=== PATIENT | female | born 1955 | race Caucasian/White ===

== ENCOUNTER 2017-06-25 11:45 | Emergency (ER) | payer OTHER, MEDICARE ==
[2017-06-25 12:19] VITALS: BP 128/73
--- NOTE | 2017-06-25 13:05 | RAD ---
INDICATION: Left great toe pain at the metatarsal phalangeal joint after a fall June 15, 2017. TECHNIQUE: 3 views of the left great toe were obtained. FINDINGS: Degenerative changes at the left metatarsal phalangeal joint include joint space narrowing, sclerotic change of the articulating services and mild marginal osteophyte formation. The visualized bones are otherwise intact and appropriately aligned. IMPRESSION: Degenerative changes at the left great toe metatarsal phalangeal joint without radiographically apparent fracture or dislocation.
--- NOTE | 2017-06-25 13:07 | RAD ---
INDICATION: Ulnar aspect right elbow pain after a fall COMPARISON: None. TECHNIQUE: 3 views right elbow. REPORT: Evaluation is limited by absence of a flexed elbow true lateral image to better discern potential effusion. Along the lateral aspect of the proximal radial head there is a focus of cortical discontinuity. There is potential shortening at the right radial head and neck. The visualized bones are otherwise intact and appropriately aligned on these limited views. IMPRESSION: 1. The absence of a true lateral flexed elbow image prevents reliable evaluation of right elbow effusion. 2. There is potentially a nondisplaced fracture involving the radial aspect of the radial head as well as possible impaction fracture of the radial head and neck. If the patient's symptoms persist further follow-up imaging is recommended.
--- NOTE | 2017-06-25 13:24 | UC ---
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 SINCE TIME OF INJURY HAS HAD CONTINUED PAIN IN BOTH AREA. NO NECK PAIN. NO LOC. NO SHOULDER, CLAVICAL OR CHEST PAIN. ABLE TO BEAR WEIGHT. PATIENT IS RIGHT HANDED. - History of Current Complaint Chief Complaint: UCLowerExtremity Stated Complaint: RIGHT ELBOW,LEFT FOOT,GREAT TOE COMPLAINT (FALL) Time Seen by Provider: 06/25/17 11:50 Hx Obtained From: Patient, Family/Pre Sales Technical Consultant Onset/Duration: Sudden Onset, Lasting Weeks Onset Of Pain: Post Accident Severity Initially: Moderate Severity Currently: Moderate Mechanism Of Injury: Fall From A Standing Position Aggravating Factor(s): Nothing Alleviating Factor(s): Nothing - Risk Factors Penetrating Injury Risk Factors: Negative - Allergies/Home Medications Allergies/Adverse Reactions: Allergies Allergy/AdvReac Type Severity Reaction Status Date / Time Amoxicillin [From Augmentin] Allergy Unknown itchy Verified 06/25/17 11:54 Clavulanic Acid Allergy Unknown itchy Verified 06/25/17 11:54 [From Augmentin] floxacin Allergy Rash Uncoded 06/25/17 11:53 Home Medications: Home Medications ALPRAZolam TAB* [Xanax TAB*] 0.25 mg PO BEDTIME PRN 06/25/17 [History Confirmed 06/25/17] Acetaminophen TAB* [Tylenol TAB*] 650 mg PO Q4H PRN 06/25/17 [History Confirmed 06/25/17] Furosemide TAB* [Lasix TAB*] 5 mg PO DAILY 06/25/17 [History Confirmed 06/25/17] LevoCETirizine TAB (NF) [Xyzal TAB (NF)] 5 mg PO DAILY 06/25/17 [History Confirmed 06/25/17] Omeprazole CAP* [Prilosec CAP* 20 MG] 20 mg PO DAILY 06/25/17 [History Confirmed 06/25/17] PMH/Surg Hx/FS Hx/Imm Hx Previously Healthy: Yes - Surgical History Surgical History: Yes Surgery Procedure, Year, and Place: BARIACTRIC SURGERY 03/24. CHOLYCYSTECTOMY . SINUS SURGERY. CARPAL TUNNEL REPAIR BILT. BACK SURGERY 1992. CATARAC SURGERY. TONSILLECTOMY - Family History Known Family History: Positive: Cardiac Disease, Hypertension - Social History Occupation: Retired Lives: With Family Alcohol Use: None Substance Use Type: None Smoking Status (MU): Never Smoked Tobacco Review of Systems Constitutional: Negative Skin: Negative Eyes: Negative ENT: Negative Respiratory: Negative Cardiovascular: Negative Gastrointestinal: Negative Genitourinary: Negative Motor: Negative Neurovascular: Negative Musculoskeletal: Arthralgia, Myalgia Neurological: Negative Psychological: Negative Is Patient Immunocompromised?: No All Other Systems Reviewed And Are Negative: Yes Physical Exam Triage Information Reviewed: Yes Appearance: Well-Appearing, No Pain Distress, Well-Nourished, Obese Vital Signs: Initial Vital Signs Temp 97.9 F 06/25/17 12:00 Pulse 84 06/25/17 12:00 Resp 18 06/25/17 12:00 BP 128/73 06/25/17 12:00 Pulse Ox 100 06/25/17 12:00 Vital Signs Reviewed: Yes Eye Exam: Normal ENT Exam: Normal Dental Exam: Normal Neck exam: Normal Neck: Positive: Supple, Nontender, No Lymphadenopathy Respiratory Exam: Normal Respiratory: Positive: Chest non-tender, Lungs clear, Normal breath sounds, No respiratory distress, No accessory muscle use Cardiovascular Exam: Normal Cardiovascular: Positive: RRR, No Murmur, Pulses Normal Abdominal Exam: Normal Musculoskeletal: Positive: No Edema, Strength Limited @ - RIGHT ELBOW, ROM Limited @ - RIGHT ELBOW, Other: - TENDERNESS TO RIGHT ELBOW; LEFT GREAT TOE AND LEFT 1ST METATARSAL Neurological Exam: Normal Psychological Exam: Normal Skin Exam: Normal Diagnostics - Radiology Interpreted by radiologist, reviewed by PAMillie. Interpretation : NO FRACTURE OF TOE OR 1ST METATARSAL, NONDISPLACED FRACTURE OF RADIAL HEAD Xray Interpretation: Positive (See Comments) Radiology Interpretation Completed By: ED Physician, Radiologist Interpreted by radiologist, reviewed by PA-C. Interpretation :IMPACTION FRACTURE OF RADIAL HEAD AND NECK Xray Interpretation: Positive (See Comments) Radiology Interpretation Completed By: ED Physician, Radiologist Minor Trauma Course/Dx - Differential Dx/Diagnosis Differential Diagnosis/HQI/PQRI: Hematoma(s), Sprain, Strain Provider Diagnoses: LEFT TOE CONTUSION, SPRAIN; RIGHT CLOSED NONDISPLACED FRACTURE RADIAL ASPECT OF RADIAL HEAD WELL AN IMPACTION FRACTURE OF RADIAL HEAD AND NECK Discharge - Discharge Plan Condition: Stable Disposition: HOME Patient Education Materials: Elbow Fracture (ED), Osteoarthritis (ED), Foot Contusion (ED) Referrals: Puma Rico MD [Medical Doctor] - Rob Aguilar MD [Primary Care Provider] -
== END 2017-06-25 13:25 | disposition home or self-care (01) ==
LOC: UCCORT 11:45
DX: S52.125A Nondisplaced fracture of head of left radius, initial encounter for closed fracture (principal); S90.112A Contusion of left great toe without damage to nail, initial encounter; W18.30XA Fall on same level, unspecified, initial encounter; Z88.1 Allergy status to other antibiotic agents
CPT/HCPCS: 99212; G0463

== ENCOUNTER 2018-05-20 16:21 | Emergency (ER) | payer MEDICARE, OTHER ==
--- OUTSIDE RECORDS SUMMARY | 2018-05-20 16:37 | XMS REPORT | Continuity of Care Document ---
:1955 External Reference #:[id number] Author Name Niki Shah Care Team Providers Name Role Phone Mary Yancey FNP Care Team Information Mercury Washer Unavailable Rob Aguilar MD Primary Care Physician Unavailable Payers Type Date Identification Numbers Payment Provider Subscriber Policy Number: [id number] Medicare Melly Jarrett PayID: [id number] [address] [place] [address] Policy Number: [id number] [employer] Melly Jarrett PayID: [id number] [address] [place] [address] Advance Directives Description No Information Available Problems Description No Information Family History Date Family Member(s) Problem(s) Comments Father Unknown Mother Unknown Social History Type Date Description Comments Sex Female Tobacco Use Start: Unknown Never Smoked Cigarettes ETOH Use Denies alcohol use Recreational Drug Use Denies Drug Use Allergies, Adverse Reactions, Alerts Date Description Reaction Status Severity Comments 01/15/2016 Floxin Active 01/20/2017 Percocet Active rash 10/22/2017 Penicillin Active 04/02/2018 Cat Dander Urticaria Active Moderate Medications Medication Date Status Form Strength Qnty SIG Indications Ordering Provider Ipratropium 01/14/ Active Solution 0.03% QS 2 sprays Ranjit Kuhn 2015 each side Scooter, nostril M.D. everyday 2 months Tizanidine HCL / Active Capsules 2mg Unknown 0000 Furosemide // Active Tablets 40mg 1 by Unknown 0000 mouth every day Paroxetine HCL / Active Tablets 40mg 1 by Unknown 0000 mouth every day Cyclobenzaprine / Active Tablets 10mg take 1 Unknown HCL 0000 tablet by mouth every 8 hours as needed for muscle spasm(s) Lisinopril-Hydroc / Active Tablets 20-12.5mg Unknown hlorothiazide 0000 Potassium / Active Capsules ER 10Meq Unknown Chloride ER 0000 Calcium + D3 / Active Tablets Unknown 0000 Levocetirizine / Active Tablets 5mg 1 by Unknown Dihydrochloride 0000 mouth every day Qnasl / Active Aerosol 80mcg/Act 1 spray Unknown 0000 to both nostrils once daily. Verapamil HCL ER / Active Caps ER 120mg 1 by Unknown 0000 24HR mouth every day Medrol / Active Tablets as on the Unknown 0000 pack Prednisone 08/07/ Hx Tablets 10mg 3tabs 1 by Bam 2016 - mouth Scooter, 05/06/ every M.D. 2018 morning Azithromycin 07/21/ Hx Tablets 250mg 6tabs 2 pills x Bam 2016 - day Scooter, 08/07/ then M.D. 2016 every day for 4 days Azithromycin 01/21/ Hx Tablets 500mg 5tabs 1 by Bam 2016 - mouth Scooter, 03/30/ every day M.D. 2016 Dexamethasone 01/21/ Hx Tablets 4mg 3tabs one tab Bam 2016 - daily for Scooter, 03/30/ 3 days M.D. 2016 Percocet 01/16/ Hx Tablets 5-325mg 20tab 1-2 by Bam 2016 - s mouth Scooter, 01/20/ four M.D. 2017 times a day as needed for pain Augmentin 10/16/ Hx Tablets 875-125mg 20tab twice a Bam 2016 - s day 1 [facility], 11/06/ week M.D. 2016 Azithromycin 09/09/ Hx Tablets 250mg 6tabs 2 pills x Bam 2016 - day Scooter, 09/29/ M.D. 2016 every day for 4 days Zaleplon 09/09/ Hx Capsules 5mg 1caps 1 by Bam 2016 - mouth at [facility], 09/29/ bedtime M.D. 2016 Fluticasone 03/01/ Hx Suspension 50mcg/Act 1unit 2 sprays Julia Kuhn 2015 - s both Scooter, 08/06/ nostrils M.D. 2016 every day Amoxicillin 02/20/ Hx Tablets 875mg 14tab twice a Bam 2015 - s day 1 [facility], 03/12/ week M.D. 2016 Immunizations Description No Information Available Vital Signs Date Vital Result Comment 05/07/2018 3:13pm Weight 216.00 lb Height 63 inches 5'3" BMI (Body Mass Index) 38.3 kg/m2 BP Systolic 123 mmHg BP Diastolic 81 mmHg Heart Rate 72 /min O2 % BldC Oximetry 96 % Body Temperature 98.3 F Pain Level 0 04/02/2018 1:10pm Weight 214.00 lb Height 63 inches 5'3" BMI (Body Mass Index) 37.9 kg/m2 BP Systolic 127 mmHg BP Diastolic 74 mmHg Heart Rate 93 /min O2 % BldC Oximetry 98 % Body Temperature 97.6 F Pain Level 5 10/22/2017 11:20am Weight 232.50 lb Height 63 inches 5'3" BMI (Body Mass Index) 41.2 kg/m2 BP Systolic 136 mmHg Right lower arm BP Diastolic 67 mmHg Right lower arm Heart Rate 76 /min O2 % BldC Oximetry 96 % Body Temperature 98.4 F Pain Level 1 08/07/2017 1:22pm Weight 246.00 lb Height 63 inches 5'3" BMI (Body Mass Index) 43.6 kg/m2 BP Systolic 122 mmHg BP Diastolic 72 mmHg Heart Rate 86 /min O2 % BldC Oximetry 96 % Body Temperature 97.7 F Pain Level 0 03/31/2017 1:05pm Weight 286.00 lb Height 63 inches 5'3" BMI (Body Mass Index) 50.7 kg/m2 BP Systolic 135 mmHg BP Diastolic 82 mmHg Heart Rate 89 /min O2 % BldC Oximetry 97 % Body Temperature 98.2 F 01/23/2017 1:12pm Weight 298.00 lb Height 63 inches 5'3" BMI (Body Mass Index) 52.8 kg/m2 BP Systolic 134 mmHg BP Diastolic 86 mmHg Heart Rate 82 /min O2 % BldC Oximetry 95 % Body Temperature 97.8 F 11/07/2016 9:54am Weight 299.00 lb Height 63 inches 5'3" BMI (Body Mass Index) 53.0 kg/m2 BP Systolic 130 mmHg BP Diastolic 74 mmHg Heart Rate 92 /min O2 % BldC Oximetry 96 % Body Temperature 98.1 F 10/30/2016 9:23am Weight 303.00 lb Height 63 inches 5'3" BMI (Body Mass Index) 53.7 kg/m2 BP Systolic 128 mmHg BP Diastolic 82 mmHg Heart Rate 91 /min O2 % BldC Oximetry 97 % Body Temperature 98.2 F 10/16/2016 9:00am Weight 303.00 lb Height 63 inches 5'3" BMI (Body Mass Index) 53.7 kg/m2 BP Systolic 146 mmHg BP Diastolic 83 mmHg Heart Rate 87 /min O2 % BldC Oximetry 97 % Body Temperature 97.8 F 09/30/2016 1:05pm Weight 310.00 lb Height 63 inches 5'3" BMI (Body Mass Index) 54.9 kg/m2 BP Systolic 138 mmHg BP Diastolic 86 mmHg Heart Rate 84 /min O2 % BldC Oximetry 96 % Body Temperature 97.8 F 09/09/2016 2:31pm Weight 315.25 lb Height 63 inches 5'3" BMI (Body Mass Index) 55.8 kg/m2 Heart Rate 78 /min O2 % BldC Oximetry 99 % Body Temperature 98.6 F Sabine Score 0 03/13/2016 1:33pm Weight 303.00 lb Height 63 inches 5'3" BMI (Body Mass Index) 53.7 kg/m2 BP Systolic 145 mmHg BP Diastolic 86 mmHg Heart Rate 103 /min O2 % BldC Oximetry 89 % Body Temperature 98.6 F 02/15/2016 10:09am Weight 302.00 lb Height 63 inches 5'3" BMI (Body Mass Index) 53.5 kg/m2 Heart Rate 103 /min O2 % BldC Oximetry 98 % Body Temperature 97.6 F 01/15/2016 1:50pm Weight 301.00 lb Height 63 inches 5'3" BMI (Body Mass Index) 53.3 kg/m2 BP Systolic 120 mmHg BP Diastolic 82 mmHg Heart Rate 95 /min O2 % BldC Oximetry 97 % Body Temperature 97.8 F Results Description No Information Available Procedures Date Code Description Status 04/02/2018 98319 Nasal Endoscopy, Diag. Completed 01/16/2017 30297 Stereotactic Computer-Assisted, Cranial, Extradural Completed 01/16/2017 03902 Nasal/Sinus Endoscopy Surg/Sphen. Completed 01/16/2017 43229 Nasal/Sinus Endosc.W.Max.Antrost. Completed 01/16/2017 89499 Nasal/Sinus Endosc.Surg.W.Ethmoid Completed 01/16/2017 04392 Septoplasty Completed 01/16/2017 35882 Submucous Resect.Turb.Par Or Comp Completed 01/16/2017 71899 Anesthesia, Nose & Accessory Sinus Surgery Not Otherwise Completed Spec 10/16/2016 31294 Nasal Endoscopy, Diag. Completed 09/15/2016 72630 Sleep Staging 4Or More Para Completed 02/15/2016 60787 Fiberoptic Laryngoscopy,Diag. Completed 01/15/2016 57169 Fiberoptic Laryngoscopy,Diag. Completed Encounters Type Date Location Provider Dx Diagnosis Office Visit 04/02/2018 1:15p Main Office Scooter Kuhn M.D. J31.0 Chronic rhinitis J32.9 Chronic sinusitis, unspecified Office Visit 10/22/2017 11:15a Main Office Carol Bocanegra J34.2 Deviated nasal [employer] septum J34.3 Hypertrophy of nasal turbinates Office Visit 08/07/2017 1:00p Main Office Carol Nolen J01.80 Other acute Bocanegra, [employer] sinusitis Office Visit 11/07/2016 9:45a Main Office Scooter Kuhn G47.33 Obstructive sleep M.D. apnea (adult) (pediatric) J32.9 Chronic sinusitis, unspecified J34.2 Deviated nasal septum J34.3 Hypertrophy of nasal turbinates Office Visit 10/30/2016 9:15a Main Office Scooter Kuhn G47.33 Obstructive sleep M.D. apnea (adult) (pediatric) J32.9 Chronic sinusitis, unspecified J34.2 Deviated nasal septum J34.3 Hypertrophy of nasal turbinates Office Visit 10/16/2016 9:00a Main Office Scooter Kuhn G47.33 Obstructive sleep M.D. apnea (adult) (pediatric) J32.9 Chronic sinusitis, unspecified J34.2 Deviated nasal septum Office Visit 09/30/2016 1:00p Main Office Carol Nolen G47.33 Obstructive sleep Bocanegra, [employer] apnea (adult) (pediatric) Office Visit 09/09/2016 2:30p Main Office Carol Nolen G47.9 Sleep disorder, Bocanegra, [employer] unspecified R09.82 Postnasal drip R06.83 Snoring Office Visit 03/13/2016 1:45p Main Office Carol Nolen J32.9 Chronic sinusitis, Bocanegra, [employer] unspecified J34.2 Deviated nasal septum R09.82 Postnasal drip Office Visit 02/15/2016 10:15a Main Office Scooter Kuhn, J34.2 Deviated nasal M.D. septum J32.9 Chronic sinusitis, unspecified E66.9 Obesity, unspecified R09.82 Postnasal drip K21.9 Gastro-esophageal reflux disease without esophagitis Office Visit 01/15/2016 1:15p Main Office Scooter Kuhn, J34.2 Deviated nasal M.D. septum J31.0 Chronic rhinitis J34.3 Hypertrophy of nasal turbinates R09.82 Postnasal drip K21.9 Gastro-esophageal reflux disease without esophagitis E66.9 Obesity, unspecified Plan of Treatment 09/09/2016 - Carol Bocanegra, NPG47.9 Sleep disorder, wthmuoxpchiG79.82 Postnasal dripR06.83 SnoringNew Orders:PSG - Sleep Study, Scheduled: 09/15/16
--- OUTSIDE RECORDS SUMMARY | 2018-05-20 16:37 | XMS REPORT ---
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 Rob Aguilar MD Primary Care Physician Unavailable Payers Type Date Identification Numbers Payment Provider Subscriber Medicare Primary Policy Number: [id number] [place] Melly Jarrett PayID: [id number] [address] [place] [address] Commercial Policy Number: [id number] [facility] Melly Pérezken PayID: [id number] [address] [address] [place] [address] Problems Date Description Provider Status Onset: 06/26/2016 Allergic rhinitis due to pollen Kevin Viera MD Active Onset: 06/26/2016 Allergic rhinitis Kevin Viera MD Active Onset: 07/11/2016 Cough GAVIN King Active Onset: 11/14/2016 Posterior rhinorrhea GAVIN King Active Onset: 03/10/2018 Allergic urticaria KATHRYN Brown Active Onset: 04/14/2018 Angioneurotic edema, subsequent Kevin Viera MD Active encounter Onset: 04/29/2018 Allergy to other foods Kevin Viera MD Active Social History Type Date Description Comments Smoke-Free Home is smoke-free Pets several cats Cigarette Use Never Smoked Cigarettes Smoking Patient has never smoked Allergies, Adverse Reactions, Alerts Date Description Reaction Status Severity Comments 06/26/2016 Floxin active 05/06/2017 Amoxicillin Urticaria active 11/17/2017 Montelukast active 01/20/2018 Penicillin active hives all over Medications Medication Date Status Form Strength Qnty SIG Indications Ordering Provider Medrol 04/29 Active TBPK 4mg 21uni take as L50.0 ts directed Santiago Viera MD Cetirizine 04/29 Active Tablets 10mg 30tab take one L50.0 opher HCL s tablet by Santiago Viera MD mouth every day at bedtime Benadryl 04/16 Active Tablets 25mg 90tab Take 2 tabs L50.0 s every 6 Santiago Viera MD hours as needed. Auvi-Q 02/03 Active Solution 0.3mg/0.3 4unit use as Auto-Inject ML s directed Santiago Viera MD Epinephrine 01/02 Active Solution 0.3mg/0.3 1unit One dose L50.0 Auto-Inject ML s injected Santiago Viera MD into lateral side of thigh. Repeat dose if needed after 5-15 minutes. Julita 01/02 Active Tablets 180mg 30tab Take one L50.0 opher Allergy s tab by Santiago Viera MD mouth daily in the morning. Nasonex 11/04 Active Suspension 50mcg/Act 17gm Rule 2 J30.1 sprays in Santiago Viera MD each nostril by intranasal route once daily. Verapamil HCL Active Tablets 120mg Niziol, Rob Gann MD Lisinopril Active Tablets 2.5mg Unknown Lasix Active Tablets 40mg Unknown / Flax Seed Oil Active Unknown Paroxetine Active Tablets 40mg Niziol, HCL 0000 Rob Gann MD Omeprazole Active Capsules DR 40mg Niziol, Rob Gann MD Buspirone HCL Active Tablets 10mg 1 po bid Unknown Hydroxyzine Active Tablets 25mg take one Unknown HCL /0000 tablet by mouth every 6hrs prn Medrol 04/16 Hx Tablets 4mg 15tab take 5 L50.0 s tablets day Santiago Viera MD - 1, take 4 04/14 tabs day 2, take 3 tabs day 3, take 2 tabs day 4. then take 1 tab on day 5. Prednisone 02/03 Hx Tablets 10mg 24tab take 3 s tablets by Santiago Viera MD - mouth twice 04/14 a day for 4 days. take with food. Medrol 01/02 Hx Tablets 4mg 15tab take 5 L50.0 s tablets day Santiago Viera MD - 1, take 4 04/14 tabs day 2, take 3 tabs day 3, take 2 tabs day 4. then take 1 tab on day 5. Singulair 11/04 Hx Chewtabs 5mg 60uni Chew 2 J30.1 ts tablets by Santiago Viera MD - mouth daily 11/12 in the evening. Medrol 05/06 Hx Tablets 4mg 15tab take 5 s tablets day Santiago Viera MD - 1, take 4 11/04 tabs day 2, take 3 tabs day 3, take 2 tabs day 4. then take 1 tab on day 5. Qnasl 06/26 Hx Aerosol 80mcg/Act 1unit 2 puffs J30.1 s each Santiago Viera MD - nostril 11/14 every Xyzal 06/26 Hx Tablets 5mg 30tab 1 tab by J30.1 s mouth every Santiago Viera MD - day as 11/04 Bupropion HCL Hx Tablets ER 150mg Niziol, ER (SR) /0000 12HR Seymour Olvera MD 11/14 Potassium Hx Tablets ER 10Meq Niziol, Chloride ER /0000 Seymour Olvera MD 08/15 Paroxetine Hx Tablets 40mg Niziol, HCL /0000 Seymour Olvera MD 08/15 Meloxicam Hx Tablets 15mg 1 x a day Unknown /0000 as needed - 08/15 Hair/Skin/Hayley Hx Unknown ls /0000 - 11/14 Super B Hx Unknown Complex Maxi /0000 - 11/04 Womens Hx Unknown Multivitamin /0000 Plus - 11/04 Calcium 00/00 Hx Tablets 600-800mg Unknown 600+D3 /0000 -Unit - 11/04 Folic Acid /00 Hx Unknown / - 11/04 Vitamin E Hx Capsules 400Unit Unknown Blend / - 11/14 Magnesium /00 Hx Tablets 400mg Unknown / - 11/04 Nexium / Hx Unknown / - 11/14 Doxylamine Hx Unknown Succinate / - 08/15 Tramadol HCL Hx Tablets 50mg Unknown / - 11/04 Furosemide Hx Tablets 40mg Unknown / - 11/14 Verapamil HCL Hx Tablets ER 120mg Unknown ER / - 11/14 Doxycycline Hx Capsules 100mg one tablet Unknown Hyclate /0000 by mouth - once a day 11/04 Bactrim DS Hx Tablets 800-160mg twice a day Unknown /0000 for 14 days - 12/07 Medications Administered in Office Medication Date Status Form Strength Qnty SIG Indications Ordering Provider Benadryl (To 04/14/ Administered Injection Christopher 50 MG) 2017 Santiago Viera MD Celestone (3 04/14/ Administered Injection Christopher MG) 2017 Santiago iVera MD Therapeutic, 04/14/ Administered Injection Christopher Prophylactic 2017 Santiago Viera MD Or Diagnostic Injection Subq/Im Allergy 04/09/ Administered Injection Christopher Injection 2 Or 2017 Santiago Viera MD More Allergy 03/31/ Administered Injection Christopher Injection 2017 Santiago Viera MD Single Allergy 03/24/ Administered Injection Christopher Injection 2 Or 2017 Santiago Viera MD More Allergy 03/19/ Administered Injection Christopher Injection 2 Or 2017 Santiago Viera MD More Allergy 03/03/ Administered Injection Christopher Injection 2 Or 2017 Santiago Viera MD More Allergy 02/24/ Administered Injection Christopher Injection 2 Or 2017 Santiago Viera MD More Allergy 02/17/ Administered Injection Christopher Injection 2 Or 2017 Santiago Viera MD More Allergy 02/10/ Administered Injection Christopher Injection 2 Or 2017 Santiago Viera MD More Allergy 01/27/ Administered Injection Christopher Injection 2 Or 2017 Santiago Viera MD More Allergy 01/20/ Administered Injection Christopher Injection 2 Or 2017 Santiago Viera MD More Allergy 01/06/ Administered Injection Christopher Injection 2 Or 2017 Santiago Viera MD More Allergy 12/30/ Administered Injection Christopher Injection 2 Or 2017 Santiago Viera MD More Allergy 12/23/ Administered Injection Christopher Injection 2 Or 2017 Santiago Viera MD More Allergy 12/16/ Administered Injection Christopher Injection 2 Or 2017 Santiago Viera MD More Allergy 12/09/ Administered Injection Christopher Injection 2 Or 2017 Santiago Viera MD More Allergy 12/04/ Administered Injection Christopher Injection 2 Or 2017 Santiago Viera MD More Allergy 11/25/ Administered Injection Christopher Injection 2 Or 2017 Santiago Viera MD More Allergy 11/18/ Administered Injection Christopher Injection 2 Or 2017 Santiago Viera MD More Allergy 11/13/ Administered Injection Christopher Injection 2 Or 2017 Santiago Viera MD More [place] (3 04/15/ Administered Injection Christopher MG) 2016 Santiago Viera MD Therapeutic, 04/15/ Administered Injection Christopher Prophylactic 2016 Santiago Viera MD Or Diagnostic Injection Subq/Im Vital Signs Date Vital Result Comment 05/05/2018 BP Systolic 144 mmHg BP Diastolic 86 mmHg Height 63 inches 5'3" Weight 210.00 lb BMI (Body Mass Index) 37.2 kg/m2 Heart Rate 78 /min Respiratory Rate 18 /min Body Temperature 95.6 F O2 % BldC Oximetry 99 % 04/29/2018 BP Systolic 142 mmHg BP Diastolic 86 mmHg Height 63 inches 5'3" Weight 210.00 lb BMI (Body Mass Index) 37.2 kg/m2 Heart Rate 90 /min Respiratory Rate 18 /min Body Temperature 98.0 F O2 % BldC Oximetry 98 % 04/16/2018 BP Systolic 132 mmHg BP Diastolic 70 mmHg Height 63 inches 5'3" Weight 211.00 lb BMI (Body Mass Index) 37.4 kg/m2 Heart Rate 72 /min Respiratory Rate 16 /min Body Temperature 97.9 F O2 % BldC Oximetry 98 % 04/14/2018 BP Systolic 112 mmHg BP Diastolic 68 mmHg Height 63 inches 5'3" Weight 211.00 lb BMI (Body Mass Index) 37.4 kg/m2 Heart Rate 83 /min Respiratory Rate 18 /min Body Temperature 98.7 F O2 % BldC Oximetry 94 % 03/10/2018 BP Systolic 118 mmHg BP Diastolic 72 mmHg Height 63 inches 5'3" Heart Rate 78 /min Body Temperature 97.8 F O2 % BldC Oximetry 98 % 01/02/2018 BP Systolic 126 mmHg BP Diastolic 72 mmHg Height 63 inches 5'3" Weight 219.00 lb BMI (Body Mass Index) 38.8 kg/m2 Heart Rate 84 /min Respiratory Rate 18 /min Body Temperature 98.0 F O2 % BldC Oximetry 99 % 11/04/2017 BP Systolic 126 mmHg BP Diastolic 78 mmHg Height 63 inches 5'3" Weight 230.00 lb BMI (Body Mass Index) 40.7 kg/m2 Heart Rate 88 /min Respiratory Rate 16 /min Body Temperature 97.2 F O2 % BldC Oximetry 99 % 05/06/2017 Height 63 inches 5'3" Weight 325.00 lb BMI (Body Mass Index) 57.6 kg/m2 Heart Rate 75 /min Respiratory Rate 20 /min Body Temperature 97.9 F O2 % BldC Oximetry 99 % 11/14/2016 BP Systolic 138 mmHg BP Diastolic 84 mmHg Height 63 inches 5'3" Weight 325.00 lb BMI (Body Mass Index) 57.6 kg/m2 Heart Rate 77 /min Respiratory Rate 20 /min Body Temperature 97.7 F O2 % BldC Oximetry 93 % 08/15/2016 BP Systolic 140 mmHg BP Diastolic 90 mmHg Height 63 inches 5'3" Weight 325.00 lb BMI (Body Mass Index) 57.6 kg/m2 Heart Rate 93 /min Respiratory Rate 20 /min Body Temperature 97.2 F O2 % BldC Oximetry 98 % 07/11/2016 Height 63 inches 5'3" Weight 334.00 lb BMI (Body Mass Index) 59.2 kg/m2 Heart Rate 98 /min Respiratory Rate 16 /min Body Temperature 98.6 F O2 % BldC Oximetry 95 % 06/26/2016 BP Systolic 134 mmHg BP Diastolic 82 mmHg Height 63 inches 5'3" Weight 334.00 lb BMI (Body Mass Index) 59.2 kg/m2 Heart Rate 96 /min Respiratory Rate 16 /min Body Temperature 97.4 F O2 % BldC Oximetry 96 % Results Description No Information Procedures Date CPT Code Description Status 04/14/2018 88247 Therapeutic, Prophylactic Or Diagnostic Injection Completed Subq/Im 04/09/2018 87967 Allergy Injection 2 Or More Completed 03/31/2018 51886 Allergy Injection Single Completed 03/24/2018 16685 Allergy Injection 2 Or More Completed 03/19/2018 77662 Allergy Injection 2 Or More Completed 03/03/2018 55293 Allergy Injection 2 Or More Completed 02/24/2018 73133 Allergy Injection 2 Or More Completed 02/17/2018 42032 Allergy Injection 2 Or More Completed 02/10/2018 19301 Allergy Injection 2 Or More Completed 01/27/2018 51874 Allergy Injection 2 Or More Completed 01/20/2018 38215 Allergy Injection 2 Or More Completed 01/06/2018 83036 Allergy Injection 2 Or More Completed 12/30/2017 56312 Allergy Injection 2 Or More Completed 12/23/2017 45436 Allergy Injection 2 Or More Completed 12/16/2017 69828 Allergy Injection 2 Or More Completed 12/09/2017 15876 Allergy Injection 2 Or More Completed 12/04/2017 27107 Allergy Injection 2 Or More Completed 11/25/2017 14503 Allergy Injection 2 Or More Completed 11/18/2017 73556 Allergy Injection 2 Or More Completed 11/13/2017 70604 Allergy Injection 2 Or More Completed 11/10/2017 53418 Allergy Antigens Single Or Multiple Completed 04/15/2017 67318 Therapeutic, Prophylactic Or Diagnostic Injection Completed Subq/Im 11/14/2016 13907 Nitric Oxide Gas Determination Completed 11/14/2016 72067 Bronchodilation Responsiveness Spirometry Pre/Post Completed Bronchodil Adm 07/11/2016 56259 Education/Training PT Self-Management Each 30Minutes Completed Indiv PT 06/26/2016 26903 Allergy Tests Percutaneous W/ Allergenic Extracts Completed Encounters Type Date Location Provider CPT E/M Dx Office Visit 04/29/2018 10:30[place] [address] L50.0 Z91.018 Office Visit 04/16/2018 1:00p KATHRYN Rodriguez 20715 L50.0 J30.89 J30.1 Office Visit 04/14/2018 2:00[place] [address] T78.3xxD Office Visit 03/10/2018 11:00a KATHRYN Rodriguez 98114 J30.1 J30.89 L50.0 Office Visit 01/02/2018 1:00p KATHRYN Moore 72682 L50.0 Office Visit 11/04/2017 10:00a Tony Mckay [facility] 55565 J30.1 J30.89 R09.82 Office Visit 05/06/2017 8:45a [place] [address] J30.1 J30.89 Office Visit 04/15/2017 4:15p [place] [address] J30.1 J30.89 Office Visit 11/14/2016 10:30a Tony Mckay [facility] 28968 J30.1 J30.89 R09.82 R05 Office Visit 08/15/2016 11:00a Tony Mckay [facility] 48578 R05 J30.1 J30.89 Office Visit 07/11/2016 2:00p Tony Mckay [facility] 66717 R05 J30.1 J30.89 Office Visit 06/26/2016 10:30[place] [address] J30.1 J30.89 Plan of Care 04/29/2018 - Kevin Viera MDL50.0 Allergic urticariaNew Medication: Medrol 4 mgCetirizine HCL 10 mgZ91.018 Allergy to other foods
--- OUTSIDE RECORDS SUMMARY | 2018-05-20 16:37 | XMS REPORT ---
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 Nasonex 11/04 Active Suspension 50mcg/Act 17gm [place] 2 J30.1 sprays in Santiago Viera MD [...] ER 10Meq Niziol, Chloride ER /0000 Seymour Olvear MD 08/15 Paroxetine Hx Tablets 40mg Niziol, [...] 04/14/ Administered Injection Christopher MG) 2017 Santiago Viera MD Therapeutic, 04/14/ Administered Injection Christopher Prophylactic [...] Procedures Date CPT Code Description Status 04/14/2018 34449 Therapeutic, Prophylactic Or Diagnostic Injection Completed Subq/Im 04/09/2018 84802 Allergy Injection 2 Or More Completed 03/31/2018 97396 Allergy Injection Single Completed 03/24/2018 18463 Allergy Injection 2 Or More Completed 03/19/2018 21880 Allergy Injection 2 Or More Completed 03/03/2018 58998 Allergy Injection 2 Or More Completed 02/24/2018 36131 Allergy Injection 2 Or More Completed 02/17/2018 36787 Allergy Injection 2 Or More Completed 02/10/2018 58765 Allergy Injection 2 Or More Completed 01/27/2018 35400 Allergy Injection 2 Or More Completed 01/20/2018 34358 Allergy Injection 2 Or More Completed 01/06/2018 08444 Allergy Injection 2 Or More Completed 12/30/2017 41348 Allergy Injection 2 Or More Completed 12/23/2017 38360 Allergy Injection 2 Or More Completed 12/16/2017 20459 Allergy Injection 2 Or More Completed 12/09/2017 51973 Allergy Injection 2 Or More Completed 12/04/2017 14807 Allergy Injection 2 Or More Completed 11/25/2017 57961 Allergy Injection 2 Or More Completed 11/18/2017 97606 Allergy Injection 2 Or More Completed 11/13/2017 97090 Allergy Injection 2 Or More Completed 11/10/2017 34896 Allergy Antigens Single Or Multiple Completed 04/15/2017 15765 Therapeutic, Prophylactic Or Diagnostic Injection Completed Subq/Im 11/14/2016 97235 Nitric Oxide Gas Determination Completed 11/14/2016 56169 Bronchodilation Responsiveness Spirometry Pre/Post Completed Bronchodil Adm 07/11/2016 79172 Education/Training PT Self-Management Each 30Minutes Completed Indiv PT 06/26/2016 13432 Allergy Tests Percutaneous W/ Allergenic Extracts Completed Encounters Type Date Location Provider CPT E/M Dx Office Visit 04/29/2018 10:30[place] [address] L50.0 Z91.018 Office Visit 04/16/2018 1:00p KATHRYN Rodriguez 14023 L50.0 J30.89 J30.1 Office Visit 04/14/2018 2:00[place] [address] T78.3xxD Office Visit 03/10/2018 11:00a KATHRYN Rodriguez 47737 J30.1 J30.89 L50.0 Office Visit 01/02/2018 1:00p KATHRYN Moore 59180 L50.0 Office Visit 11/04/2017 10:00a Tony Mckay [facility] 69903 J30.1 J30.89 R09.82 Office Visit 05/06/2017 8:45[place] [address] J30.1 J30.89 Office Visit 04/15/2017 4:15p [place] [address] J30.1 J30.89 Office Visit 11/14/2016 10:30a Tony Mckay [facility] 84383 J30.1 J30.89 R09.82 R05 Office Visit 08/15/2016 11:00a Tony Mckay [facility] 33581 R05 J30.1 J30.89 Office Visit 07/11/2016 2:00p Tony Mckay [facility] 62493 R05 J30.1 J30.89 Office Visit 06/26/2016 10:30[place] [address] J30.1 J30.89 Plan of Care No Information Available
--- OUTSIDE RECORDS SUMMARY | 2018-05-20 16:38 | XMS REPORT ---
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 Rob Aguilar MD Primary Care Physician Unavailable Payers Type Date Identification Numbers Payment Provider Subscriber Medicare Primary Policy Number: [id number] [place] Melly Jarrett PayID: [id number] [address] [place] [address] Commercial Policy Number: [id number] [facility] Melly Pérezken PayID: [id number] [address] [address] [place] [address] Problems Date Description Provider Status Onset: 04/14/2018 Angioneurotic edema, subsequent Kevin Viera MD Active encounter Onset: 03/10/2018 Allergic urticaria KATHRYN Brown Active Onset: 11/14/2016 Posterior rhinorrhea GAVIN King Active Onset: 07/11/2016 Cough GAVIN King Active Onset: 06/26/2016 Allergic rhinitis Kevin Viera MD Active Onset: 06/26/2016 Allergic rhinitis due to pollen Kevin Viera MD Active Social History Type [...] Strength Qnty SIG Indications Ordering Provider Medrol 04/16 Active Tablets 4mg 15tab take 5 L50.0 s tablets day Santiago Viera MD 1, take 4 tabs day 2, take 3 tabs day 3, take 2 tabs day 4. then take 1 tab on day 5. Benadryl 04/16 Active Tablets 25mg 90tab Take [...] Active Tablets 180mg 30tab Take one L50.0 s tab by Santiago Viera MD mouth daily in the morning. Nasonex 11/04 Active Suspension 50mcg/Act 17gm [place] 2 J30.1 sprays in Santiago Viera MD each nostril by intranasal route once daily. Verapamil HCL Active Tablets 120mg Niziol, Rob Gann MD Lisinopril Active Tablets 2.5mg Unknown / Lasix Active Tablets 40mg Unknown /0000 Flax Seed Oil Active Unknown Paroxetine Active Tablets 40mg Niziol, HCL Rob Gann MD Omeprazole Active Capsules DR 40mg Niziol, Rob Gann MD Buspirone HCL Active Tablets 10mg 1 po bid Unknown Hydroxyzine Active Tablets 25mg take one Unknown HCL /0000 tablet by mouth every 6hrs prn Prednisone 02/03 Hx Tablets 10mg 24tab take 3 s tablets by Santiago Viera MD - mouth twice 08/07 a day for days. take with food. Medrol 01/02 Hx [...] Santiago Viera MD - day as 11/04 needed Bupropion HCL Hx Tablets ER 150mg Niziol, ER (SR) /0000 12HR Seymour Olvera MD 11/14 Potassium Hx Tablets ER 10Meq Niziol, Chloride ER /0000 Seymour Olvera MD 08/15 Paroxetine Hx Tablets 40mg Niziol, HCL /0000 Seymour Olvera MD 08/15 Meloxicam Hx Tablets 15mg 1 x a day Unknown / as needed - 08/15 Hair/Skin/Hayley Hx Unknown ls - 11/14 Super B Hx Unknown Complex Maxi - 11/04 Womens / Hx Unknown Multivitamin /0000 Plus - 11/04 Calcium Hx Tablets 600-800mg Unknown 600+D3 / -11/04 Folic Acid / Hx Unknown / - 11/04 Vitamin E 00/ Hx Capsules 400Unit Unknown Blend / - 11/14 Magnesium /00 Hx Tablets 400mg Unknown / - 11/04 Nexium / Hx Unknown / - 11/14 Doxylamine 00 Hx Unknown Succinate /0000 - 08/15 Tramadol HCL Hx Tablets 50mg Unknown - 11/04 Furosemide Hx Tablets 40mg Unknown - 11/14 Verapamil HCL Hx Tablets ER 120mg Unknown ER - 11/14 Doxycycline Hx Capsules 100mg one [...] Subq/Im Vital Signs Date Vital Result Comment 04/29/2018 BP Systolic 142 mmHg BP Diastolic [...] Procedures Date CPT Code Description Status 04/14/2018 96444 Therapeutic, Prophylactic Or Diagnostic Injection Completed Subq/Im 04/09/2018 24442 Allergy Injection 2 Or More Completed 03/31/2018 29156 Allergy Injection Single Completed 03/24/2018 22696 Allergy Injection 2 Or More Completed 03/19/2018 04784 Allergy Injection 2 Or More Completed 03/03/2018 01116 Allergy Injection 2 Or More Completed 02/24/2018 44152 Allergy Injection 2 Or More Completed 02/17/2018 07671 Allergy Injection 2 Or More Completed 02/10/2018 01603 Allergy Injection 2 Or More Completed 01/27/2018 60153 Allergy Injection 2 Or More Completed 01/20/2018 96722 Allergy Injection 2 Or More Completed 01/06/2018 75378 Allergy Injection 2 Or More Completed 12/30/2017 58565 Allergy Injection 2 Or More Completed 12/23/2017 72169 Allergy Injection 2 Or More Completed 12/16/2017 45085 Allergy Injection 2 Or More Completed 12/09/2017 71202 Allergy Injection 2 Or More Completed 12/04/2017 22880 Allergy Injection 2 Or More Completed 11/25/2017 76943 Allergy Injection 2 Or More Completed 11/18/2017 58576 Allergy Injection 2 Or More Completed 11/13/2017 50638 Allergy Injection 2 Or More Completed 11/10/2017 09078 Allergy Antigens Single Or Multiple Completed 04/15/2017 41292 Therapeutic, Prophylactic Or Diagnostic Injection Completed Subq/Im 11/14/2016 07936 Nitric Oxide Gas Determination Completed 11/14/2016 16974 Bronchodilation Responsiveness Spirometry Pre/Post Completed Bronchodil Adm 07/11/2016 51309 Education/Training PT Self-Management Each 30Minutes Completed Indiv PT 06/26/2016 21683 Allergy Tests Percutaneous W/ Allergenic Extracts Completed Encounters Type Date Location Provider CPT E/M Dx Office Visit 04/16/2018 1:00p KATHRYN Rodriguez 37689 L50.0 J30.89 J30.1 Office Visit 04/14/2018 2:00[place] [address] T78.3xxD Office Visit 03/10/2018 11:00a KATHRYN Rodriguez 07348 J30.1 J30.89 L50.0 Office Visit 01/02/2018 1:00p KATHRYN Moore 86825 L50.0 Office Visit 11/04/2017 10:00a Tony Mckay RPA-C 98834 J30.1 J30.89 R09.82 Office Visit 05/06/2017 8:45[place] [address] J30.1 J30.89 Office Visit 04/15/2017 4:15p [place] [address] J30.1 J30.89 Office Visit 11/14/2016 10:30a Tony Mckay RPA-C 55338 J30.1 J30.89 R09.82 R05 Office Visit 08/15/2016 11:00a Tony Mckay RPA-C 85745 R05 J30.1 J30.89 Office Visit 07/11/2016 2:00p Tony Mckay [facility] 50559 R05 J30.1 J30.89 Office Visit 06/26/2016 10:30[place] [address] J30.1 J30.89 Plan of Care Future Appointment(s):05/05/2018 8:45 am - Kevin Viera MD at [place]
--- OUTSIDE RECORDS SUMMARY | 2018-05-20 16:38 | XMS REPORT ---
:1955 External Reference #:[id number] Author Organization [facility] Address [address] [place] [address] Phone [phone] Care Team Providers Name Role Phone Rob Aguilar MD Care Team Information Chain Offbearer Unavailable Rob Aguilar MD Primary Care Physician Unavailable Payers Type Date Identification Numbers Payment Provider Subscriber Medicare Primary Policy Number: [id number] [employer] [place] Melly Jarrett PayID: [id number] [address] [place] [address] Commercial Policy Number: [id number] [facility] Melly Pérezken PayID: [id number] [address] [address] [place] [address] Problems Date Description Provider Status Onset: 06/26/2016 [...] Active Tablets 10mg 30tab take one L50.0 Christopher s tablet by Santiago Viera MD mouth every day at bedtime Medrol 04/16 Active Tablets 4mg 15tab take 5 L50.0 opher s tablets day Santiago Viera MD 1, take 4 tabs day 2, take 3 tabs day 3, take 2 tabs day 4. then take 1 tab on day 5. Benadryl 04/16 Active Tablets 25mg 90tab Take 2 tabs L50.0 oph s every 6 Santiago Viera MD hours [...] morning. Nasonex 11/04 Active Suspension 50mcg/Act 17gm [place] 2 J30.1 sprays in Santiago Viera MD each nostril by intranasal route once daily. Verapamil HCL Active Tablets 120mg Niziol, Rob Gann MD Lisinopril Active Tablets 2.5mg Unknown Lasix Active Tablets 40mg Unknown Flax Seed Oil Active Unknown Paroxetine Active Tablets 40mg Niziol, HCL Rob Gann MD Omeprazole Active Capsules DR 40mg Niziol, Rob Gann MD Buspirone HCL Active Tablets 10mg 1 po bid Hydroxyzine Active Tablets 25mg take one Unknown HCL /0000 tablet by mouth every 6hrs prn Prednisone 02/03 Hx Tablets 10mg 24tab take 3 s tablets by Santiago Viera MD - mouth twice 04/14 a day for days. take with food. [...] 80mcg/Act 1unit 2 puffs J30.1 s each Satniago Viera MD - nostril 11/14 every Xyzal [...] Unknown Multivitamin /0000 Plus - 11/04 Calcium 00/ Hx Tablets 600-800mg Unknown 600+D3 /0000 -Unit - 11/04 Folic Acid / Hx Unknown / - 11/04 Vitamin E Hx Capsules 400Unit Unknown Blend / - 11/14 Magnesium Hx Tablets 400mg Unknown / - 11/04 Nexium / Hx Unknown / - 11/14 Doxylamine Hx Unknown Succinate /0000 - 08/15 Tramadol HCL /00 Hx Tablets 50mg Unknown / - 11/04 [...] Administered Injection Christopher Injection 2 Or 2017 Santiaog Viera MD More Allergy 12/09/ Administered Injection [...] Procedures Date CPT Code Description Status 04/14/2018 36799 Therapeutic, Prophylactic Or Diagnostic Injection Completed Subq/Im 04/09/2018 00800 Allergy Injection 2 Or More Completed 03/31/2018 34824 Allergy Injection Single Completed 03/24/2018 55481 Allergy Injection 2 Or More Completed 03/19/2018 78295 Allergy Injection 2 Or More Completed 03/03/2018 94791 Allergy Injection 2 Or More Completed 02/24/2018 69421 Allergy Injection 2 Or More Completed 02/17/2018 52885 Allergy Injection 2 Or More Completed 02/10/2018 55997 Allergy Injection 2 Or More Completed 01/27/2018 27812 Allergy Injection 2 Or More Completed 01/20/2018 41191 Allergy Injection 2 Or More Completed 01/06/2018 64269 Allergy Injection 2 Or More Completed 12/30/2017 04954 Allergy Injection 2 Or More Completed 12/23/2017 24423 Allergy Injection 2 Or More Completed 12/16/2017 29582 Allergy Injection 2 Or More Completed 12/09/2017 46052 Allergy Injection 2 Or More Completed 12/04/2017 77283 Allergy Injection 2 Or More Completed 11/25/2017 09517 Allergy Injection 2 Or More Completed 11/18/2017 58286 Allergy Injection 2 Or More Completed 11/13/2017 47576 Allergy Injection 2 Or More Completed 11/10/2017 89474 Allergy Antigens Single Or Multiple Completed 04/15/2017 03316 Therapeutic, Prophylactic Or Diagnostic Injection Completed Subq/Im 11/14/2016 40500 Nitric Oxide Gas Determination Completed 11/14/2016 78586 Bronchodilation Responsiveness Spirometry Pre/Post Completed Bronchodil Adm 07/11/2016 18153 Education/Training PT Self-Management Each 30Minutes Completed Indiv PT 06/26/2016 30354 Allergy Tests Percutaneous W/ Allergenic Extracts Completed Encounters Type Date Location Provider CPT E/M Dx Office Visit 04/16/2018 1:00p KATHRYN Rodriguez 60459 L50.0 J30.89 J30.1 Office Visit 04/14/2018 2:00[place] [address] T78.3xxD Office Visit 03/10/2018 11:00a KATHRYN Rodriguez 21824 J30.1 J30.89 L50.0 Office Visit 01/02/2018 1:00p KATHRYN Moore 85470 L50.0 Office Visit 11/04/2017 10:00a GAVIN Blum 85573 J30.1 J30.89 R09.82 Office Visit 05/06/2017 8:45[place] [address] J30.1 J30.89 Office Visit 04/15/2017 4:15p [place] [address] J30.1 J30.89 Office Visit 11/14/2016 10:30a Tony GAVIN King 53905 J30.1 J30.89 R09.82 R05 Office Visit 08/15/2016 11:00a [facility] [address] R05 J30.1 J30.89 Office Visit 07/11/2016 2:00p [place] [facility] 14338 R05 J30.1 J30.89 Office Visit 06/26/2016 10:30[place] [address] J30.1 J30.89 Plan of Care Future Appointment(s):05/05/2018 8:45 am - [facility]2018 - Kevin Viera MDL50.0 Allergic urticariaNew Medication:Medrol 4 mgCetirizine HCL 10 mgZ91.018 Allergy to other foods
[2018-05-20 17:33] VITALS: BP 124/77
--- NOTE | 2018-05-20 17:48 | UC ---
Lower Extremity/Ankle HPI - HPI Summary HPI Summary: flipped a table at home out of anger, and developed pain in the left foot, admits to feeling depressed without suicidal thoughts - History of Current Complaint Chief Complaint: UCLowerExtremity Stated Complaint: RT BIG TOE INJ Time Seen by Provider: 05/20/18 17:27 Onset/Duration: Sudden Onset Severity Initially: Moderate Severity Currently: Moderate Pain Intensity: 6 Aggravating Factor(s): Standing, Ambulation Alleviating Factor(s): Rest Able to Bear Weight: Yes - Risk Factors Gout Risk Factors: Negative DVT Risk Factors: Negative Septic Arthritis Risk Factor: Negative - Allergies/Home Medications Allergies/Adverse Reactions: Allergies Allergy/AdvReac Type Severity Reaction Status Date / Time amoxicillin [From Augmentin] Allergy Itching Verified 05/20/18 17:24 clavulanic acid Allergy Itching Verified 05/20/18 17:24 [From Augmentin] Penicillins Allergy Hives Verified 05/20/18 17:24 "ALL ANTIBIOTICS" Allergy See Comment Uncoded 05/20/18 17:24 floxacin Allergy Rash Uncoded 05/20/18 17:24 Home Medications: Home Medications Furosemide TAB* [Lasix TAB*] 20 mg DAILY 05/20/18 [History Confirmed 05/20/18] Lisinopril TAB* [Prinivil TAB 10 MG*] 20 mg DAILY 05/20/18 [History Confirmed ] QUEtiapine TAB* [Seroquel 100 MG *] 1 tab QPM 05/20/18 [History Confirmed ] diPHENhydraMINE PO* [Benadryl PO 50 MG CAP*] 50 mg TID 05/20/18 [History Confirmed 05/20/18] PMH/Surg Hx/FS Hx/Imm Hx Previously Healthy: Yes - s/p bariatric surgery Psychological History: Depression - Surgical History Surgical History: Yes Surgery Procedure, Year, and Place: BARIACTRIC SURGERY 03/24. CHOLYCYSTECTOMY . SINUS SURGERY. CARPAL TUNNEL REPAIR BILT. BACK SURGERY 1992. CATARAC SURGERY. TONSILLECTOMY. RIGHT KNEE AUG 2017. LEFT KNEE JANUARY 2018 - Family History Known Family History: Positive: Cardiac Disease, Hypertension - Social History Alcohol Use: None Substance Use Type: None Smoking Status (MU): Never Smoked Tobacco - Immunization History Most Recent Tetanus Shot: UTD Review of Systems Constitutional: Negative Skin: Negative Eyes: Negative ENT: Negative Respiratory: Negative Cardiovascular: Negative Gastrointestinal: Negative Genitourinary: Negative Motor: Negative Neurovascular: Negative Musculoskeletal: Other: - pain in the left foot Is Patient Immunocompromised?: No All Other Systems Reviewed And Are Negative: Yes Physical Exam Triage Information Reviewed: Yes Appearance: Well-Appearing Vital Signs: Initial Vital Signs Temp 36.4 C 05/20/18 17:26 Pulse 84 05/20/18 17:26 Resp 16 05/20/18 17:26 BP 124/77 05/20/18 17:26 Pulse Ox 100 05/20/18 17:26 Vital Signs Reviewed: Yes Eye Exam: Normal Eyes: Positive: Conjunctiva Clear ENT Exam: Normal ENT: Positive: Normal ENT inspection Dental Exam: Normal Neck exam: Normal Neck: Positive: Supple Respiratory Exam: Normal Respiratory: Positive: Chest non-tender Cardiovascular Exam: Normal Cardiovascular: Positive: RRR Abdominal Exam: Normal Abdomen Description: Positive: Nontender Bowel Sounds: Positive: Present Musculoskeletal Exam: Other - pain and swelling 1st metatarsal, without deformity Neurological Exam: Normal Skin Exam: Normal Lower Extremity Course/Dx - Differential Dx/Diagnosis Provider Diagnoses: osteopenia, without fracture, sprain of foot following trauma Discharge - Sign-Out/Discharge Documenting (check all that apply): Patient Departure All imaging exams completed and their final reports reviewed: Yes - xrays negative - Discharge Plan Condition: Good Disposition: HOME Patient Education Materials: Foot Sprain (ED) Referrals: Rob Aguilar MD [Primary Care Provider] - 1 Week Additional Instructions: cam boot - Billing Disposition and Condition Condition: GOOD Disposition: Home
--- NOTE | 2018-05-20 17:57 | RAD ---
Indication: Right foot pain. 3 views of the right foot demonstrates no evidence of fracture although diffuse osteopenia is noted. No other bone or joint abnormality is noted. IMPRESSION: Diffuse osteopenia without fracture.
== END 2018-05-20 18:22 | disposition home or self-care (01) ==
LOC: UCCORT 16:21
DX: M85.871 Other specified disorders of bone density and structure, right ankle and foot (principal); S93.601A Unspecified sprain of right foot, initial encounter; W22.03XA Walked into furniture, initial encounter; Y93.89 Activity, other specified; Y92.9 Unspecified place or not applicable; Z88.8 Allergy status to other drugs, medicaments and biological substances; Z88.0 Allergy status to penicillin; Z88.1 Allergy status to other antibiotic agents
CPT/HCPCS: 99212; G0463

== ENCOUNTER 2018-06-04 16:10 | Emergency (ER) | payer MEDICARE, OTHER ==
[2018-06-04 16:23] VITALS: BP 125/69
--- NOTE | 2018-06-04 18:07 | UC ---
Back Pain HPI - HPI Summary HPI Summary: The patient is a 63-year-old female with chronic low back pain and left leg sciatica. Says stems from a Worker's Comp. injury. Her Worker's Comp. case is still open. He states that she has noticed Progressively worsening pain with left sciatica over the past 4-6 months. She has had a history of a spinal fusion. She denies any bowel or bladder dysfunction. She does not desire any narcotic pain medicines. - History of Current Complaint Chief Complaint: UCBackPain Stated Complaint: BACK PAIN Time Seen by Provider: 06/04/18 17:54 Hx Obtained From: Patient Onset/Duration: Gradual Onset, Lasting Weeks, Worse Since Timing: Constant Severity Initially: Severe Severity Currently: Severe Pain Intensity: 8 Pain Scale Used: 0-10 Numeric - Times weeks to months. Back Pain: Is Diffuse, Radiates To - left leg Character: Aching, Throbbing, Stiffness Aggravating Factor(s): Movement, Bending Alleviating Factor(s): Rest - Allergies/Home Medications Allergies/Adverse Reactions: Allergies Allergy/AdvReac Type Severity Reaction Status Date / Time codeine Allergy Severe Hives Verified 06/04/18 16:26 amoxicillin [From Augmentin] Allergy Itching Verified 06/04/18 16:24 clavulanic acid Allergy Itching Verified 06/04/18 16:24 [From Augmentin] Penicillins Allergy Hives Verified 06/04/18 16:24 "ALL ANTIBIOTICS" Allergy See Comment Uncoded 05/20/18 17:24 floxacin Allergy Rash Uncoded 05/20/18 17:24 Home Medications: Home Medications Bariatric Fusion Vitamins 06/04/18 [History] PMH/Surg Hx/FS Hx/Imm Hx Endocrine History: Diabetes Cardiovascular History: Hypertension GI/ History: Gastroesophageal Reflux - Surgical History Surgical History: Yes Surgery Procedure, Year, and Place: BARIACTRIC SURGERY 03/24. CHOLYCYSTECTOMY . SINUS SURGERY. CARPAL TUNNEL REPAIR BILT. BACK SURGERY 1992. CATARAC SURGERY. TONSILLECTOMY. RIGHT KNEE AUG 2017. LEFT KNEE JANUARY 2018 - Family History Known Family History: Positive: Cardiac Disease, Hypertension - Social History Alcohol Use: None Substance Use Type: None Smoking Status (MU): Never Smoked Tobacco - Immunization History Most Recent Tetanus Shot: UTD Review of Systems Constitutional: Negative Skin: Negative Eyes: Negative ENT: Negative Respiratory: Negative Cardiovascular: Negative Gastrointestinal: Negative Genitourinary: Negative Motor: Negative Neurovascular: Negative Musculoskeletal: Arthralgia, Myalgia Neurological: Negative Psychological: Negative All Other Systems Reviewed And Are Negative: Yes Physical Exam Triage Information Reviewed: Yes Appearance: Well-Appearing, No Pain Distress, Well-Nourished Vital Signs: Initial Vital Signs Temp 98 F 06/04/18 16:17 Pulse 88 06/04/18 16:17 Resp 18 06/04/18 16:17 BP 125/69 06/04/18 16:17 Pulse Ox 100 06/04/18 16:17 Vital Signs Reviewed: Yes Eyes: Positive: Conjunctiva Clear ENT: Positive: Hearing grossly normal. Negative: Nasal congestion, Nasal drainage, Trismus, Muffled voice, Hoarse voice Neck: Positive: Supple, Nontender, No Lymphadenopathy Respiratory: Positive: Lungs clear, Normal breath sounds, No respiratory distress, No accessory muscle use Cardiovascular: Positive: RRR, No Murmur Musculoskeletal: Positive: ROM Intact, Edema @ - pretibial Neurological Exam: Other - slow wide based gait/ (-) SLR Neurological: Positive: Alert Psychological Exam: Normal Skin Exam: Normal Back Pain Course/Dx - Differential Dx/Diagnosis Provider Diagnoses: exacerbation of chronic low back pain and left sciatica Discharge - Sign-Out/Discharge Documenting (check all that apply): Patient Departure All imaging exams completed and their final reports reviewed: No Studies - Discharge Plan Condition: Stable Disposition: HOME Prescriptions: Cyclobenzaprine TAB* [Flexeril TAB*] 5 mg PO TID PRN #21 tab PRN Reason: Spasms Patient Education Materials: Sciatica (ED) Referrals: Abdulkadir Mosqueda MD [Medical Doctor] - As Soon As Possible Additional Instructions: PT consult - Billing Disposition and Condition Condition: STABLE Disposition: Home
== END 2018-06-04 18:15 | disposition home or self-care (01) ==
LOC: UCEAST 16:10
DX: M54.42 Lumbago with sciatica, left side (principal); Z98.84 Bariatric surgery status; Z88.1 Allergy status to other antibiotic agents; Z88.5 Allergy status to narcotic agent; Z88.0 Allergy status to penicillin
CPT/HCPCS: 99211; G0463

== ENCOUNTER 2018-06-23 16:32 | Emergency (ER) | payer OTHER, MEDICARE ==
--- OUTSIDE RECORDS SUMMARY | 2018-06-23 16:47 | XMS REPORT | Continuity of Care Document ---
:1955 External Reference #:[id number] Author Name Niki Shah Care Team Providers Name Role Phone Mary Yancey FNP Care Team Information Button Sewer Hand Unavailable Rob Aguilar MD Primary Care Physician Unavailable Payers Type Date Identification Numbers Payment Provider Subscriber Policy Number: [id number] Medicare Melly Jarrett PayID: [id number] [address] [place] [address] Policy Number: [id number] [employer] Melly Jarrett PayID: [id number] [address] [place] [address] Advance Directives Description No Information Available Problems [...] Form Strength Qnty SIG Indications Ordering Provider Furosemide / Active Tablets 40mg 1 by Unknown 0000 mouth every day Azithromycin 05/07/ Hx Tablets 250mg 6tabs 2 by Bam 2017 - mouth Scooter, 06/14/ every day M.D. 2017 1, 1 by mouth every day 2-5 Prednisone 08/07/ Hx Tablets 10mg 3tabs 1 by Bam 2016 - mouth Scooter, 05/06/ every M.D. 2018 morning Azithromycin 07/21/ Hx Tablets 250mg 6tabs 2 pills x Bam, 2016 - 1 day Scooter, 08/07/ then 1 M.D. 2016 every day for 4 days Azithromycin 01/21/ Hx Tablets 500mg 5tabs 1 by Bam 2017 - mouth Scooter, 03/30/ every day M.D. 2016 Dexamethasone 01/21/ Hx Tablets 4mg 3tabs one tab Bam, 2016 - daily for Scooter, 03/30/ 3 days M.D. 2016 Percocet 01/16/ Hx Tablets 5-325mg 20tab 1-2 by Bam, 2017 - s mouth Scooter, 01/20/ four M.D. 2017 times a day as needed for pain Augmentin 10/16/ Hx Tablets 875-125mg 20tab twice a Bam, 2017 - s day 1 Scooter, 11/06/ week M.D. 2016 Azithromycin 09/09/ Hx Tablets 250mg 6tabs 2 pills x Bam, 2016 - 1 day Scooter, 09/29/ then 1 M.D. 2016 every day for 4 days Zaleplon 09/09/ Hx Capsules 5mg 1caps 1 by Bam, 2016 - mouth at [facility], 09/29/ bedtime M.D. 2016 Fluticasone 03/01/ Hx Suspension 50mcg/Act 1unit 2 sprays Bam, Propionate 2015 - s both Scooter, 08/06/ nostrils M.D. 2016 every day Amoxicillin 02/20/ Hx Tablets 875mg 14tab twice a Bam, 2016 - s day 1 Scooter, 03/12/ week M.D. 2016 Ipratropium 01/14/ Hx Solution 0.03% QS 2 sprays Bam, Higgins 2016 - each side [facility], 06/14/ nostril M.D. 2018 everyday 2 months Tizanidine HCL / Hx Capsules 2mg Unknown 0000 - 2017 Paroxetine HCL / Hx Tablets 40mg 1 by Unknown 0000 - mouth 06/14/ every day 2017 Cyclobenzaprine / Hx Tablets 10mg take 1 Unknown HCL 0000 - tablet by mouth 2018 every 8 hours as needed for muscle spasm(s) Lisinopril-Hydroc / Hx Tablets 20-12.5mg Unknown hlorothiazide - 2017 Potassium / Hx Capsules ER 10Meq Unknown Chloride ER - 2017 Calcium + D3 / Hx Tablets Unknown - 2017 Levocetirizine 00/ Hx Tablets 5mg 1 by Unknown Dihydrochloride 0000 - mouth day 2017 Qnasl / Hx Aerosol 80mcg/Act 1 spray Unknown 0000 - to both ils 2017 once daily. Verapamil HCL ER / Hx Caps ER 120mg 1 by Unknown 0000 - 24HR mouth 2017 Medrol / Hx Tablets as on the Unknown 0000 - pack 2017 Immunizations Description No Information Available Vital Signs Date Vital Result Comment 06/15/2018 11:43am Weight 217.00 lb Height 63 inches 5'3" BMI (Body Mass Index) 38.4 kg/m2 BP Systolic 122 mmHg BP Diastolic 78 mmHg Heart Rate 78 /min O2 % BldC Oximetry 97 % Body Temperature 98.2 F Pain Level 0 05/07/2018 3:13pm Weight 216.00 lb Height 63 [...] Oximetry 99 % Body Temperature 98.6 F [place] Score 0 03/13/2016 1:33pm Weight 303.00 lb [...] Information Available Procedures Date Code Description Status 05/07/2018 58092 Nasal Endoscopy, Diag. Completed 04/02/2018 94508 Nasal Endoscopy, Diag. Completed 01/16/2017 70223 Stereotactic Computer-Assisted, Cranial, Extradural Completed 01/16/2017 99166 Nasal/Sinus Endoscopy Surg/Sphen. Completed 01/16/2017 70869 Nasal/Sinus Endosc.W.Max.Antrost. Completed 01/16/2017 10108 Nasal/Sinus Endosc.Surg.W.Ethmoid Completed 01/16/2017 88707 Septoplasty Completed 01/16/2017 14785 Submucous Resect.Turb.Par Or Comp Completed 01/16/2017 62572 Anesthesia, Nose & Accessory Sinus Surgery Not Otherwise Completed Spec 10/16/2016 95354 Nasal Endoscopy, Diag. Completed 09/15/2016 21024 Sleep Staging 4Or More Para Completed 02/15/2016 60912 Fiberoptic Laryngoscopy,Diag. Completed 01/15/2016 63113 Fiberoptic Laryngoscopy,Diag. Completed Encounters Type Date Location Provider Dx Diagnosis Office Visit 05/07/2018 Main Office Scooter Kuhn M.D. J32.9 Chronic sinusitis, 3:15p unspecified J31.0 Chronic rhinitis Office Visit 04/02/2018 1:15p Main Office Scooter Kuhn M.D. J31.0 Chronic rhinitis J32.9 Chronic sinusitis, unspecified Office Visit 10/22/2017 11:15a Main Office Carol Bocanegra J34.2 Deviated nasal TIME MOTION ANALYST septum J34.3 Hypertrophy of nasal turbinates Office Visit 08/07/2017 1:00p Main Office Carol Nolen J01.80 Other acute AMBER Bocanegra sinusitis Office Visit 11/07/2016 9:45a Main Office Scooter Kuhn G47.33 Obstructive sleep M.D. apnea (adult) (pediatric) J32.9 Chronic sinusitis, unspecified J34.2 Deviated nasal septum J34.3 Hypertrophy of nasal turbinates Office Visit 10/30/2016 9:15a Main Office Kuhn, Scooter, G47.33 Obstructive sleep M.D. apnea (adult) (pediatric) J32.9 Chronic sinusitis, unspecified J34.2 Deviated nasal septum J34.3 Hypertrophy of nasal turbinates Office Visit 10/16/2016 9:00a Main Office Scooter Kuhn G47.33 Obstructive sleep M.D. apnea (adult) (pediatric) J32.9 Chronic sinusitis, unspecified J34.2 Deviated nasal septum Office Visit 09/30/2016 1:00p Main Office Carol Nolen G47.33 Obstructive sleep AMBER Bocanegra apnea (adult) (pediatric) Office Visit 09/09/2016 2:30p Main Office Carol Nolen G47.9 Sleep disorder, AMBER Bocanegra unspecified R09.82 Postnasal drip R06.83 Snoring Office Visit 03/13/2016 1:45p Main Office Carol Nolen J32.9 Chronic sinusitis, AMBER Bocanegra unspecified J34.2 Deviated nasal septum R09.82 Postnasal [...] unspecified Plan of Treatment 09/09/2016 - Carol Bocanegra NPG47.9 Sleep disorder, qwkyshmqvdfX22.82 Postnasal dripR06.83 SnoringNew Orders:PSG - Sleep Study, Scheduled: 09/15/16
[2018-06-23 17:11] VITALS: BP 142/69
--- NOTE | 2018-06-23 17:22 | UC ---
Dizzy HPI HPI Summary: 63 yo female presents with left chest pain radiating around to her left back since this morning - getting progressively worse. She feels dizzy and fatigued currently. She also tells me that last week she accidentally overdoses on tylenol and was in the ICU for a few days - got out of the hospital 1 week ago today. Currently she feels nauseous, but no vomiting. Denies fever, chills, cough, SOB, diarrhea, constipation, or dysuria. - History Of Current Complaint Chief Complaint: UCGeneralIllness Stated Complaint: LFT RIB/BACK AREA PAIN Time Seen by Provider: 06/23/18 17:11 Hx Obtained From: Patient Onset/Duration: Sudden Onset Severity Initially: Moderate Severity Currently: Moderate Pain Intensity: 8 Pain Scale Used: 0-10 Numeric - Allergies/Home Medications Allergies/Adverse Reactions: Allergies Allergy/AdvReac Type Severity Reaction Status Date / Time codeine Allergy Severe Hives Verified 06/23/18 16:57 aspirin Allergy Unknown AVOIDS Verified 06/23/18 17:00 SINCE BARIATRIC SURGERY NSAIDS (Non-Steroidal Allergy Unknown AVOIDS Verified 06/23/18 17:00 Anti-Inflamma SINCE BARIATRIC SURGERY amoxicillin [From Augmentin] Allergy Itching Verified 06/23/18 16:57 clavulanic acid Allergy Itching Verified 06/23/18 16:57 [From Augmentin] Penicillins Allergy Hives Verified 06/23/18 16:57 acetaminophen [From Tylenol] AdvReac Unknown PT STATES Verified 06/23/18 17:00 SHE OVER DOSED ON TYLENOL LAST WEEK 06/15/18 "ALL ANTIBIOTICS" Allergy See Comment Uncoded 06/23/18 16:57 floxacin Allergy Rash Uncoded 06/23/18 16:57 Home Medications: Home Medications Amitriptyline TAB* [Elavil TAB*] 10 mg PO BEDTIME 06/23/18 [History Confirmed ] Anxiety Med 1 tab PO BEDTIME 06/23/18 [History] FLUoxetine CAP* [PROzac CAP*] 20 mg PO DAILY 06/23/18 [History Confirmed ] PMH/Surg Hx/FS Hx/Imm Hx Cardiovascular History: Cardiac Disease, Hypertension Psychological History: Anxiety, Depression - Surgical History Surgical History: Yes Surgery Procedure, Year, and Place: BARIACTRIC SURGERY 03/24. CHOLYCYSTECTOMY . SINUS SURGERY. CARPAL TUNNEL REPAIR BILT. BACK SURGERY 1992. CATARAC SURGERY. TONSILLECTOMY. RIGHT KNEE AUG 2017. LEFT KNEE JANUARY 2018 - Family History Known Family History: Positive: Cardiac Disease, Hypertension - Social History Occupation: Retired Lives: With Family Alcohol Use: None Substance Use Type: None Smoking Status (MU): Never Smoked Tobacco - Immunization History Most Recent Tetanus Shot: UTD Review of Systems Constitutional: Fatigue Skin: Negative Eyes: Negative ENT: Negative Respiratory: Negative Cardiovascular: Chest Pain Gastrointestinal: Nausea Genitourinary: Negative Neurological: Negative Psychological: Negative All Other Systems Reviewed And Are Negative: Yes Physical Exam - Summary Physical Exam Summary: GENERAL: NAD. WDWN. No pain distress. SKIN: No rashes, sores, lesions, or open wounds. NECK: Supple. Nontender. No lymphadenopathy. CHEST: CTAB. No r/r/w. No accessory muscle use. Breathing comfortably and in no distress. CV: RRR. Without m/r/g. Pulses intact. Cap refill <2seconds ABDOMEN: Soft. NTTP. No distention or guarding. No CVA tenderness. Bowel sounds present NEURO: Alert. PSYCH: Age appropriate behavior. Triage Information Reviewed: Yes Vital Signs: Initial Vital Signs Temp 98.4 F 06/23/18 17:04 Pulse 67 06/23/18 17:04 Resp 20 06/23/18 17:04 BP 142/69 06/23/18 17:04 Pulse Ox 100 06/23/18 17:04 Vital Signs Reviewed: Yes Dizzy Course/Dx - Course Course Of Treatment: EKG with NSR 70bpm. No ST changes as read by Dr. Weinberg. Given her recent hospitalization and current chest pain with dizziness and fatigued - I have advised the pt to be further evaluated in the ED. She was agreeable to this and declined ambulance transfer - her will drive her. - Differential Dx/Diagnosis Provider Diagnoses: Chest pain. fatigue. dizziness Discharge - Sign-Out/Discharge Documenting (check all that apply): Patient Departure All imaging exams completed and their final reports reviewed: No Studies - Discharge Plan Condition: Stable Disposition: HOME-RECOMMEND TO ED Referrals: No Primary Care Phys,NOPCP [Medical Doctor] - Additional Instructions: Please go to the ER for further evaluation of your chest pain - Billing Disposition and Condition Condition: STABLE Disposition: Home-Recommend to ED - Attestation Statements Provider Attestation: I was available for consult. This patient was seen by the JOSE. The patient was not presented to, seen by, or examined by me. -Marilynn
== END 2018-06-23 17:48 | disposition home health service (06) ==
LOC: UCCORT 16:32
DX: R07.9 Chest pain, unspecified (principal); R53.83 Other fatigue; R42 Dizziness and giddiness; I11.9 Hypertensive heart disease without heart failure; F41.9 Anxiety disorder, unspecified; F32.9 Major depressive disorder, single episode, unspecified; Z98.84 Bariatric surgery status; Z88.5 Allergy status to narcotic agent; Z88.1 Allergy status to other antibiotic agents; Z88.0 Allergy status to penicillin; Z88.6 Allergy status to analgesic agent
CPT/HCPCS: 93005; 99212; G0463

== ENCOUNTER 2018-11-05 07:30 | Inpatient (IN) | payer OTHER ==
[2018-11-11] MEDS ORDERED: Buffered Lidocaine 1% SYRIN* 1 ML/SYRINGE INTRADERM ONE (14:25)
[2018-11-12] MEDS ORDERED: Vancomycin(*) 1,250 MG in NS 0.9% 250 ML* 250 ML IVPB SCH ×2
--- OUTSIDE RECORDS SUMMARY | 2018-11-12 05:50 | XMS REPORT | Continuity of Care Document ---
:1955 External Reference #:[id number] Author Name Umu Lopez Care Team Providers Name Role Phone Rob Aguilar MD Care Team Information [employer] Unavailable Rob Aguilar MD Primary Care Physician Unavailable Payers Date Identification Numbers Payment Provider Subscriber Policy Number: [id number] [employer] [place] Melly Jarrett PayID: [id number] [address] [place] [address] Policy Number: [id number] [facility] Melly Jarrett PayID: [id number] [address] [address] [place] [address] Advance Directives Description No Information Available Problems Date Description Provider Status Onset: 06/26/2016 [...] to other foods Kevin Viera MD Active Onset: 09/10/2018 Idiopathic urticaria KATHRYN Brown Active Family History Description No Information Available Social History Type Date Description Comments Sex Unknown Smoke-Free Home is smoke-free Pets several cats Tobacco Use Start: Unknown Never Smoked Cigarettes Smoking Status Reviewed: 10/08/18 Never Smoked Cigarettes Tobacco Use Start: Unknown Patient has never smoked Allergies, Adverse Reactions, Alerts Date Description Reaction Status Severity Comments 06/26/2016 Floxin Active 05/06/2017 Amoxicillin Urticaria Active 11/17/2017 Montelukast Active 01/20/2018 Penicillin Active hives all over 09/10/2018 Hydrocodone Active 09/10/2018 Zofran Active 09/10/2018 Oxycodone Active Medications Medication Date Status Form Strength Qnty SIG Indications Ordering Provider Desloratadine 10/07 Active Tablets 5mg 30tab take one L50.1 Christopher /2018 s tablet by Santiago Viera MD mouth daily in the morning. Levocetirizine 10/07 Active Tablets 5mg 30tab take one L50.1 Christopher Dihydrochloride s tablet by Santiago Viera MD mouth daily at bedtime Prednisone 09/22 Active Tablets 5mg 36tab 6 tablets s (30 mg) GAVIN Barnhart by mouth twice a day x 3 days Cetirizine HCL 04/29 Active Tablets 10mg 30tab take one L50.0 oph s tablet by Santiago Viera MD mouth every day at bedtime Benadryl 04/16 Active Tablets 25mg 90tab Take 2 L50.0 s tabs Santiago Viera MD every 6 hours as needed. Epinephrine 01/02 Active Solution 0.3mg/0.3 1unit One dose L50.0 Auto-Injec ML s injected Santiago Viera MD t into lateral side of thigh. Repeat dose if needed after 5-15 minutes. Paroxetine HCL Active Tablets 40mg Niziol, Rob Gann MD Trazodone HCL Active Tablets 50mg Unknown /0000 Furosemide Active Tablets 40mg Unknown /0000 Zolpidem Active Tablets 10mg Unknown Tartrate Eq Omeprazole Active Capsules 20mg Unknown Magnesium DR Verapamil HCL Active Tablets 40mg two per Unknown /0000 day Bariatric Fusion Active Chewtabs Unknown / Prednisone 09/10 Hx Tablets 10mg 24tab Take 4 L50.1 oph s tablets Santiago Viera MD - for 7 10/07 days. Take 3 tablets for 2 days. Take 2 tablets for 2 days. Take 1 tablet for 2 days.Take with food. Medrol 04/29 Hx TBPK 4mg 21uni take as L50.0 ts directed AMBER Caruso - 09/10 Medrol 04/16 Hx Tablets 4mg 15tab take 5 L50.0 s tablets Santiago Viera MD - day 1, 04/14 take tabs day 2, take 3 tabs day 3, take 2 tabs day 4. then take 1 tab on day 5. Prednisone 02/03 Hx Tablets 10mg 24tab take 3 s tablets Santiago Viera MD - by mouth 04/14 twice a day for 4 days. take with food. Auvi-Q 02/03 Hx Solution 0.3mg/0.3 4unit use as Auto-Injec ML s directed Santiago Viera MD - t 09/10 Medrol 01/02 Hx Tablets 4mg 15tab take 5 L50.0 s tablets Santiago Viera MD - day 1, 04/14 take tabs day 2, take 3 tabs day 3, take 2 tabs day 4. then take 1 tab on day 5. Julita Allergy 01/02 Hx Tablets 180mg 30tab Take one L50.0 s tab by Santiago Viera MD - mouth 09/10 daily in the morning. Singulair 11/04 Hx Chewtabs 5mg 60uni Chew 2 J30.1 ts tablets Santiago Viera MD - by mouth 11/12 daily in the evening. Nasonex 11/04 Hx Suspension 50mcg/Act 17gm [place] 2 J30.1 sprays in Santiago Viera MD - each 09/10 nostr by intranasa l route once daily. Medrol 05/06 Hx Tablets 4mg 15tab take 5 s tablets Santiago Viera MD - day , 11/04 take tabs day 2, take 3 tabs day 3, take 2 tabs day 4. then take 1 tab on day 5. Qnasl 06/26 Hx Aerosol 80mcg/Act 1unit 2 puffs J30.1 s each Santiago Viera MD - nostril 11/14 every day /2017 Xyzal 06/26 Hx Tablets 5mg 30tab 1 tab by J30.1 clifford Viera MD - every day 11/04 as needed Bupropion HCL ER 00 Hx Tablets ER 150mg Niziol, (SR) /0000 12HR Seymour Olvera MD 11/14 Potassium Hx Tablets ER 10Meq Niziol, Chloride ER /0000 Seymour Olvera MD 08/15 Verapamil HCL Hx Tablets 120mg Niziol, /0000 Seymour Olvera MD 09/10 Paroxetine HCL Hx Tablets 40mg Niziol, /0000 Seymour Olvera MD 08/15 Lisinopril Hx Tablets 2.5mg Unknown - 09/10 Meloxicam Hx Tablets 15mg 1 x a day Unknown /0000 as needed - 08/15 Lasix Hx Tablets 40mg Unknown - 09/10 Hair/Skin/Nails Hx Unknown / - 11/14 Super B Complex Hx Unknown Maxi / - 11/04 Flax Seed Oil / Hx Unknown / - 09/17 Womens Hx Unknown Multivitamin /0000 Plus - 11/04 Calcium 600+D3 Hx Tablets 600-800mg Unknown / -11/04 Folic Acid / Hx Unknown / - 11/04 Vitamin E Blend Hx Capsules 400Unit Unknown / - 11/14 Magnesium / Hx Tablets 400mg Unknown / - 11/04 Nexium / Hx Unknown / - 11/14 Doxylamine 00/ Hx Unknown Succinate / - 08/15 Tramadol HCL 00/00 Hx Tablets 50mg Unknown / - 11/04 Furosemide /00 Hx Tablets 40mg Unknown / - 11/14 Verapamil HCL ER 00/00 Hx Tablets ER 120mg Unknown / - 11/14 Doxycycline /00 Hx Capsules 100mg one Unknown Hyclate /0000 tablet by - mouth 11/04 once a /2018 day Omeprazole Hx Capsules 40mg Niziol, /0000 Seymour Lantigua MD 09/10 Buspirone HCL Hx Tablets 10mg 1 po bid - 09/10 Bactrim DS Hx Tablets 800-160mg twice a day for - 14 days 12/07 Hydroxyzine HCL Hx Tablets 25mg take one Unknown tablet by - mouth 09/10 6hrs prn Medications Administered in Office Medication Date Status Form Strength Qnty SIG Indications Ordering Provider Injection 10/20/ Administered Injection Christopher Omalizumab 2018 Santiago Viera MD MG Therapeutic, 10/20/ Administered Injection Christopher Prophylactic 2018 Santiago Viera MD Or Diagnostic Injection Subq/Im Injection 09/22/ Administered Injection Christopher Omalizumab 2018 Santiago Viera MD MG Therapeutic, 09/22/ Administered Injection Christopher Prophylactic 2018 Santiago Viera MD Or Diagnostic Injection Subq/Im Injection 06/11/ Administered Injection Christopher Omalizumab 2017 Santiago Viera MD MG Therapeutic, 06/11/ Administered Injection Christopher Prophylactic 2017 Santiago Viera MD Or Diagnostic Injection Subq/Im Injection 05/19/ Administered Injection Christopher Omalizumab 5 2017 Santiago Viera MD MG Therapeutic, 05/19/ Administered Injection Christopher Prophylactic 2017 Santiago Viera MD Or Diagnostic Injection Subq/Im Benadryl (To 04/14/ Administered Injection Christopher 50 MG) 2017 Santiago Viera MD Celestone (6 04/14/ Administered Injection Christopher MG) 2017 Santiago [...] Or 2017 Santiago Viera MD More Celestone (6 04/15/ Administered Injection Christopher MG) 2016 Santiago Viera MD Therapeutic, 04/15/ Administered Injection Christopher Prophylactic 2016 Santiago Viera MD Or Diagnostic Injection Subq/Im Immunizations Description No Information Available Vital Signs Date Vital Result Comment 10/20/2018 9:23am BP Systolic 118 mmHg BP Diastolic 70 mmHg Height 63 inches 5'3" Weight 200.00 lb BMI (Body Mass Index) 35.4 kg/m2 Heart Rate 78 /min Respiratory Rate 18 /min O2 % BldC Oximetry 99 % 10/07/2018 11:33am BP Systolic 191 mmHg BP Diastolic 92 mmHg Height 63 inches 5'3" Weight 200.00 lb BMI (Body Mass Index) 35.4 kg/m2 Heart Rate 66 /min Respiratory Rate 16 /min Body Temperature 98.6 F O2 % BldC Oximetry 98 % 09/17/2018 9:27am BP Systolic 150 mmHg BP Diastolic 80 mmHg Height 63 inches 5'3" Weight 200.00 lb BMI (Body Mass Index) 35.4 kg/m2 Heart Rate 67 /min Respiratory Rate 18 /min O2 % BldC Oximetry 99 % 09/10/2018 9:45am BP Systolic 128 mmHg BP Diastolic 67 mmHg Height 63 inches 5'3" Weight 207.00 lb BMI (Body Mass Index) 36.7 kg/m2 Heart Rate 76 /min Respiratory Rate 20 /min Body Temperature 98.3 F O2 % BldC Oximetry 96 % 05/05/2018 8:45am BP Systolic 144 mmHg BP Diastolic 86 mmHg Height 63 inches 5'3" Weight 210.00 lb BMI (Body Mass Index) 37.2 kg/m2 Heart Rate 78 /min Respiratory Rate 18 /min Body Temperature 95.6 F O2 % BldC Oximetry 99 % 04/29/2018 10:34am BP Systolic 142 mmHg BP Diastolic 86 mmHg Height 63 inches 5'3" Weight 210.00 lb BMI (Body Mass Index) 37.2 kg/m2 Heart Rate 90 /min Respiratory Rate 18 /min Body Temperature 98.0 F O2 % BldC Oximetry 98 % 04/16/2018 1:06pm BP Systolic 132 mmHg BP Diastolic 70 mmHg Height 63 inches 5'3" Weight 211.00 lb BMI (Body Mass Index) 37.4 kg/m2 Heart Rate 72 /min Respiratory Rate 16 /min Body Temperature 97.9 F O2 % BldC Oximetry 98 % 04/14/2018 1:54pm BP Systolic 112 mmHg BP Diastolic 68 mmHg Height 63 inches 5'3" Weight 211.00 lb BMI (Body Mass Index) 37.4 kg/m2 Heart Rate 83 /min Respiratory Rate 18 /min Body Temperature 98.7 F O2 % BldC Oximetry 94 % 03/10/2018 11:00am BP Systolic 118 mmHg BP Diastolic 72 mmHg Height 63 inches 5'3" Heart Rate 78 /min Body Temperature 97.8 F O2 % BldC Oximetry 98 % 01/02/2018 12:59pm BP Systolic 126 mmHg BP Diastolic 72 mmHg Height 63 inches 5'3" Weight 219.00 lb BMI (Body Mass Index) 38.8 kg/m2 Heart Rate 84 /min Respiratory Rate 18 /min Body Temperature 98.0 F O2 % BldC Oximetry 99 % 11/04/2017 9:52am BP Systolic 126 mmHg BP Diastolic 78 mmHg Height 63 inches 5'3" Weight 230.00 lb BMI (Body Mass Index) 40.7 kg/m2 Heart Rate 88 /min Respiratory Rate 16 /min Body Temperature 97.2 F O2 % BldC Oximetry 99 % 05/06/2017 8:54am Height 63 inches 5'3" Weight 325.00 lb BMI (Body Mass Index) 57.6 kg/m2 Heart Rate 75 /min Respiratory Rate 20 /min Body Temperature 97.9 F O2 % BldC Oximetry 99 % 11/14/2016 10:53am BP Systolic 138 mmHg BP Diastolic 84 mmHg Height 63 inches 5'3" Weight 325.00 lb BMI (Body Mass Index) 57.6 kg/m2 Heart Rate 77 /min Respiratory Rate 20 /min Body Temperature 97.7 F O2 % BldC Oximetry 93 % 08/15/2016 11:10am BP Systolic 140 mmHg BP Diastolic 90 mmHg Height 63 inches 5'3" Weight 325.00 lb BMI (Body Mass Index) 57.6 kg/m2 Heart Rate 93 /min Respiratory Rate 20 /min Body Temperature 97.2 F O2 % BldC Oximetry 98 % 07/11/2016 2:03pm Height 63 inches 5'3" Weight 334.00 lb BMI (Body Mass Index) 59.2 kg/m2 Heart Rate 98 /min Respiratory Rate 16 /min Body Temperature 98.6 F O2 % BldC Oximetry 95 % 06/26/2016 10:54am BP Systolic 134 mmHg BP Diastolic 82 mmHg Height 63 inches 5'3" Weight 334.00 lb BMI (Body Mass Index) 59.2 kg/m2 Heart Rate 96 /min Respiratory Rate 16 /min Body Temperature 97.4 F O2 % BldC Oximetry 96 % Results Description No Information Available Procedures Date Code Description Status 10/20/2018 24625 Therapeutic, Prophylactic Or Diagnostic Injection Subq/Im Completed 09/22/2018 94610 Therapeutic, Prophylactic Or Diagnostic Injection Subq/Im Completed 09/17/2018 05850 Allergy Tests Percutaneous W/ Allergenic Extracts Completed 06/11/2018 90916 Therapeutic, Prophylactic Or Diagnostic Injection Subq/Im Completed 05/19/2018 68491 Therapeutic, Prophylactic Or Diagnostic Injection Subq/Im Completed 04/14/2018 80541 Therapeutic, Prophylactic Or Diagnostic Injection Subq/Im Completed 04/09/2018 68123 Allergy Injection 2 Or More Completed 03/31/2018 75152 Allergy Injection Single Completed 03/24/2018 67659 Allergy Injection 2 Or More Completed 03/19/2018 17391 Allergy Injection 2 Or More Completed 03/03/2018 71548 Allergy Injection 2 Or More Completed 02/24/2018 28113 Allergy Injection 2 Or More Completed 02/17/2018 10700 Allergy Injection 2 Or More Completed 02/10/2018 00428 Allergy Injection 2 Or More Completed 01/27/2018 22952 Allergy Injection 2 Or More Completed 01/20/2018 55437 Allergy Injection 2 Or More Completed 01/06/2018 31876 Allergy Injection 2 Or More Completed 12/30/2017 50189 Allergy Injection 2 Or More Completed 12/23/2017 66191 Allergy Injection 2 Or More Completed 12/16/2017 40296 Allergy Injection 2 Or More Completed 12/09/2017 51363 Allergy Injection 2 Or More Completed 12/04/2017 01896 Allergy Injection 2 Or More Completed 11/25/2017 20093 Allergy Injection 2 Or More Completed 11/18/2017 72198 Allergy Injection 2 Or More Completed 11/13/2017 88481 Allergy Injection 2 Or More Completed 11/10/2017 07826 Allergy Antigens Single Or Multiple Completed 04/15/2017 24590 Therapeutic, Prophylactic Or Diagnostic Injection Subq/Im Completed 11/14/2016 77698 Nitric Oxide Gas Determination Completed 11/14/2016 75092 Bronchodilation Responsiveness Spirometry Pre/Post Completed Bronchodil Adm 07/11/2016 06679 Education/Training PT Self-Management Each 30Minutes Indiv Completed PT 06/26/2016 71892 Allergy Tests Percutaneous W/ Allergenic Extracts Completed Encounters Type Date Location Provider Dx Diagnosis Office Visit 10/07/2018 Ana Sutherland L50.1 Idiopathic urticaria 11:30a GAVIN Mckay Office Visit 09/17/2018 KATHRYN Rodriguez L50.1 Idiopathic urticaria 9:30a L50.0 Allergic urticaria Z91.018 Allergy to other foods J30.89 Other allergic rhinitis Office Visit 09/10/2018 9:30a KATHRYN Rodriguez L50.1 Idiopathic urticaria L50.0 Allergic urticaria Z91.018 Allergy to other foods Office Visit 05/05/2018 8:45a Tony Viera L50.0 Allergic urticaria Z91.018 Allergy to other foods Office Visit 04/29/2018 10:30a Ana Viera L50.0 Allergic urticaria Z91.018 Allergy to other foods Office Visit 04/16/2018 1:00p KATHRYN Rodriguez L50.0 Allergic urticaria J30.89 Other allergic rhinitis J30.1 Allergic rhinitis due to pollen Office Visit 04/14/2018 2:00p Tony Henderson T78.3xxD Angioneurotic MD Maximiliano edema, subsequent encounter Office Visit 03/10/2018 11:00a KATHRYN Rodriguez J30.1 Allergic rhinitis due to pollen J30.89 Other allergic rhinitis L50.0 Allergic urticaria Office Visit 01/02/2018 1:00p KATHRYN Moore L50.0 Allergic urticaria Office Visit 11/04/2017 10:00a Tony Sutherland J30.1 Allergic rhinitis due Fenstermacher, to pollen RPA-C J30.89 Other allergic rhinitis R09.82 Postnasal drip Office Visit 05/06/2017 8:45a Mariella Brooks30.1 Allergic rhinitis MD due to pollen J30.89 Other allergic rhinitis Office Visit 04/15/2017 4:15p Mariella Brooks30.1 Allergic rhinitis MD due to pollen J30.89 Other allergic rhinitis Office Visit 11/14/2016 10:30a Tony Celestin STristan Fenstermacher, J30.1 Allergic RPA-C rhinitis due to pollen J30.89 Other allergic rhinitis R09.82 Postnasal drip R05 Cough Office Visit 08/15/2016 11:00a Tony Celestin STristan Fenstermacher, RPA-C R05 Cough J30.1 Allergic rhinitis due to pollen J30.89 Other allergic rhinitis Office Visit 07/11/2016 2:00p Tony Celestin STristan Fenstermacher, RPA-C R05 Cough J30.1 Allergic rhinitis due to pollen J30.89 Other allergic rhinitis Office Visit 06/26/2016 10:30a Mariella Puentes30.1 Allergic rhinitis MD due to pollen J30.89 Other allergic rhinitis Plan of Treatment Future Appointment(s):11/17/2018 8:45 am - Injection 1 at [facility]/09/2019 10 :00 am - KATHRYN Brown [facility]
--- OUTSIDE RECORDS SUMMARY | 2018-11-12 05:50 | XMS REPORT | Continuity of Care Document ---
:1955 External Reference #:[id number] Author Name Giuseppe Ochoa Care Team Providers Name Role Phone Rob Aguilar MD Primary Care Physician Unavailable Payers Date Identification Numbers Payment Provider Subscriber Policy Number: [id number] Medicare Melly Jarrett PayID: [id number] [address] [facility] [place] [address] Policy Number: [id number] [employer] Melly Jarrett Group Number: [id number] [address] [address] PayID: [id number] [place] [address] Effective: 2015 Policy Number: [id number] [facility] Medicare Solutions Melly Jarrett Expires: 2016 Group Number: [id number] [address] [address] PayID: [id number] [place] [address] Onset: 1989 Policy Number: [id number] [employer] Melly Jarrett Group Number: [id number] [address] Group Name: [id number] [place] [address] PayID: [id number] Expires: 2015 Policy Number: [id number] Medicare Melly Jarrett PayID: [id number] [address] [place] [address] Expires: 2015 Policy Number: [id number] [employer] Juan Jarrett Group Number: [id number] [address] PayID: [id number] [place] [address] Effective: 1989 Policy Number: [id number] [employer] Melly Jarrett Group Name: Workers' Compensation [address] [address] [place] [address] Advance Directives Description No Information Available Problems Date Description Provider Status Onset: 05/31/2015 Shoulder joint pain Massimo Smith M.D. Active Onset: 09/13/2015 Strain of muscle, fascia and tendon Massimo Smith M.D. Active of long head of biceps, right arm, subsequent encounter Onset: 10/10/2015 Lumbar spondylosis Ashu Gonzalez M.D. Active Onset: 10/10/2015 Arthrodesis status Ashu Gonzalez M.D. Active Onset: 03/16/2018 Lumbar radiculopathy Kendall Norris M.D. Active Family History Date Family Member(s) Observation Comments General Cancer Mother Hypertension Alzheimer's. Does not know father or his medical history. 4 children. Siblings 3 three 1/2 siblings (2 brothers, one of which has not spoken to in 40 years), 1 sister) reportedly healthy. 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 Aguilar 09/14/2018 Morphine Active 10/19/2018 Oxycodone Itching Active 10/19/2018 Hydrocodone Active Swelling 10/19/2018 Penicillin Hives Active 10/19/2018 Zofran Itching Active Medications Medication Date Status Form Strength Qnty SIG Indications Ordering Provider Zolpidem Tartrate / Active Tablets 10mg 1/2 to 1 Unknown 0000 tab by mouth every night at bedtime as needed Cetirizine HCL / Active Tablets 10mg 1 by mouth Unknown 0000 every day Trazodone HCL / Active Tablets 50mg 1 tablet Unknown 0000 at bedtime as needed Bariatric Fusion 00/ Active Chewtabs 2 bid Unknown 0000 Paroxetine HCL / Active Tablets 40mg 1 by mouth Unknown 0000 every day Furosemide 00/ Active Tablets 40mg 1 by mouth Unknown 0000 every day Omeprazole / Active Capsules 20mg 1 by mouth Unknown 0000 DR every day Levocetirizine / Active Tablets 5mg 1 every Unknown Dihydrochloride 0000 evening Verapamil HCL / Active Tablets 40mg 1 tab Unknown 0000 daily Hair Skin & Nails 07/26/ Hx Chewtabs 1 po qd Herberth S. 2014no, 01/30/ DO FAC 2016 Glucosamine 07/26/ Hx Capsules 2 po qd Herberth S. Chondroitin 2014no, DO [facility] 2016 Eszopiclone 05/31/ Hx Tablets 3mg 30tab 1 tab each Massimo 2014 night at [facility], 01/01/ bedtime by Andrew 2017 mouth as needed insomnia. Diltiazem HCL ER 05/31/ Hx Caps ER 300mg 30cap 1 by mouth Massimo 2014 - 24HR s every day Sarah, M.D. 2017 Meloxicam 05/31/ Hx Tablets 15mg 30tab once daily Massimo 2014 with food Sarah, M.D. 2017 Embeda 05/31/ Hx Capsules 30-1.2mg take 2 in Massimo 2014 - ER the Am Sarah, M.D. 2017 Furosemide 05/31/ Hx Tablets 40mg 90tab 1 by mouth Massimo 2014 clifford every day Sarah, M.D. 2014 Metoprolol 05/31/ Hx Tablets 25mg 180ta 1 by mouth Massimo Tartrate 2014 - twice a Sarah, 07/12/ day M.D. 2014 Oxycodone HCL ER 05/31/ Hx Tab ER 12H 10mg 100ta 1 tab by Massimo 2014 - Abuse-Det bs mouth Sarah, 07/10/ every 4-6 M.D. 2018 hours Paroxetine HCL 05/31/ Hx Tablets 20mg 30tab 1 by mouth Massimo 2014 s every day Sarah, M.D. 2017 Cyclobenzaprine 05/31/ Hx 10mg once at Massimo 2014 - bedtime Sarah, M.D. 2017 Esomeprazole 05/31/ Hx Capsules 40mg 30cap 1 by mouth Massimo Lopez - s every day Sarah 01/01/ Andrew 2016 Gabapentin 05/31/ Hx Capsules 300mg 120ca 3 by mouth Massimo 2015 - ps every Sarah, 01/01/ night at M.D. 2017 bedtime Montelukast 00/ Hx Tablets 10mg 1 by mouth Unknown Sodium 0000 - every day 2016 Calcium 600 + D / Hx Tablets 600-200mg 1 by mouth Unknown 0000 - -Unit every day 2016 Xanax / Hx Tablets 0.25mg one by Unknown 0000 - mouth up to three 2015 times daily as needed for anxiety Symbicort / Hx Aerosol 160-4.5mc unit puffs Unknown 0000 - g/Act twice a 2016 Zestoretic / Hx Tablets 20-12.5mg take one Unknown 0000 - tablet by 07/12/ mouth one 2015 time daily Prednisone /00/ Hx Tablets 10mg 30mg daily Unknown 0000 - for 1 , 20mg 2014 daily for 1 week, 10 mg daily for 1 week Furosemide 00/ Hx Tablets 20mg 1 po daily Unknown 0000 - 2018 Multivitamins 00/ Hx Capsules 1 by mouth Unknown 0000 - every day 2017 Flaxseed Oil / Hx Capsules 1000mg 1 by mouth Unknown 0000 - every day 2017 [place]-3 / Hx Capsules 450mg 1 po qd Unknown - 2016 Vitamin B12 / Hx 1000mcg 1 po qd Unknown - 2016 Biotin /00/ Hx Capsules 1000mcg 1 po qd Unknown 0000 - 2017 Folic Acid 00/ Hx Tablets 800mcg 1 by mouth Unknown 0000 - every day 2017 Bee Pollen 00/ Hx Capsules 550mg daily Unknown - 2016 Magnesium /00/ Hx Tablets 250mg 1 by mouth Unknown 0000 - every day 2016 Vitamin D3 00/ Hx Capsules 1000Unit 1 by mouth Unknown 0000 - every day 2016 Lisinopril-Hydroc / Hx Tablets 20-12.5mg 1 po bid Unknown hlorothiazide - 2016 Potassium /00/ Hx Tablets ER 10Meq 1 by mouth Unknown Chloride ER 0000 - every day 2014 Doxycycline /00/ Hx Capsules 100mg 1 po bid Niziol, Hyclate 0000 - for Rob, 01/30/ infection 2016 in legs OS-Keyur Calcium + 00/00/ Hx Tablets 500-200mg 1 tablet Unknown D3 0000 - -Unit daily 2017 Dexamethasone /00/ Hx Tablets 4mg 1 tabs by Unknown 0000 - mouth 01/01/ 2017 hours Levocetirizine 00/ Hx Tablets 5mg 1 by mouth Unknown Dihydrochloride 0000 - every day 2016 Lisinopril 00/ Hx Tablets 10mg 1 by mouth Unknown 0000 - every day 2017 Magnesium /00/ Hx Capsules 500mg once a day Unknown 0000 - 2017 Omeprazole 00/ Hx Capsules 40mg 1 by mouth Unknown 0000 - DR every day 2017 Tobramycin / Hx Solution 0.3% Unknown - 2016 Tramadol HCL 00/ Hx Tablets 50mg Unknown 0000 - 2018 Turmeric /00/ Hx Unknown 0000 - 2016 Verapamil HCL 00/ Hx Tablets 120mg 1 by mouth Unknown 0000 - daily 2017 Xyzal 00/ Hx Tablets 5mg 1 by mouth Unknown 0000 - every day 2017 Fluoxetine HCL 00/ Hx Capsules 20mg once daily Unknown (PMDD) 0000 - 2018 Prednisone /00/ Hx Tablets 10mg 2 bid Unknown - 2018 Medications Administered in Office Medication Date Status Form Strength Qnty SIG Indications Ordering Provider Celestone 3 mg Administered Injection Massimo and 3mg 016 Andrew Smith Inj, Administered Injection Keaton Quispe, 015 Ej, 0.1 MG Andrew, FACC, FASNC Inj, Administered Injection Herberth Sutherland Regadenoson, 015 Fields, DO 0.1 MG FACC Technetium TC Administered Injection Keaton Kuhn 99M 015 Shiraz Pagan M.D., CLARISSA, Per Unit Dose FASNC Up To 40 Millicuries Technetium TC Administered Injection Herberth S. 99M 015 DO Donnie Tetrofosmin, FACC Per Unit Dose Up To 40 Millicuries Depomedrol Administered Injection Massimo 80MG 015 Andrew Smith Immunizations Description No Information Available Vital Signs Date Vital Result Comment 10/26/2018 9:34am Height 63 inches 5'3" Weight 205.00 lb BP Systolic Sitting 158 mmHg BP Diastolic Sitting 60 mmHg Pain Level 10 BMI (Body Mass Index) 36.3 kg/m2 10/19/2018 9:19am Height 63 inches 5'3" Weight 198.00 lb Heart Rate 80 /min BP Systolic 124 mmHg BP Diastolic 80 mmHg Respiratory Rate 16 /min Body Temperature 97.9 F Pain Level 7 O2 % BldC Oximetry 97 % BMI (Body Mass Index) 35.1 kg/m2 09/14/2018 1:32pm Height 63 inches 5'3" Weight 202.00 lb BP Systolic Sitting 124 mmHg BP Diastolic Sitting 78 mmHg Pain Level 6 BMI (Body Mass Index) 35.8 kg/m2 07/13/2018 2:06pm Height 63 inches 5'3" Weight 214.75 lb Heart Rate 84 /min BP Systolic Sitting 134 mmHg BP Diastolic Sitting 66 mmHg Respiratory Rate 16 /min Body Temperature 97.6 F BMI (Body Mass Index) 38.0 kg/m2 03/16/2018 9:47am Height 63 inches 5'3" Weight 210.00 lb BP Systolic Sitting 140 mmHg BP Diastolic Sitting 80 mmHg Pain Level 0 BMI (Body Mass Index) 37.2 kg/m2 01/31/2017 2:12pm Height 63 inches 5'3" Weight 295.00 lb per pt BP Systolic Sitting 116 mmHg Lue, lg cuff BP Diastolic Sitting 78 mmHg Lue, lg cuff BP Systolic Standing 116 mmHg Lue BP Diastolic Standing 76 mmHg Lue Respiratory Rate 16 /min BMI (Body Mass Index) 52.3 kg/m2 Ejection Fraction 60-65% as of 08/2015 echo 10/31/2015 10:22am Height 63 inches 5'3" Weight 326.00 lb Heart Rate 82 /min BP Systolic Sitting 130 mmHg BP Diastolic Sitting 80 mmHg Pain Level 10 BMI (Body Mass Index) 57.7 kg/m2 10/10/2015 10:37am Height 63 inches 5'3" Weight 326.00 lb Heart Rate 88 /min BP Systolic Sitting 140 mmHg BP Diastolic Sitting 80 mmHg Pain Level 9 BMI (Body Mass Index) 57.7 kg/m2 09/13/2015 11:16am Height 63 inches 5'3" Weight 318.00 lb BMI (Body Mass Index) 56.3 kg/m2 08/23/2015 1:44pm Height 63 inches 5'3" Weight 318.00 lb Heart Rate 104 /min BP Systolic Sitting 128 mmHg Ra large cuff BP Diastolic Sitting 88 mmHg Ra large cuff BP Systolic Standing 122 mmHg Ra BP Diastolic Standing 88 mmHg Ra Respiratory Rate 24 /min BMI (Body Mass Index) 56.3 kg/m2 Ejection Fraction 60-65% 08/10/15 07/26/2015 1:39pm Height 63 inches 5'3" Weight 316.00 lb Heart Rate 100 /min BP Systolic 104 mmHg LA BP Diastolic 76 mmHg LA BP Systolic Sitting 108 mmHg Ra large cuff BP Diastolic Sitting 76 mmHg Ra large cuff Respiratory Rate 20 /min BMI (Body Mass Index) 56.0 kg/m2 07/12/2015 10:48am Height 63 inches 5'3" Weight 300.00 lb Pain Level 9 BMI (Body Mass Index) 53.1 kg/m2 05/31/2015 10:05am Height 63 inches 5'3" Weight 300.00 lb Heart Rate 65 /min BP Systolic Sitting 138 mmHg BP Diastolic Sitting 94 mmHg Respiratory Rate 20 /min Pain Level 9 BMI (Body Mass Index) 53.1 kg/m2 Results Test Date Facility Test Result H/L Range Note Type & Screen 10/29/2018 [facility] Patient Blood A Positive [address] [place] [address] [phone] Antibody Screen NEGATIVE CBC Auto Diff 10/19/2018 [facility] White Blood 7.9 10^3/uL N 3.5-10.[address] [place] [address] [phone] Red Blood Count 4.55 10^6/uL N 4.00-5.40 Hemoglobin 12.8 g/dL N 12.0-16.0 Hematocrit 39 % N 35-47 Mean Corpuscular Volume 85 fL N 80-97 Mean Corpuscular Hemoglobin 28 pg N 27-31 Mean Corpuscular HGB Conc 33 g/dL N 31-36 Red Cell Distribution Width 16 % High 10.5-15 Platelet Count 335 10^3/uL N 150-450 Mean Platelet Volume 7.2 fL Low 7.4-10.4 Abs Neutrophils 5.1 10^3/uL N 1.5-7.7 Abs Lymphocytes 1.9 10^3/uL N 1.0-4.8 Abs Monocytes 0.7 10^3/uL N 0-0.8 Abs Eosinophils 0.1 10^3/uL N 0-0.6 Abs Basophils 0 10^3/uL N 0-0.2 Abs Nucleated RBC 0 10^3/uL Granulocyte % 65.2 % Lymphocyte % 23.5 % Monocyte % 9.3 % Eosinophil % 1.5 % Basophil % 0.5 % Nucleated Red Blood Cells % 0 Comp Metabolic Panel 10/19/2018 [facility] Sodium 136 mmol/L N 135-145 [address] [place] [address] [phone] Potassium 3.5 mmol/L N 3.5-5.0 Chloride 98 mmol/L Low 101-111 Co2 Carbon Dioxide 30 mmol/L N 22-32 Anion Gap 8 mmol/L N 2-11 Glucose 104 mg/dL High 70-100 Blood Urea Nitrogen 12 mg/dL N 6-24 Creatinine 0.71 mg/dL N 0.51-0.95 BUN/Creatinine Ratio 16.9 N 8-20 Calcium 9.6 mg/dL N 8.6-10.3 Total Protein 5.7 g/dL Low 6.4-8.9 Albumin 3.8 g/dL N 3.2-5.2 Globulin 1.9 g/dL Low 2-4 Albumin/Globulin Ratio 2.0 N 1-3 Total Bilirubin 0.50 mg/dL N 0.2-1.0 Alkaline Phosphatase 80 U/L N 34-104 Alt 22 U/L N 7-52 Ast 18 U/L N 13-39 Egfr Non- 82.6 >60 Egfr 100.0 >60 2 Inr/Protime 10/19/2018 [facility] Inr 0.96 N 0.77-1.02 [address] [place] [address] [phone] Urinalysis Profile 10/19/2018 [facility] Urine Color Straw [address] [place] [address] [phone] Urine Appearance Clear Urine Specific [place] 1.004 Low 1.010-1.030 Urine pH 7.0 N 5-9 Urine Urobilinogen Negative Negative Urine Ketones Negative Negative Urine Protein Negative Negative Urine Leukocytes Trace Abnormal Negative Urine Blood Negative Negative * * Abnormal Negative 3 Urine Nitrite Negative Negative Urine Bilirubin Negative Negative Urine Glucose Negative Negative Urine White Blood Cell Trace(0-5/hpf) Absent Urine Red Blood Cell Trace(0-2/hpf) Absent Urine Bacteria Absent Absent Urine Squamous Epithelial Cell Present Abnormal Absent Urine Culture And 10/19/2018 [facility] Urine Culture SEE RESULT [address] [place] [address] [phone] Laboratory test 08/08/2015 [facility] B-Type 103 pg/mL High [address] [place] [address] Peptide BNP [phone] 1 OTHER SPONDYLOSIS WITH RADICULOPATHY, LUMBAR REGIO 2 Because ethnic data is not always readily available, this report includes an eGFR for both -Americans and non- Americans. The National Kidney Disease Education Program (NKDEP) does not endorse the use of the MDRD equation for patients that are not between the ages of 18 and 70, are , have extremes of body size, muscle mass, or nutritional status, or are non- or non-. According to the National Kidney Foundation, irrespective of diagnosis, the stage of the disease is based on the level of kidney function: Stage Description GFR(mL/min/1.73 m(2)) 1 Kidney damage with normal or decreased GFR 90 2 Kidney damage with mild decrease in GFR 60-89 3 Moderate decrease in GFR 30-59 4 Severe decrease in GFR 15-29 5 Kidney failure <15 (or dialysis) 3 *Ascorbic acid is present which may interfere with detection of blood. 4 SEE RESULT BELOW Name: MELLY JARRETT : [address]: Doron Gambino MD Acct: [id number] Unit: [id number] AGE: 63 Location: LAB Re10/19/18 SEX: F Status: REG REF SPEC: [id number] JOAQUIN: 10/19/[address]: Doron Gambino MD REQ: [id number] RECD: 10/19/18 STATUS: COMP _ SOURCE: URINE SPDESC: ORDERED: Urine Culture Procedure Result Reported Site Urine Culture Final 10/20/18- 1209 ML No growth of clinically significant organisms * ML - Main Lab . END OF REPORT DEPARTMENT OF PATHOLOGY, [address] [place] [address] Juan Spaulding M.D. Director [facility] # [id number] 5 >100 to <200 pg/mL: likely compensated congestive heart failure (CHF) 200 to 400 pg/mL: likely moderate CHF >400 pg/mL: likely moderate to severe CHF Procedures Date Code Description Status 10/19/2018 37082 EKG, Interpretation Only Completed 10/19/2018 02654 EKG Tracing & Interpretation Completed 01/31/2017 65913 EKG Tracing & Interpretation Completed 09/13/2015 21208 Inject Tendon Sheath Or Ligament Aponeurosis Eg Plantar Completed Fascia 08/18/2015 30024 Stress Test Completed 08/18/2015 86857 Myocardial Perfusion Imaging Tomographic (Spect) Multiple Completed Studies 08/18/2015 69672 Myocardial Perfusion Imaging Tomographic (Spect) Multiple Completed Studies 08/10/2015 52516 ECHO Transthoracic, Real-Time 2D With Doppler And Color Completed Flow 07/26/2015 18571 EKG Tracing & Interpretation Completed 05/31/2015 18619 Inject/Drain Joint/Bursa Major W/O US Completed Encounters Type Date Location Provider Dx Diagnosis Office Visit 09/14/2018 [facility] M47.26 Other spondylosis 1:30p Services Of Shree Heller MD with radiculopathy, lumbar region M43.16 Spondylolisthesis, lumbar region Office 07/13/2018 [facility] M47.26 Other spondylosis Visit 2:00p Services Of Shree Heller MD with radiculopathy, lumbar region M51.16 Intervertebral disc disorders w radiculopathy, lumbar region M43.16 Spondylolisthesis, lumbar region M48.061 Spinal stenosis, lumbar region without neurogenic salvador M47.26 Other spondylosis with radiculopathy, lumbar region Z98.1 Arthrodesis status Office Visit 03/16/2018 [facility] M54.16 Radiculopathy, 10:30a Services Of Shree Norris M.D. lumbar region Office Visit 01/31/2017 [facility] Herberth Sutherland Z01.810 Encounter for 2:20p Of Shree Fields DO preprocedural [facility] cardiovascular examination E66.09 Other obesity due to excess calories I10 Essential (primary) hypertension R73.01 Impaired fasting glucose E78.5 Hyperlipidemia, unspecified Office Visit 10/31/2015 10:20a Neurosurgery Ashu Lr Z98.1 Arthrodesis Services Of Shree Gonzalez M.D. status M47.816 Spondylosis w/o myelopathy or radiculopathy, lumbar region M79.605 Pain in left leg Office Visit 10/10/2015 11:00a Neurosurgery Ashu Lr Z98.1 Arthrodesis Services Of Shree Gonzalez M.D. status M47.816 Spondylosis w/o myelopathy or radiculopathy, lumbar region Office Visit 09/13/2015 11:00a Orthopedic Massimo M75.21 [facility] Services Of Andrew Smith tendinitis, right C.M.A. shoulder M75.01 Adhesive capsulitis of right shoulder Office Visit 08/23/2015 2:00p [facility] Herberth S. R06.02 Shortness of Of [facility] Fields, DO breath FACC R60.0 Localized edema E66.8 Other obesity I10 Essential (primary) hypertension Office Visit 07/26/2015 2:00p [facility] Herberth STristan R06.02 Shortness of Of [facility] Fields, DO breath FACC R73.01 Impaired fasting glucose E78.5 Hyperlipidemia, unspecified Office Visit 07/12/2015 10:30a Orthopedic Massimo Smith, M25.511 Pain in right Services Of M.DTristan shoulder C.M.A. Office Visit 05/31/2015 10:30a Orthopedic Massimo Smith M25.511 Pain in right Services Of M.D. shoulder C.M.A. Plan of Treatment Future Appointment(s):11/23/2018 1:00 pm - Lida Heller MD at [facility]11/12/2018 7:30 am - Samantha Bower PA-C at [facility]11/12/2018 7:30 am - Lida Heller MD at [facility]10/26/2018 - Lida Heller, MDM47.26 Other spondylosis with radiculopathy, lumbar regionFollow up:RV one week, one month, three months [id number] Spondylolisthesis, lumbar region
--- OUTSIDE RECORDS SUMMARY | 2018-11-12 05:50 | XMS REPORT | Continuity of Care Document ---
:1955 External Reference #:[id number] Author Name Kevin Viera MD Address [address] [facility] [address] [place] [address] Care Team Providers Name Role Phone Rob Aguilar MD Care Team Information [employer] Operator Unavailable Rob Aguilar MD Primary Care Physician Unavailable Payers Date Identification Numbers Payment Provider Subscriber Policy Number: [id number] [employer] [place] Melly Jarrett PayID: [id number] [address] [place] [address] Policy Number: [id number] [facility] Melly Jarrett PayID: [id number] [address] [address] [place] [address] Advance Directives Description No Information Available Problems Date Description Provider Status Onset: 06/26/2016 Allergic rhinitis due to pollen Kevin Viera MD Active Onset: 06/26/2016 Allergic rhinitis Kevin Viera MD Active Onset: 07/11/2016 Cough GAVIN King Active Onset: 11/14/2016 Posterior rhinorrhea GAVIN King Active Onset: 03/10/2018 Allergic urticaria AKTHRYN Brown Active Onset: 04/14/2018 Angioneurotic edema, subsequent Kevin Viera MD Active encounter Onset: 04/29/2018 Allergy to other foods Kevin Viera MD Active Onset: 09/10/2018 Idiopathic urticaria KATHRYN Brown Active Family History Description No Information Available Social History Type Date Description Comments Sex Unknown Smoke-Free Home is smoke-free Pets several cats Tobacco Use Start: Unknown Never Smoked Cigarettes Smoking Status Reviewed: 10/20/18 Never Smoked Cigarettes Tobacco Use Start: Unknown [...] Tablets 5mg 30tab take one L50.1 Christopher s tablet by Santiago Viera MD [...] Active Tablets 10mg 30tab take one L50.0 s tablet by Santiago Viera MD mouth [...] Hx Tablets 10mg 24tab Take 4 L50.1 s tablets Santiago Viera MD - for [...] evening. Nasonex 11/04 Hx Suspension 50mcg/Act 17gm [place] 2 J30.1 sprays in Santiago Viera MD - each 09/10 nostr by intranasa l route once daily. Medrol 05/06 Hx Tablets 4mg 15tab take 5 s tablets Santiago Viera MD - day 1, 11/04 take tabs day 2, take 3 tabs day 3, take 2 tabs day 4. then take 1 tab on day 5. Qnasl 06/26 Hx Aerosol 80mcg/Act 1unit 2 puffs J30.1 s each Santiago Viera MD - nostril 11/14 every Xyzal 06/26 Hx Tablets 5mg 30tab 1 tab by J30.1 s mouth Santiago Viera MD - every day 11/04 as needed /2017 Bupropion HCL ER 00/ Hx Tablets ER 150mg Niziol, (SR) /0000 12HR Seymour Olvera MD 11/14 Potassium Hx Tablets ER 10Meq Niziol, Chloride ER /0000 Seymour Olvera MD 08/15 Verapamil HCL Hx Tablets 120mg Niziol, /0000 Seymour Olvera MD 09/10 Paroxetine HCL Hx Tablets 40mg Niziol, /0000 Seymour Olvera MD 08/15 Lisinopril Hx Tablets 2.5mg Unknown / - 09/10 Meloxicam Hx Tablets 15mg 1 x a day Unknown / as needed - 08/15 Lasix Hx Tablets 40mg Unknown / - 09/10 Hair/Skin/Nails Hx Unknown / - 11/14 Super B Complex Hx Unknown Maxi / - 11/04 Flax Seed Oil Hx Unknown / - 09/17 Womens Hx Unknown Multivitamin /0000 Plus - 11/04 Calcium 600+D3 Hx Tablets 600-800mg Unknown / -11/04 Folic Acid / Hx Unknown / - 11/04 Vitamin E Blend Hx Capsules 400Unit Unknown / - 11/14 Magnesium /00 Hx Tablets 400mg Unknown / - 11/04 Nexium / Hx Unknown / - 11/14 Doxylamine / Hx Unknown Succinate / - 08/15 Tramadol HCL 00/00 Hx Tablets 50mg Unknown / - 11/04 Furosemide /00 Hx Tablets 40mg Unknown / - 11/14 Verapamil HCL ER 00/00 Hx Tablets ER 120mg Unknown / - 11/14 Doxycycline / Hx Capsules 100mg one Unknown Hyclate tablet by - mouth 11/04 once a day Omeprazole Hx Capsules 40mg Niziol Seymour Lantigua MD 09/10 Buspirone HCL Hx Tablets 10mg 1 po bid - 09/10 Bactrim DS Hx Tablets 800-160mg twice a day for - 14 days 12/07 Hydroxyzine HCL Hx Tablets 25mg take one tablet by - mouth 09/10 6hrs prn [...] Subq/Im Injection 05/19/ Administered Injection Christopher Omalizumab 2017 Santiago Viera MD MG Therapeutic, 05/19/ [...] Available Procedures Date Code Description Status 10/20/2018 15830 Therapeutic, Prophylactic Or Diagnostic Injection Subq/Im Completed 09/22/2018 28781 Therapeutic, Prophylactic Or Diagnostic Injection Subq/Im Completed 09/17/2018 06315 Allergy Tests Percutaneous W/ Allergenic Extracts Completed 06/11/2018 83910 Therapeutic, Prophylactic Or Diagnostic Injection Subq/Im Completed 05/19/2018 17677 Therapeutic, Prophylactic Or Diagnostic Injection Subq/Im Completed 04/14/2018 58186 Therapeutic, Prophylactic Or Diagnostic Injection Subq/Im Completed 04/09/2018 18130 Allergy Injection 2 Or More Completed 03/31/2018 46893 Allergy Injection Single Completed 03/24/2018 56423 Allergy Injection 2 Or More Completed 03/19/2018 20464 Allergy Injection 2 Or More Completed 03/03/2018 58986 Allergy Injection 2 Or More Completed 02/24/2018 33499 Allergy Injection 2 Or More Completed 02/17/2018 65714 Allergy Injection 2 Or More Completed 02/10/2018 45326 Allergy Injection 2 Or More Completed 01/27/2018 03918 Allergy Injection 2 Or More Completed 01/20/2018 99775 Allergy Injection 2 Or More Completed 01/06/2018 79252 Allergy Injection 2 Or More Completed 12/30/2017 47257 Allergy Injection 2 Or More Completed 12/23/2017 44910 Allergy Injection 2 Or More Completed 12/16/2017 70508 Allergy Injection 2 Or More Completed 12/09/2017 44716 Allergy Injection 2 Or More Completed 12/04/2017 57975 Allergy Injection 2 Or More Completed 11/25/2017 55747 Allergy Injection 2 Or More Completed 11/18/2017 51840 Allergy Injection 2 Or More Completed 11/13/2017 74491 Allergy Injection 2 Or More Completed 11/10/2017 46658 Allergy Antigens Single Or Multiple Completed 04/15/2017 61643 Therapeutic, Prophylactic Or Diagnostic Injection Subq/Im Completed 11/14/2016 60065 Nitric Oxide Gas Determination Completed 11/14/2016 18773 Bronchodilation Responsiveness Spirometry Pre/Post Completed Bronchodil Adm 07/11/2016 63221 Education/Training PT Self-Management Each 30Minutes Indiv Completed PT 06/26/2016 96623 Allergy Tests Percutaneous W/ Allergenic Extracts Completed Encounters Type Date Location Provider Dx Diagnosis Office Visit 10/20/2018 10:00a KATHRYN Rodriguez L50.1 Idiopathic urticaria L50.0 Allergic urticaria Z91.018 Allergy to other foods J30.89 Other allergic rhinitis Office Visit 10/07/2018 11:30a Ana Sutherland L50.1 Idiopathic Fen[place]acher, RPA-C urticaria Office Visit 09/17/2018 9:30a KATHRYN Rodriguez L50.1 Idiopathic urticaria L50.0 [...] Allergic urticaria Office Visit 11/04/2017 10:00a Tony Wolff30.1 Allergic rhinitis due Fenstermacher, to pollen RPA-C J30.89 Other allergic rhinitis R09.82 Postnasal drip Office Visit 05/06/2017 8:45a Mariella Brooks30.1 Allergic rhinitis MD due to pollen J30.89 Other allergic rhinitis Office Visit 04/15/2017 4:15p Mariella Brooks30.1 Allergic rhinitis MD due to pollen J30.89 Other allergic rhinitis Office Visit 11/14/2016 10:30a Tony Adamesstkayla J30.1 Allergic RPA-C rhinitis due to pollen J30.89 Other allergic rhinitis R09.82 Postnasal drip R05 Cough Office Visit 08/15/2016 11:00a Tony Sutherland Fenstermacher, RPA-C R05 Cough J30.1 Allergic rhinitis due to pollen J30.89 Other allergic rhinitis Office Visit 07/11/2016 2:00p Tony Sutherland Fenstermacher, RPA-C R05 Cough J30.1 Allergic rhinitis due to pollen J30.89 Other allergic rhinitis Office Visit 06/26/2016 10:30a Mariella Puentes30.1 Allergic rhinitis MD due to pollen J30.89 Other allergic rhinitis Plan of Treatment Future Appointment(s):11/17/2018 8:45 am - Injection 1 at [facility]00/09/2019 10 :00 am - KATHRYN Brown at [facility]16/12/2019 - Cliff Brown PAL50.1 Idiopathic urticariaComments:Patient's CBC, liver function, thyroid studies, vitamin B12, sed rate were all within normal range.Patient's GEOFFREY showed slight positive with results most likely insignificant. Overall, patient's physical and mental status allows me to conclude that patient is a good candidate to undergo neurosurgery for L3 and L4 at this time. Patient is hopeful and looking forward to increased relief from ongoing pain.L50.0 Allergic vzkhsdatsF62.018 Allergy to other njhetR39.89 Other allergic rhinitis
--- OUTSIDE RECORDS SUMMARY | 2018-11-12 05:51 | XMS REPORT | Continuity of Care Document ---
:1955 External Reference #:[id number] Author Name Funmilayo Ward Care Team Providers Name Role Phone Rob Aguilar MD Primary Care Physician Unavailable Payers Date Identification Numbers Payment Provider Subscriber Policy Number: [id number] Medicare Melly Jarrett PayID: [id number] [address] [place] [address] Policy Number: [id number] [employer] Melly Jarrett Group Number: [id number] [address] [address] PayID: [id number] [place] [address] Effective: 2015 Policy Number: [id number] [facility] Medicare Solutions Melly Jarrett Expires: 2016 Group Number: [id number] [address] [address] PayID: [id number] [place] [address] Onset: 1989 Policy Number: [id number] [employer] Melly Jarrett Group Number: [id number] [phone] [address] Group Name: [id number] [place] [address] PayID: [id number] Expires: 2015 Policy Number: [id number] Medicare [employer] Callum Jarrett PayID: [id number] [address] [place] [address] Expires: 2015 Policy Number: [id number] [employer] Juan Jarrett Group Number: [id number] [address] PayID: [id number] [place] [address] Effective: 1989 Policy Number: [id number] [employer] Melly Jarrett Group Name: Workers' Compensation [address] [address] [place] [address] Advance Directives Description No Information Available Problems [...] Unknown Never Smoked Cigarettes Smoking Status Reviewed: 10/19/18 Never Smoked Cigarettes ETOH Use Denies alcohol use Tobacco Use Start: Unknown Patient has never smoked Recreational Drug Use Denies Drug Use Exercise Type/Frequency Does not exercise Allergies, Adverse Reactions, Alerts Date Description Reaction Status Severity Comments 05/31/2015 Floxin rash Active 01/31/2017 Augmentin Active 01/31/2017 Doxycycline Urticaria Active Patient prescribed and just finished by Dr. Aguilar 09/14/2018 Morphine Active Medications Medication Date Status Form Strength [...] Chewtabs 2 bid Unknown 0000 Paroxetine HCL 00/ Active Tablets 40mg 1 by mouth Unknown 0000 every day Furosemide 00/ Active Tablets 40mg 1 by mouth Unknown 0000 every day Omeprazole / Active Capsules 20mg 1 by mouth Unknown 0000 DR every day Levocetirizine 0000/ Active Tablets 5mg 1 every Unknown Dihydrochloride 0000 evening Verapamil HCL 00/ Active Tablets 40mg 1 tab Unknown 0000 daily Hair Skin & Nails 07/26/ Hx Chewtabs 1 po qd Herberth Sutherland 2014, DO [facility] 2016 Glucosamine 07/26/ Hx Capsules 2 po qd Herberth Sutherland Chondroitin 2014, DO [facility] 2016 Eszopiclone 05/31/ Hx Tablets 3mg 30tab 1 tab each Massimo 2014 - s night at [facility], 01/01/ bedtime by M.DTristan 2017 mouth as needed insomnia. Diltiazem HCL ER 05/31/ Hx Caps ER 300mg 30cap 1 by mouth Massimo 2014 - 24HR s every day Sarah, M.D. 2017 Meloxicam 05/31/ Hx Tablets 15mg 30tab once daily Massimo 2014 with food Sarah, M.D. 2017 Embeda 05/31/ Hx Capsules 30-1.2mg take 2 in Massimo 2014 - ER the Am Sarah, .D. 2017 Furosemide 05/31/ Hx Tablets 40mg 90tab 1 by mouth Massimo 2014 - clifford every day Sarah, M.D. 2014 Metoprolol 05/31/ Hx Tablets 25mg 180ta 1 by mouth Massimo Tartrate 2014 - bs twice a [facility], 07/12/ day M.D. 2014 Oxycodone HCL ER 05/31/ Hx Tab ER 12H 10mg 100ta 1 tab by Massimo 2014 - Abuse-Det bs mouth Sarah, 07/10/ every 4-6 M.D. 2018 hours Paroxetine HCL 05/31/ Hx Tablets 20mg 30tab 1 by mouth Massimo 2014 - s every day Sarah, M.D. 2017 Cyclobenzaprine 05/31/ Hx 10mg once at Massimo 2014 - bedtime Sarah, M.D. 2017 Esomeprazole 05/31/ Hx Capsules 40mg 30cap 1 by mouth Massimo horton every day Sarah, M.D. 2017 Gabapentin 05/31/ Hx Capsules 300mg 120ca 3 by mouth Massimo 2014 Seymour ps every Sarah, 01/01/ night at M.D. 2017 bedtime Montelukast 00/00/ Hx Tablets 10mg 1 by mouth Unknown Sodium 0000 - every day 2016 Calcium 600 + D 00/ Hx Tablets 600-200mg 1 by mouth Unknown 0000 - -Unit every day 2016 Xanax /00/ Hx Tablets 0.25mg one by Unknown 0000 - mouth up 08/10/ to three 2015 times daily as needed for anxiety Symbicort 0000/ Hx Aerosol 160-4.5mc unit puffs Unknown 0000 - g/Act twice a 2016 Zestoretic /00/ Hx Tablets 20-12.5mg take one Unknown 0000 - tablet by 07/12/ mouth one 2015 time daily Prednisone 00/00/ Hx Tablets 10mg 30mg daily Unknown 0000 - for 1 , 20mg 2015 daily for 1 week, 10 mg daily for 1 week Furosemide /00/ Hx Tablets 20mg 1 po daily Unknown 0000 - 2018 Multivitamins 00/00/ Hx Capsules 1 by mouth Unknown 0000 - every day 2017 Flaxseed Oil / Hx Capsules 1000mg 1 by mouth Unknown 0000 - every day 2017 Cobb-3 / Hx Capsules 450mg 1 po qd Unknown 0000 - 2016 Vitamin B12 00/ Hx 1000mcg 1 po qd Unknown - [...] Unknown 0000 - every day 2016 Lisinopril-Hydroc 00/ Hx Tablets 20-12.5mg 1 po bid Unknown hlorothiazide - 2016 Potassium /00/ Hx Tablets ER 10Meq 1 by mouth Unknown Chloride ER 0000 - every day 2014 Doxycycline /00/ Hx Capsules 100mg 1 po bid Niziol, Hyclate 0000 - for Rob 01/30/ carlos DORADO 2017 in legs OS-Keyur Calcium + 00/00/ Hx Tablets 500-200mg 1 tablet Unknown D3 0000 - -Unit daily 2017 Dexamethasone 00/00/ Hx Tablets 4mg 1 tabs by Unknown 0000 - mouth 01/01/ every 12 2017 hours Levocetirizine 00/00/ Hx Tablets 5mg 1 by mouth Unknown Dihydrochloride 0000 - every day 2016 Lisinopril /00/ Hx Tablets 10mg 1 by mouth Unknown [...] Hx Capsules 20mg once daily Unknown (PMDD) - 2018 Prednisone 00/ Hx Tablets 10mg 2 bid Unknown - 2018 Medications Administered in Office Medication Date Status Form Strength Qnty SIG Indications Ordering Provider Celestone 3 mg Administered Injection Massimo and 3mg Srheya Smith M.D. Inj, Administered Injection Keaton Kuhn Regadenoson, 015 Pagan, 0.1 MG M.DTristan, FACC, FASNC Inj, Administered Injection Herberth S. Regadenoson, 015 Fields, DO 0.1 MG FACC Technetium TC Administered Injection Keaton Kuhn 99M 015 Shiraz Pagan M.D., FACC, Per Unit Dose FASNC Up To 40 Millicuries Technetium TC Administered Injection Herberth S. 99M 015 Fields, DO Tetrofosmin, FACC Per Unit Dose Up To 40 Millicuries Depomedrol Administered Injection Massimo 80MG Jovanna Portillo.D. Immunizations Description No Information Available Vital Signs Date Vital Result Comment 10/19/2018 9:19am Height 63 inches 5'3" Weight [...] Date Facility Test Result H/L Range Note Laboratory test 08/08/2015 [facility] B-Type 103 pg/mL High [address] [place] [address] Peptide BNP [phone] 1 >100 to <200 pg/mL: likely compensated congestive heart failure (CHF) 200 to 400 pg/mL: likely moderate CHF >400 pg/mL: likely moderate to severe CHF Procedures Date Code Description Status 10/19/2018 01039 EKG Tracing & Interpretation Completed 01/31/2017 94719 EKG Tracing & Interpretation Completed 09/13/2015 15696 Inject Tendon Sheath Or Ligament Aponeurosis Eg Plantar Completed Fascia 08/18/2015 51968 Stress Test Completed 08/18/2015 88928 Myocardial Perfusion Imaging Tomographic (Spect) Multiple Completed Studies 08/18/2015 41638 Myocardial Perfusion Imaging Tomographic (Spect) Multiple Completed Studies 08/10/2015 51806 ECHO Transthoracic, Real-Time 2D With Doppler And Color Completed Flow 07/26/2015 08262 EKG Tracing & Interpretation Completed 05/31/2015 72116 Inject/Drain Joint/Bursa Major W/O US Completed Encounters [...] Norris M.D. lumbar region Office Visit 01/31/2017 [facility] Herberth Sutherland Z01.810 Encounter for 2:20p Of Shree Fields DO preprocedural FAC cardiovascular examination E66.09 Other obesity due to [...] of right shoulder Office Visit 08/23/2015 2:00p [facility] Herberth STristan R06.02 Shortness of Of Shree Fields, DO breath FACC R60.0 Localized edema E66.8 Other obesity I10 Essential (primary) hypertension Office Visit 07/26/2015 2:00p [facility] Herberth STristan R06.02 Shortness of Of Multicultural Manager Fields, DO breath FACC R73.01 Impaired fasting glucose E78.5 Hyperlipidemia, unspecified Office Visit 07/12/2015 10:30a Orthopedic Massimo Smith, M25.511 Pain in right Services Of [facility] shoulder C.MTristanA. Office Visit 05/31/2015 10:30a Orthopedic Massimo Smith, M25.511 Pain in right Services Of [facility] shoulder C.M.A. Plan of Treatment Future Appointment(s):11/05/2018 9:30 am - Samantha Bower PA-C at [facility]11/05/2018 9:30 am - Lida Heller MD at [facility]10/26/2018 3:00 pm - Lida Heller MD at [facility]10/19/2018 - Doron Gambino MDZ01.810 Encounter for preprocedural cardiovascular examinationComments:Dr. Garcia has requested EKG, UA, CXR, CBC and BMP. Given her June Tylenol overdose (though states she only took 2 pill!?) and recent cancer surgery I will get CMP instead of BMP. EKG is normal sinus rhythm, without ischemic changes. If no concerning lab findings she is cleared for her surgery.Of note is here nearly 2 years of prednisone use, recently tapered off 8 days ago. with any post operative hypotension, recommend low threshold for stress dose steroids for potential adrenal insufficiency.M47.26 Other spondylosis with radiculopathy, lumbar cmutwhO20 Essential (primary) hypertensionComments:Controlled. Continue verapamil and lasix.
[2018-11-12] MEDS ORDERED: Lactated Ringers 1000 ML Bag* 1,000 ML IV SCH (06:00)
[2018-11-12] MEDS ORDERED: Buffered Lidocaine 1% SYRIN* 1 ML/SYRINGE INTRADERM ONE (06:49)
[2018-11-12] MEDS ORDERED: Thrombin 5,000 UNITS* 1 APPLIC KIT - topical use - TOPICAL ONE (06:54)
[2018-11-12] MEDS ORDERED: Bacitracin INJECTION* 50,000 UNITS ONE ×4 (06:54→15:38)
[2018-11-12] MEDS ORDERED: Lidocain 1% EPI 1:100,000 * 30 ML MDV ONE (06:54)
[2018-11-12] MEDS ORDERED: Propofol* 500 MG/50 ML BTL ONE ×2 (07:23→09:15)
[2018-11-12] MEDS ORDERED: Remifentanil* 2 MG VIAL ONE ×4 (07:23→14:17)
[2018-11-12] MEDS ORDERED: Lidocaine 2% PF * 5 ML VIAL ONE (07:23)
[2018-11-12] MEDS ORDERED: Propofol* 10 MG/ML 20 ML BTL ONE ×3 (07:23→18:08)
[2018-11-12] MEDS ORDERED: KETAMINE HCL* 50 MG/ML 10 ML VIAL ONE (07:24)
[2018-11-12] MEDS ORDERED: Succinylcholine* 20 MG/ML 10 ML VIAL ONE (07:30)
[2018-11-12] MEDS ORDERED: fentaNYL* 50 MCG/ML 2 ML VIAL (100 MCG VIAL) ONE (07:30)
[2018-11-12] MEDS ORDERED: Midazolam* 1 MG/ML 2 ML VIAL (2 MG) ONE (07:30)
[2018-11-12] MEDS ORDERED: Dexamethasone IV* 4 MG/ML 1 ML (4 MG) ONE (08:46)
[2018-11-12] MEDS ORDERED: Naloxone* 0.4 MG/ML 1 ML VIAL IV PRN (08:56)
[2018-11-12] MEDS ORDERED: Acetaminophen IV 1GM/100ML * 1,000 MG/100 ML VIAL IVPB ONE (08:56)
[2018-11-12] MEDS ORDERED: DiMENhydriNATE IV* 50 MG/ML VIAL IV PUSH PRN (08:56)
[2018-11-12] MEDS ORDERED: Propofol* 200 ML ONE (09:16)
[2018-11-12] MEDS ORDERED: Rocuronium* 10 MG/ML VIAL ONE ×2 (09:30→13:08)
[2018-11-12] MEDS ORDERED: Propofol* 1,000 MG/100 ML BTL ONE (14:17)
[2018-11-12] MEDS ORDERED: Propofol* 100 ML ONE (14:19)
[2018-11-12] MEDS ORDERED: Ondansetron INJ* 2 MG/ML VIAL ONE (16:56)
[2018-11-12] MEDS ORDERED: HYDROmorphone INJ1* 1 MG/ML SYRINGE ONE ×2 (16:56→18:47)
[2018-11-12] MEDS ORDERED: Metoclopramide IV* 5 MG/ML 2 ML VIAL ONE (16:56)
[2018-11-12 17:45] LABS: Hematocrit 30 % (35-47); Hemoglobin 10.1 g/dl (12.0-16.0)
[2018-11-12] MEDS ORDERED: EPHEDrine (Pressors)* 50 MG/ML VIAL ONE (18:22)
[2018-11-12] MEDS ORDERED: Acetaminophen IV 1GM/100ML * 100 ML ONE (18:48)
[2018-11-12] MEDS: HYDROmorphone INJ1* 1 MG/ML SYRINGE IV PRN ×5 (18:49→23:40)
[2018-11-12] MEDS ORDERED: DOXYcycline CAP(*) 100 MG PO SCH (21:00)
[2018-11-12] MEDS: Lactated Ringers 1000 ML Bag* 1,000 ML IV SCH (21:16)
--- NOTE | 2018-11-12 23:12 | PN ---
Progress Note - Progress Note Date of Service: 11/12/18 SOAP: Subjective: []Notified by nurse that patient reported that she had difficulty moving her LLE when she arrived at the floor. She reported that she was able to move her feet well in recovery. On my exam, patient was able to move all extremities well in recovery, with LLE weakness, similar to preop. ( Patient had Left Hip Flexion weakness and generalized LLE weakness preop. She reported that her was helping her to lift her LLE in order to get into the car). Patient was repositioned prior to exam and had Dilaudid IV. Patient more comfortable now. She is able to move her LLE much better as she reports. Her preop LLE pain has resolved and her preop LLE numbness has improved. Perineal sensation intact. Objective: [] VSS, Afebrile. Wound s,c,d. Drains in place output noted. AAOx3 DESIRAE, CN II-XII grossly intact Motor 5/5 all extremities, except LLE 4+/5, Left hip flexion 4/5, similar to preop exam earlier today. Sensory grossly intact to light touch. Left thigh sensation is improved c/w preop per patient. Assessment: []63 yof POD#0 T11-S1 PL arthrodesis, Left L3-4 TLIF and revision of previous instrumentation. Plan: []Monitor VS, Neurochecks Pain control. Drains functioning, Monitor output. CT T/L spine in am Check labs. PT in am. May consider rehab. NPO Discussed with patient possibility of wound exploration in case she experiences any other episodes of weakness. Patient feels that her weakness was transient and now she is at her baseline. Will monitor for now. Zelalem Heller MD
[2018-11-12] MEDS ORDERED: Dexamethasone IV* 4 MG/ML 1 ML (4 MG) IM ONE (23:30)
[2018-11-12] MEDS: LevoCETirizine TAB (NF) 5 MG TAB PO SCH (23:38)
[2018-11-12] MEDS: DOXYcycline CAP(*) 100 MG PO SCH (23:39)
[2018-11-12] MEDS: HYDROcodone/ACETAMIN 5-325 MG* 1 TAB PO PRN (23:39)
[2018-11-12] MEDS: traZODone TAB* 50 MG TAB PO SCH (23:39)
[2018-11-12] MEDS: Zolpidem TAB* 10 MG PO SCH (23:51)
--- NOTE | 2018-11-13 00:57 | CONS ---
[facility] MEDICINE CONSULTATION REPORT: DATE OF CONSULT: 11/12/18 PROVIDER: Clau Mobley NP. ATTENDING PHYSICIAN: Dr. Heller. CONSULTING PHYSICIAN: Dr. Roshni Jacobson (dictated by Clau Mobley NP) REASON FOR CONSULT: Comanagement of chronic medical conditions. HISTORY OF PRESENT ILLNESS: Ms. Jarrett is a 63-year-old female with past medical history significant for chronic back pain, anxiety, history of left kidney cancer status post resection, history of back fusion, left-sided sciatica who presented to [facility] on 11/12/18 for L4-S1 hardware revision with Dr. Heller. Please see dictated H and P from Dr. Heller for complete details. In brief, the patient had ongoing pain and failed conservative measures, therefore opted for hardware revision from L4-L5 with Dr. Heller. In the immediate postoperative period, we were called for consultation due to the patient's history of hypertension, anxiety. In the immediate postoperative period, the patient complains of left leg pain. The patient reports that she was recently diagnosed with cellulitis approximately 2 weeks ago. At that time, she was placed on doxycycline by her doctor, Dr. Aguilar. She reports that she has 3 days left on her course of doxycycline antibiotic treatment. She does report that the redness has totally cleared from her lower extremities and she has had no further issues. She denies any recent fever, chills, nausea, vomiting or diarrhea. Denies any abdominal pain. Denies any chest pain or shortness of breath. Due to her history of chronic back pain and hypertension and multiple medication allergies , we were asked to see her in consultation. PAST MEDICAL HISTORY: Significant for: 1. Chronic back pain with history of spinal fusion. 2. Anxiety. 3. History of left kidney cancer status post resection. 4. Osteoarthritis. 5. Obesity. 6. GERD. 7. Depression. PAST SURGICAL HISTORY: 1. Spinal fusion, 1990. 2. Carpal tunnel release bilaterally. 3. Tonsillectomy. 4. Cataract removal. 5. Cholecystectomy. 6. Knee surgery. 7. Sinus surgery. HOME MEDICATIONS: 1. Trazodone 50 mg p.o. at bedtime. 2. Ambien 10 mg p.o. at bedtime. 3. Xyzal 5 mg p.o. at bedtime. 4. Verapamil 40 mg p.o. q.a.m. 5. Omeprazole 20 mg p.o. b.i.d. 6. Furosemide 40 mg p.o. q.a.m. 7. Doxycycline 300 mg p.o. b.i.d. 8. Sertraline 10 mg p.o. daily. 9. Bariatric fusion vitamins 2 tablets p.o. b.i.d. ALLERGIES: 1. CODEINE 2. ASPIRIN. 3. NSAIDS. 4. AMOXICILLIN. 5. AUGMENTIN. 6. HYDROCODONE. 7. MORPHINE. 8. ZOFRAN. 9. OXYCODONE. 10. PENICILLIN. 11. ACETAMINOPHEN. 12. OFLOXACIN. The patient reports that she breaks out in hives with all antibiotics, unsure of the names. FAMILY HISTORY: Mother with a history of hypertension and Alzheimer disease. Father, unknown medical history. SOCIAL HISTORY: The patient is . She lives with her . Surrogate decision maker in the event she is unable to make her own decision is her . She is a full code. She denies any tobacco, alcohol or illicit drug use. REVIEW OF SYSTEMS: She denies any recent fever, chills, nausea, vomiting or diarrhea. She denies any cough, hemoptysis or shortness of breath. Denies any gross hematuria, dysuria, focal weakness or sensory loss. She denies any visual complaints, dysphagia, arthralgias, myalgias, rashes, lesions or open sores. Denies any psychosis or anxiety. She does complain of left leg pain status post surgery. She also reports that she recently had bilateral lower extremity cellulitis, for which she is currently on doxycycline. PHYSICAL EXAM: General: Ms. Jarrett is a 63-year-old female. She is resting on the stretcher in PACU. She is drowsy status post anesthesia. She is complaining of mild pain to her left leg and some mild nausea. HEENT: Head is atraumatic, normocephalic. Eyes: EOMs are intact. Sclerae are anicteric and not pale. Oral mucosa appeared to be moist. Neck is supple. Lungs are clear to auscultation bilaterally. No wheezes, rales or rhonchi. Cardiac: S1 and S2. Regular rate and rhythm. Abdomen is obese, soft, nontender. Bowel sounds are present x4. Extremities: She is able to move all 4 extremities. Pedal pulses are +2 bilaterally. Radial pulses are +2 bilaterally. Skin: She has 2 PAULO drains with bloody drainage noted from both. Psych: She is drowsy, resting on the stretcher in PACU. She does not appear to be in any acute distress. Neurologic: She is alert and oriented x3, but drowsy, resting on the stretcher in PACU. Hand maintenance and engineering manager are equal. Speech is clear. Thought process is intact. There are no gross focal deficits. Vital Signs: Blood pressure 120/78, heart rate is 101, respirations 16, O2 saturation 94% on 4 L nasal cannula, temperature was 97.5. LABORATORY DATA: Preoperatively, WBCs were 7.9 on 10/19/18, RBCs were 4.55. Hemoglobin today on 11/12/18 was 10, hematocrit was 30, platelet count was 335, 000. On 10/19/18, INR was 0.96. On 10/19/18, sodium was 156, potassium 3.5, chloride 98, carbon dioxide was 30, anion gap was 8, BUN was 12, creatinine 0.71. AST was 18, ALT was 22, alkaline phosphatase was 80. Urine pH was 7.0, specific gravity 1.004; protein, ketones, blood, nitrites, bilirubin and urobilinogen were all negative. Urine leukocyte esterase was trace. WBCs were trace. RBCs were trace. Squamous epithelial cells were present. Bacteria was absent. Glucose was negative. Urine ascorbic acid was negative. IMPRESSION AND PLAN: Ms. Jarrett is a 63-year-old female with past medical history significant for chronic back pain, anxiety, history of left kidney cancer status post resection, gastroesophageal reflux disease, hypertension who presented to [facility] for an elective hardware revision from L4-S1 with Dr. Heller. In the immediate postoperative period, the patient complains of left leg pain. Hospital Medicine was asked to consult due to the patient's chronic medical conditions of hypertension, anxiety and history of kidney cancer. Our recommendations are as follows: 1. Status post hardware revision of the lumbar spine. Management per Neurosurgery. PT/OT per Neurosurgery. Per Neurosurgery, the patient can have the head of the bed up 30 degrees. She can be out of bed to chair and physical therapy as tolerated. The patient will be on DVT prophylaxis per Neurosurgery and bowel regimen per Neurosurgery. We will repeat a CBC and BMP and magnesium level in the morning. If the patient develops hives from the current pain regimen, I would recommend consulting Dr. Avila from pain management for further recommendations on how to manage her pain. 2. Hypertension. She should continue on verapamil 40 mg p.o. daily. 3. Gastroesophageal reflux disease. She should continue on omeprazole 20 mg p.o. b.i.d. 4. Cellulitis. The patient was recently diagnosed with cellulitis approximately 2 weeks ago. She should continue on doxycycline as previously prescribed. She does have 3 more days of antibiotic to complete her treatment. 5. DVT prophylaxis: We will continue with SCDs at this time, chemical DVT prophylaxis per Neurosurgery. 6. Code status: She is a full code. 7. Fluids, electrolytes, and nutrition: The patient can have a regular diet. TIME SPENT: Time spent on this consultation was approximately 60 minutes; greater than half that time was spent at the bedside obtaining my history and physical and reviewing events leading thus far to her hospitalization, performing my physical exam, and implementing my plan of care. I have discussed this with my attending, Dr. Roshni Jacobson, and she is in agreement with my plan. CLAU MOBLEY, AMBER [id number]/[facility] #: [id number] NNIFA
[2018-11-13] MEDS: HYDROmorphone INJ1* 1 MG/ML SYRINGE IV PRN ×5 (01:49→15:01)
--- NOTE | 2018-11-13 03:17 | OP ---
OPERATIVE REPORT: DATE OF OPERATION: 11/12/18 DATE OF : 51 SURGEON: Lida Heller MD. CALIBRATION TECHNICIAN: KATHRYN Fishman. The case was done with the assistance of a surgical PA because of the complexity of the case. ANESTHESIA: General. PRE-OP DIAGNOSIS: Degenerative disease L3-4 spondylolisthesis and instability. POST-OP DIAGNOSIS: Degenerative disease L3-4 spondylolisthesis and instability. OPERATIVE PROCEDURE: The patient underwent revision of L4 to S1 arthrodesis with removal of prior instrumentation and placement of new pedicle screws. The patient underwent also T11 to S1 arthrodesis with instrumentation with placement of bilateral T11, T12, L1, right L2, bilateral L3 pedicle screws with posterolateral fusion and left L3-4 TLIF, posterior osteotomies, lysis of adhesions, with stereotactic navigation and intraoperative monitoring with locally harvested bone graft DBX and cortical cancellous bone. ESTIMATED BLOOD LOSS: 400 mL. COMPLICATIONS: None. INDICATIONS: The patient is a very pleasant 63-year-old obese female with complaints of severe axial back pain and left lower extremity pain and weakness. The patient has a history of previous L4 to S1 arthrodesis. She had MRI findings consistent with adjacent level disease with L3-4 spondylolisthesis with angulation of disk space and overlapping of the endplates with severe neuroforaminal stenosis. The patient was not able to improve with conservative modalities, and she was offered the option of surgical intervention. After explaining the expectation, limitations, and possible complications of the procedure to the patient and her with complications including, but not limited to, bleeding, infection, risk of injury to adjacent structures, coma, paralysis, , need for additional procedure, anesthesia risk, stroke, blindness, cancer, instability, hardware failure, hardware malposition, adjacent level disease, pseudoarthrosis, spinal fluid leak, proximal or distal junctional kyphosis, The patient was agreeable to proceed with surgery and informed consent was obtained. The patient understood that her condition may not improve and in fact may get worse after surgery and that she may need to have additional procedure in the future. She also understood that operative plan may be modified according to intraoperative findings and conditions and that the procedure may be abandoned or done in more than 1 stage. She understood that she may require prolonged ICU stay, and possible need for tracheostomy or gastrostomy, and other indicated procedures. DESCRIPTION OF PROCEDURE: The patient was brought to the operating room, was placed under general anesthesia by the anesthesia team. She was carefully positioned prone on a Gerardo table and all bony prominences were meticulously padded. The skin was prepped and draped in a standard fashion. After appropriate surgical pause and patient identification, a midline incision over the previous incision with extension more cephalad was performed after infiltrating the skin with local anesthetic. A #10 surgical blade was used to incise the skin. The incision was carried down to the dorsal fascia with Bovie cautery. Self-retaining retractors were introduced further into the field and the dorsal fascia was divided on both sides of midline with Bovie cautery and the paraspinal muscula was elevated in a subperiosteal fashion all the way to her previous incision where the scar tissue was gently divided with Bovie cautery. Self-retaining retractors were introduced further into the field and the previous hardware from her previous surgical intervention were gently exposed with the use of Bovie cautery and gentle retraction. Also, the transverse processes of L3 and the remaining free L4 as well as L2 and L1 were then carefully exposed. The previous hardware was then gently removed with the use of universal removal tray. Through the same pedicle screw trajectories , Medtronic Solera screws were inserted with 6.5 x 45 for S1, 6.5 x 40 and 6.5 x 45 for L5, and 6.5 x 45 for L4. Using the newly inserted pedicle screws, navigation guide was attached on the 2 caudal screw heads and intraoperative O- arm imaging was obtained. The patient's data was then transferred to the navigation platform and the position of the pedicle screws was then assessed. It was found that the L4 pedicle screws were in a slightly lateral trajectory and it was decided to be repositioned. This was performed with the use of intraoperative navigation, following the trajectories of the previous pedicle screws. Then, the pedicles of L3 were cannulated with a high- speed drill and awl tip tap and 6.5 x 50 mm screws were then inserted. As seen from the preoperative imaging, the pedicle of L2 on the left was extremely small, and even under stereotactic navigation, it was felt to be unsafe to be attempting to place a pedicle screw. Therefore, decision was made to extend the arthrodesis to T11 as was preoperatively planned and it was explained to the patient preoperatively. The lamina of T11-12 and L1 were exposed as well as the transverse processes, and with the use of a high-speed drill, awl tip tap and navigation, pedicle screws were inserted with right screw at L2 being 4.5 x 45 mm, while the L1 screws were replaced with 5.5 x 45 mm length, while the T12 was 5.5 x 40 mm screws, and T11 was 5.5 x 45 mm screws. Then, attention was brought to perform a left L3-4 TLIF to reduce the spondylolisthesis. Significant amount of scar tissue from the previous operation was encountered as expected. This was carefully dissected free with the use of Leksell rongeurs , Kerrison punches, and Bovie cautery. The medial border of the remaining bone edges on the left including the remaining lamina of L3 and the medial facet of L3-4 was then dissected free with a series of straight and curved curettes. High-speed drill was used to perform an extensive medial facetectomy as well as resection of pars on the left. It was completed with Kerrison punches as well as the facet of L3-4 on the right was also drilled with high-speed drill. Extensive foraminotomy on the left was performed with 1 and 2-mm Kerrison punches. As significant amount of scar tissue was encountered, this was very carefully dissected free from the medial aspect of the pedicle and then we carefully identified the lateral border of the thecal sac. Under stereotactic navigation, the L3-4 disk space was identified and high-speed drill was used to perform an osteotomy of the posterior apophyseal ring of L4 and L3 in order to gain access into the disk space. The disk space was entered with a high-speed drill, and after using an osteotome, the disk space was gently dilated and prepared for arthrodesis with a series of dilators, pituitary rongeurs, Kerrison punches, and curettes. After the preparation of the disk space, which was found to be extremely collapsed as expected, a small distraction from the opposite side was performed through the pedicle screws, and an 8 mm x 23 mm elevated expandable cage was then inserted after it had been filled with DBX and locally harvested bone graft. Same grafting was used to pack the disk space prior to insertion of the elevated cage. On attempt to expand the elevated cage, the mechanism was found to be defective and decision was made to remove the cage. It was gently removed and a new expandable cage with the same dimensions was gently inserted after being filled with graft material and expanded without problem. After copious irrigation and meticulous hemostasis, the instrumentation was checked with intraoperative O-arm imaging. Excellent placement of hardware was confirmed with the intraoperative O-arm. Then, attention was brought to connect the screw heads. Two cobalt chrome 200-mm rods were then contoured in shape in order to connect the screw heads. The previously placed left L4 screw head was sightly more lateral and the side connector was used to achieve perfect alignment. After securing the rods, pulse lavage with Bacitracin irrigation was then used, and after meticulous hemostasis, high-speed drill was used to decorticate the exposed transverse processes as well as the lamina, as well as the facets including the previous fusion mass. Then a mixture of DBX and cancellous bone graft was placed to secure the posterolateral arthrodesis all the way from T11 to S1. After copious irrigation and meticulous hemostasis, the self- retaining retractors were removed and two drains were placed, a PAULO on one side and Puma on the other side. These were tunneled through separate stab wound incisions. After confirmation of meticulous hemostasis and meticulous inspection and copious irrigation, the wounds were closed in layers with 0 interrupted Vicryl suture to approximate the dorsal fascia while the subcutaneous tissue was approximated with inverted interrupted 2-0 Vicryl sutures. The skin was then approximated with #1 Prolene sutures and the PAULO was secured with drain stitch. At the end of the procedure, all counts were reported to be correct. The patient remained hemodynamically stable throughout the case. Intraoperative electrophysiological monitoring remained stable throughout the case. The wound was covered with sterile dressings. The patient was then turned supine, was extubated and was transferred to Recovery in excellent condition. The case was done with the assistance of surgical PA because of the complexity of the case. [id number]/[facility] #: [id number] NINFA
[2018-11-13 07:34] LABS: ABS Basophils 0 10^3/ul (0-0.2); ABS Eosinophils 0 10^3/ul (0-0.6); ABS Lymphocytes 0.6 10^3/ul (1.0-4.8); ABS Monocytes 0.5 10^3/ul (0-0.8); ABS Neutrophils 12.4 10^3/ul (1.5-7.7); ABS Nucleated RBC 0 10^3/ul; Eosinophil % 0 %; Hematocrit 29 % (35-47); Hemoglobin 9.4 g/dl (12.0-16.0); Lymphocyte % 4.5 %; Mean Corpuscular HGB Conc 33 g/dl (31-36); Mean Corpuscular Hemoglobin 28 pg (27-31); Mean Corpuscular Volume 86 fL (80-97); Mean Platelet Volume 7.8 fL (7.4-10.4); Nucleated Red Blood Cells % 0; Platelet Count 294 10^3/ul (150-450); Red Blood Count 3.34 10^6/ul (4.00-5.40); Red Cell Distribution Width 16 % (10.5-15); White Blood Count 13.5 10^3/ul (3.5-10.8)
[2018-11-13 07:43] LABS: INR 1.11 (0.77-1.02)
[2018-11-13 08:56] LABS: Calcium 8.8 mg/dL (8.6-10.3); Potassium 4.5 mmol/L (3.5-5.0)
[2018-11-13 09:02] LABS: BUN/Creatinine Ratio 29.1 (8-20); EGFR African American 134.2 (>60); EGFR Non-African American 110.9 (>60)
[2018-11-13] MEDS: HYDROcodone/ACETAMIN 5-325 MG* 1 TAB PO PRN ×3 (11:51→23:04)
[2018-11-13] MEDS: Verapamil TAB* 80 MG PO SCH (11:51)
[2018-11-13] MEDS: DOXYcycline CAP(*) 100 MG PO SCH (11:51)
[2018-11-13] MEDS: Cetirizine* 10 MG TAB PO SCH (11:52)
[2018-11-13] MEDS: Pantoprazole TAB * 40 MG TAB PO SCH (11:52)
[2018-11-13] MEDS: Lactated Ringers 1000 ML Bag* 1,000 ML IV SCH (13:30)
--- NOTE | 2018-11-13 18:17 | PN ---
Subjective Date of Service: 11/13/18 Interval History: Reports was able to get out of bed to the chair today. States that pain medications are currently controlling her back. denies pain in her legs. denies abd pain n/v/d. denies chest pain or shortness of breath Patient is mild tachycardia rate 100-104, denies chest pain or shortness of breath. o2 sats are 98% on 2 liters NC. suspect this is related to pain and extensive lumbar surgery. Family History: Unchanged from Admission Social History: Unchanged from Admission Past Medical History: Unchanged from Admission Objective Active Medications: Hydrocodone Bitart/Acetaminophen (Bandera 5-325 Tab*) 2 tab PO Q4H PRN PRN Reason: PAIN Last Admin: 11/13/18 11:51 Dose: 2 tab Cetirizine HCl (Zyrtec*) 10 mg PO QAM [facility]; Protocol Last Admin: 11/13/18 11:52 Dose: 10 mg Cyclobenzaprine HCl (Flexeril Tab*) 10 mg PO TID PRN PRN Reason: muscle spasm Hydromorphone HCl (Dilaudid Inj1s*) 0.1 mg IV Q1H PRN PRN Reason: PAIN Last Admin: 11/13/18 15:01 Dose: 0.1 mg Lactated Ringer's (Lactated Ringers 1000 Ml Bag*) 1,000 mls @ 75 mls/hr IV .per rate [facility] Last Admin: 11/13/18 13:30 Dose: 75 mls/hr Levocetirizine (Xyzal Tab (Nf)) 5 mg PO BEDTIME [facility] Last Admin: 11/12/18 23:38 Dose: Not Given Pantoprazole Sodium (Protonix Tab*) 40 mg PO DAILY [facility] Last Admin: 11/13/18 11:52 Dose: 40 mg Trazodone HCl (Desyrel Tab*) 50 mg PO BEDTIME [facility] Last Admin: 11/12/18 23:39 Dose: 50 mg Verapamil HCl (Calan Tab*) 40 mg PO QAM [facility] Last Admin: 11/13/18 11:51 Dose: 40 mg Zolpidem Tartrate (Ambien Tab*) 10 mg PO BEDTIME [facility] Last Admin: 11/12/18 23:51 Dose: Not Given Vital Signs - 8 hr 11/13/18 11/13/18 11/13/18 11:17 11:51 13:15 Temperature 97.7 F Pulse Rate 112 Respiratory 17 16 Rate Blood Pressure 145/74 (mmHg) O2 Sat by Pulse 97 96 Oximetry 11/13/18 11/13/18 11/13/18 15:01 15:54 16:00 Temperature 98.1 F Pulse Rate 99 Respiratory 16 18 Rate Blood Pressure 123/57 (mmHg) O2 Sat by Pulse 94 94 Oximetry 11/13/18 16:20 Temperature Pulse Rate Respiratory 16 Rate Blood Pressure (mmHg) O2 Sat by Pulse Oximetry Oxygen Devices in Use Now: Nasal Cannula Appearance: appears comfortable resting in bed, alert and oreinted x 3 Eyes: No Scleral Icterus Ears/Nose/Mouth/Throat: Clear Oropharnyx, Mucous Membranes Moist Neck: NL Appearance and Movements; NL JVP, Trachea Midline Respiratory: Symmetrical Chest Expansion and Respiratory Effort, Clear to Auscultation Cardiovascular: NL Sounds; No Murmurs; No JVD, No Edema Abdominal: NL Sounds; No Tenderness; No Distention Lymphatic: No Cervical Adenopathy Extremities: No Edema, No Clubbing, Cyanosis Skin: No Rash or Ulcers Neurological: Alert and Oriented x 3 Nutrition: Taking PO's Result Diagrams: 11/13/18 07:05 11/13/18 07:05 Assess/Plan/Problems-Billing Assessment: - Patient Problems (1) Status post lumbar surgery Current Visit: Yes Status: Acute Code(s): Z98.890 - OTHER SPECIFIED POSTPROCEDURAL STATES SNOMED Code(s): 690081515 Comment: Management per Neurosurgery PT/OT per Neurosurgery- OOB to chair as tolerated HOB up 30 degrees DVT prop per neurosurgery - Patient with moderate amt of drainage from PAULO drain - will repeat CBC, BMP in the AM (2) Tachycardia Current Visit: Yes Status: Acute Code(s): R00.0 - TACHYCARDIA, UNSPECIFIED SNOMED Code(s): 1421262 Comment: Patient with mild tachycardia 104-106 - H/H decreased today 9.01/04 - pain with pain - denies shortness of breath or chest pain - supect that all of these factors are contributing to her tacycardia - will continue monitor and repeat cbc in the AM (3) HTN (hypertension) Current Visit: Yes Status: Acute Code(s): I10 - ESSENTIAL (PRIMARY) HYPERTENSION SNOMED Code(s): 29198943 Comment: verapamil (4) GERD (gastroesophageal reflux disease) Current Visit: Yes Status: Acute Code(s): K21.9 - GASTRO-ESOPHAGEAL REFLUX DISEASE WITHOUT ESOPHAGITIS SNOMED Code(s): 717859821 Comment: protonix (5) DVT prophylaxis Current Visit: Yes Status: Acute Code(s): PUH7524 - SNOMED Code(s): 005855321 Comment: SCD's (6) Full code status Current Visit: Yes Status: Acute Code(s): Z78.9 - OTHER SPECIFIED HEALTH STATUS SNOMED Code(s): 991895807 Status and Disposition: disposition per neurosurgery
[2018-11-13] MEDS: traZODone TAB* 50 MG TAB PO SCH (20:54)
[2018-11-13] MEDS: LevoCETirizine TAB (NF) 5 MG TAB PO SCH (20:55)
[2018-11-13] MEDS: Zolpidem TAB* 10 MG PO SCH (22:56)
[2018-11-13] MEDS: Cyclobenzaprine TAB* 10 MG PO PRN (23:04)
--- NOTE | 2018-11-14 01:12 | PN ---
Progress Note - Progress Note Date of Service: 11/13/18 SOAP: Subjective: []Delayed entry. Patient was seen on the morning of 11/13. No events ON. Patient tolerated procedure well yesterday. Armenta, Patient was seen at the CT. Pain well controlled. Preop LE pain resolved. Objective: []VSS, Afebrile. Wound s,c,d. Drains in place output noted. AAOx3 DESIRAE, CN II-XII grossly intact Motor 5/5 all extremities, except LLE 4+/5, Left hip flexion 4/5, similar to preop exam. Sensory grossly intact to light touch. Left thigh sensation is improved c/w preop. Assessment: []63 yof POD#1 T11-S1 PL arthrodesis, Left L3-4 TLIF and revision of previous instrumentation. Plan: []]Monitor VS, Neurochecks Pain control. Drains functioning, Monitor output. CT T/L spine revealed good placement of hardware, good alignment of spine. Possible atelectasis Ht 29 . Repeat labs in am. PT CAHIM franklin with assistance May consider rehab. Advance diet. Bowel regimen Appreciate IM care Zelalem Heller MD
[2018-11-14] MEDS: HYDROcodone/ACETAMIN 5-325 MG* 1 TAB PO PRN ×5 (03:23→22:50)
[2018-11-14] MEDS: Lactated Ringers 1000 ML Bag* 1,000 ML IV SCH (03:23)
[2018-11-14 06:24] LABS: ABS Basophils 0 10^3/ul (0-0.2); ABS Eosinophils 0 10^3/ul (0-0.6); ABS Lymphocytes 1.3 10^3/ul (1.0-4.8); ABS Monocytes 0.7 10^3/ul (0-0.8); ABS Neutrophils 6.9 10^3/ul (1.5-7.7); ABS Nucleated RBC 0 10^3/ul; Eosinophil % 0.1 %; Hematocrit 23 % (35-47); Hemoglobin 7.6 g/dl (12.0-16.0); Lymphocyte % 14.9 %; Mean Corpuscular HGB Conc 33 g/dl (31-36); Mean Corpuscular Hemoglobin 29 pg (27-31); Mean Corpuscular Volume 87 fL (80-97); Nucleated Red Blood Cells % 0.1; Platelet Count 238 10^3/ul (150-450); Red Blood Count 2.64 10^6/ul (4.00-5.40); Red Cell Distribution Width 16 % (10.5-15); White Blood Count 8.9 10^3/ul (3.5-10.8)
[2018-11-14 07:58] LABS: BUN/Creatinine Ratio 23.6 (8-20); Calcium 8.3 mg/dL (8.6-10.3); EGFR African American 134.2 (>60); EGFR Non-African American 110.9 (>60); Potassium 3.9 mmol/L (3.5-5.0)
[2018-11-14] MEDS: Verapamil TAB* 80 MG PO SCH (09:09)
[2018-11-14] MEDS: Pantoprazole TAB * 40 MG TAB PO SCH (09:10)
[2018-11-14] MEDS: Cetirizine* 10 MG TAB PO SCH (09:10)
[2018-11-14] MEDS ORDERED: Magnesium Hydroxide LIQ* 30 ML UDC PO PRN (13:00)
[2018-11-14] MEDS ORDERED: Polyethylene Glycol 3350* 17 GM PACKET PO PRN (13:00)
[2018-11-14] MEDS ORDERED: Lactated Ringers 1000 ML Bag* 1,000 ML IV SCH (13:03)
--- NOTE | 2018-11-14 13:16 | PN ---
Progress Note - Progress Note Date of Service: 11/14/18 SOAP: Subjective: []No events ON. Patient more comfortable today. Able to take a few steps, OOB in a chair earlier this am. Feels better. Back pain well controlled. No LE pain. Armenta. Flatus present. Tolerates PO well. IS at bedside. Objective: [] VSS, Afebrile. Wound s,c,d. Drains in place output noted. Puma drain removed. Catheter appeared to be intact. Patient tolerated procedure well. AAOx3 DESIRAE, CN II-XII grossly intact Motor 5/5 all extremities, except LLE 4+/5, Left hip flexion 4/5, similar to preop exam. Sensory grossly intact to light touch. Left thigh sensation is improved c/w preop. Assessment: []63 yof POD#2 T11-S1 PL arthrodesis, Left L3-4 TLIF and revision of previous instrumentation. Plan: [] Monitor VS, Neurochecks Pain control. Drain functioning, Monitor output. Ht 23 . Plan to transfuse RBC PT eval, OOB with assistance DC diana. May consider rehab. Nutrition consult. Bowel regimen DVT prophylaxis SQ Heparin. SCDs/ Encourage IS. Discussed in extend with patient and about the importance of mobilization, nutrition, use of IS Appreciate IM care Zelalem Heller MD
[2018-11-14] MEDS: Heparin VIAL(*) 5000 UNITS/ML VIAL (FIVE THOUSAND) SUBCUT SCH ×2 (14:10→21:15)
--- NOTE | 2018-11-14 14:55 | PN ---
Subjective Date of Service: 11/14/18 Interval History: patient reports that she continues to have good pain control with current pain medications. denies fever or chills Denies chest pain or shortness of breath. Denies abd pain n/v/d. encouraged the patient to get oob to the chair and walk. Family History: Unchanged from Admission Social History: Unchanged from Admission Past Medical History: Unchanged from Admission Objective Active Medications: Hydrocodone Bitart/Acetaminophen ([place] 5-325 Tab*) 2 tab PO Q4H PRN PRN Reason: PAIN Last Admin: 11/14/18 14:09 Dose: 2 tab Cetirizine HCl (Zyrtec*) 10 mg PO QAM VISHAL; Protocol Last Admin: 11/14/18 09:10 Dose: 10 mg Cyclobenzaprine HCl (Flexeril Tab*) 10 mg PO TID PRN PRN Reason: muscle spasm Last Admin: 11/13/18 23:04 Dose: 10 mg Docusate Sodium (Colace Cap*) 100 mg PO BID VISHAL Heparin Sodium (Porcine) (Heparin Vial(*)) 5,000 units SUBCUT Q8HR [facility] Last Admin: 11/14/18 14:10 Dose: 5,000 units Hydromorphone HCl (Dilaudid Inj1s*) 0.1 mg IV Q1H PRN PRN Reason: PAIN Last Admin: 11/13/18 15:01 Dose: 0.1 mg Levocetirizine (Xyzal Tab (Nf)) 5 mg PO BEDTIME [facility] Last Admin: 11/13/18 20:55 Dose: Not Given Magnesium Hydroxide (Milk Of Magnesia Liq*) 30 ml PO BID VISHAL Magnesium Hydroxide (Milk Of Magnesia Liq*) 30 ml PO BID PRN PRN Reason: CONSTIPATION Non-Formulary Medication (Bariatric Fusion Vitamins) 2 tab PO BID VISHAL Pantoprazole Sodium (Protonix Tab*) 40 mg PO DAILY VISHAL Last Admin: 11/14/18 09:10 Dose: 40 mg Polyethylene Glycol/Electrolytes (Miralax*) 17 gm PO DAILY PRN PRN Reason: CONSTIPATION Last Admin: 11/14/18 14:10 Dose: 17 gm Senna (Senokot Tab*) 1 tab PO BEDTIME PRN PRN Reason: CONSTIPATION Trazodone HCl (Desyrel Tab*) 50 mg PO BEDTIME [facility] Last Admin: 11/13/18 20:54 Dose: 50 mg Verapamil HCl (Calan Tab*) 40 mg PO QAM [facility] Last Admin: 11/14/18 09:09 Dose: 40 mg Zolpidem Tartrate (Ambien Tab*) 10 mg PO BEDTIME [facility] Last Admin: 11/13/18 22:56 Dose: 10 mg Vital Signs - 8 hr 11/14/18 11/14/18 11/14/18 07:16 07:43 09:10 Temperature 98.2 F Pulse Rate 100 Respiratory 13 18 18 Rate Blood Pressure 132/67 (mmHg) O2 Sat by Pulse 98 Oximetry 11/14/18 11/14/18 11/14/18 11:23 12:57 14:09 Temperature 97.6 F Pulse Rate 91 Respiratory 18 15 16 Rate Blood Pressure 120/61 (mmHg) O2 Sat by Pulse 98 Oximetry Oxygen Devices in Use Now: Nasal Cannula Appearance: appears tired resting in bed, no acute distress Eyes: No Scleral Icterus Ears/Nose/Mouth/Throat: Clear Oropharnyx, Mucous Membranes Moist Neck: NL Appearance and Movements; NL JVP, Trachea Midline Respiratory: Symmetrical Chest Expansion and Respiratory Effort, Clear to Auscultation, - - diminshed in the bases bilat. Cardiovascular: NL Sounds; No Murmurs; No JVD, No Edema Abdominal: NL Sounds; No Tenderness; No Distention Extremities: No Edema, No Clubbing, Cyanosis Skin: No Rash or Ulcers, - - PAULO drain with moderate of serosang drainage Neurological: Alert and Oriented x 3 Nutrition: Taking PO's Result Diagrams: 11/15/18 06:02 11/15/18 06:02 Assess/Plan/Problems-Billing Assessment: - Patient Problems (1) Status post lumbar surgery Current Visit: Yes Status: Acute Code(s): Z98.890 - OTHER SPECIFIED POSTPROCEDURAL STATES SNOMED Code(s): 108383592 Comment: Management per Neurosurgery PT/OT per Neurosurgery- OOB to chair as tolerated HOB up 30 degrees DVT prop per neurosurgery - Patient with moderate amt of drainage from PAULO drain - H/H trending down, - suspect this is related to surgical blood loss , hemodilution and blood loss from the PAULO drains. Will check occult stool to r/o other source of blood loss. - will transfuse 2 units PRBC's today - will repeat CBC, BMP in the AM - encouraged oob and ambulation as per neurosurgery recommendations - ortiz cath removed (2) Acute blood loss as cause of postoperative anemia Current Visit: Yes Status: Acute Code(s): D62 - ACUTE POSTHEMORRHAGIC ANEMIA SNOMED Code(s): 24533655865126806 Comment: - - H/H trending down, - suspect this is related to surgical blood loss , hemodilution and blood loss from the PAULO drains. - Will check occult stool to r/o other source of blood loss. - will transfuse 2 units PRBC's today do to continued blood loss from PAULO drains - will repeat CBC, BMP in the AM (3) Tachycardia Current Visit: Yes Status: Acute Code(s): R00.0 - TACHYCARDIA, UNSPECIFIED SNOMED Code(s): 2722511 Comment: Patient with mild tachycardia 91-100 - H/H decreased today 7.6/23 - denies shortness of breath or chest pain - supect that post op pain , anemia are factors are contributing to her tacycardia - will continue monitor and repeat cbc in the AM (4) HTN (hypertension) Current Visit: Yes Status: Acute Code(s): I10 - ESSENTIAL (PRIMARY) HYPERTENSION SNOMED Code(s): 96081826 Comment: verapamil (5) GERD (gastroesophageal reflux disease) Current Visit: Yes Status: Acute Code(s): K21.9 - GASTRO-ESOPHAGEAL REFLUX DISEASE WITHOUT ESOPHAGITIS SNOMED Code(s): 089954325 Comment: protonix (6) DVT prophylaxis Current Visit: Yes Status: Acute Code(s): ISZ5247 - SNOMED Code(s): 025245500 Comment: SCD's - will add heparin subQ today - the patient has had a drop in her H/H since surgery - this is most likely r/t blood loss in surgery, blood loss from PAULO drains and hemodilution - patient has a significant risk of devloping DVT's given lack of mobility and recent long surgery - i feel that starting chemical prophylaxis at this point outways the risk of bleeding - spoke to Neurosurgery Dr. Rivas who has recommended heparin subQ - will check occult stool and monitor for signs of bleeding (7) Full code status Current Visit: Yes Status: Acute Code(s): Z78.9 - OTHER SPECIFIED HEALTH STATUS SNOMED Code(s): 397687563 Status and Disposition: disposition per neurosurgery
[2018-11-14] MEDS: HYDROmorphone INJ1* 1 MG/ML SYRINGE IV PRN (17:06)
[2018-11-14] MEDS: [UNRECOGNIZED DRUG - OTHER] PO SCH (21:14)
[2018-11-14] MEDS: Magnesium Hydroxide LIQ* 30 ML UDC PO SCH (21:14)
[2018-11-14] MEDS: traZODone TAB* 50 MG TAB PO SCH (21:15)
[2018-11-14] MEDS: LevoCETirizine TAB (NF) 5 MG TAB PO SCH (21:15)
[2018-11-14] MEDS: Zolpidem TAB* 10 MG PO SCH (21:15)
[2018-11-14] MEDS: Docusate CAP* 100 MG PO SCH (21:15)
[2018-11-14] MEDS: Senna TAB PO PRN (22:50)
[2018-11-15] MEDS: Heparin VIAL(*) 5000 UNITS/ML VIAL (FIVE THOUSAND) SUBCUT SCH ×3 (05:45→23:01)
[2018-11-15] MEDS: HYDROcodone/ACETAMIN 5-325 MG* 1 TAB PO PRN ×5 (05:48→23:45)
[2018-11-15 06:16] LABS: Hematocrit 27 % (35-47); Mean Corpuscular HGB Conc 33 g/dl (31-36); Mean Corpuscular Hemoglobin 29 pg (27-31); Mean Corpuscular Volume 87 fL (80-97); Mean Platelet Volume 7.1 fL (7.4-10.4); Platelet Count 210 10^3/ul (150-450); Red Blood Count 3.13 10^6/ul (4.00-5.40); Red Cell Distribution Width 16 % (10.5-15)
[2018-11-15 06:37] LABS: BUN/Creatinine Ratio 20.8 (8-20); Calcium 8.4 mg/dL (8.6-10.3); EGFR African American 140.1 (>60); EGFR Non-African American 115.8 (>60); Potassium 3.8 mmol/L (3.5-5.0)
[2018-11-15] MEDS: HYDROmorphone INJ1* 1 MG/ML SYRINGE IV PRN (07:40)
[2018-11-15] MEDS: Magnesium Hydroxide LIQ* 30 ML UDC PO SCH ×2 (09:08→21:00)
[2018-11-15] MEDS: [UNRECOGNIZED DRUG - OTHER] PO SCH ×2 (09:08→21:00)
[2018-11-15] MEDS: Cetirizine* 10 MG TAB PO SCH (09:09)
[2018-11-15] MEDS: Pantoprazole TAB * 40 MG TAB PO SCH (09:09)
[2018-11-15] MEDS: Docusate CAP* 100 MG PO SCH ×2 (09:09→21:00)
[2018-11-15] MEDS: Verapamil TAB* 80 MG PO SCH (10:22)
--- NOTE | 2018-11-15 13:28 | PN ---
Progress Note - Progress Note Date of Service: 11/15/18 SOAP: Subjective: []No events ON. Patient more comfortable today. Able to ambulate to lobby, feels that preoperative back and LLE pain is resolved. Some incisional pain well controlled. Received 2 RBC yesterday. Feels better. No LE pain. [place] out. Voids. Flatus present. Tolerates PO well. IS at bedside. Objective: [] VSS, Afebrile. Wound s,c,d. Drain in place output noted. PAULO drain removed. Catheter appeared to be intact. Patient tolerated procedure well. AAOx3 DESIRAE, CN II-XII grossly intact Motor 5/5 all extremities, except LLE 4+/5, Left hip flexion 4+/5. Sensory grossly intact to light touch. Left thigh sensation is improved c/w preop. Assessment: [] 63 yof POD#3 T11-S1 PL arthrodesis, Left L3-4 TLIF and revision of previous instrumentation. Plan: [] Monitor VS, Neurochecks Pain control. Ht improved. PT eval, OOB with assistance BAKARI carrillo Nutrition consult. Bowel regimen DVT prophylaxis SQ Heparin. SCDs/ Encourage IS. Appreciate IM care Zelalem Heller MD
--- NOTE | 2018-11-15 15:13 | PN ---
Subjective Date of Service: 11/15/18 Interval History: feeling frustrated today about meals, reports dietary is sending food that she is allergic to. Patient reports that she was able to get oob and ambulate in the hallway yesterday. states that she was up to the chair. encouraged the patient to get up to the chair with all meals and sit upright for a couple of hours at a time. Denies chest pain or shortness of breath. denies abd pain , n/v/d. states that initial post op leg pain has completely resolved. Family History: Unchanged from Admission Social History: Unchanged from Admission Past Medical History: Unchanged from Admission Objective Active Medications: Hydrocodone Bitart/Acetaminophen ([place] 5-325 Tab*) 2 tab PO Q4H PRN PRN Reason: PAIN Last Admin: 11/15/18 14:02 Dose: 2 tab Cetirizine HCl (Zyrtec*) 10 mg PO QAM VISHAL; Protocol Last Admin: 11/15/18 09:09 Dose: 10 mg Cyclobenzaprine HCl (Flexeril Tab*) 10 mg PO TID PRN PRN Reason: muscle spasm Last Admin: 11/13/18 23:04 Dose: 10 mg Docusate Sodium (Colace Cap*) 100 mg PO BID [facility] Last Admin: 11/15/18 09:09 Dose: 100 mg Heparin Sodium (Porcine) (Heparin Vial(*)) 5,000 units SUBCUT Q8HR [facility] Last Admin: 11/15/18 14:03 Dose: 5,000 units Hydromorphone HCl (Dilaudid Inj1s*) 0.1 mg IV Q1H PRN PRN Reason: PAIN Last Admin: 11/15/18 07:40 Dose: 0.1 mg Levocetirizine (Xyzal Tab (Nf)) 5 mg PO BEDTIME [facility] Last Admin: 11/14/18 21:15 Dose: Not Given Magnesium Hydroxide (Milk Of Magnesia Liq*) 30 ml PO BID [facility] Last Admin: 11/15/18 09:08 Dose: 30 ml Magnesium Hydroxide (Milk Of Magnesia Liq*) 30 ml PO BID PRN PRN Reason: CONSTIPATION Pto:* (Bariatric Fusion Vitamins 2 Tab) 2 tab PO BID [facility] Last Admin: 11/15/18 09:08 Dose: 2 tab Pantoprazole Sodium (Protonix Tab*) 40 mg PO DAILY [facility] Last Admin: 11/15/18 09:09 Dose: 40 mg Polyethylene Glycol/Electrolytes (Miralax*) 17 gm PO DAILY PRN PRN Reason: CONSTIPATION Last Admin: 11/14/18 14:10 Dose: 17 gm Senna (Senokot Tab*) 1 tab PO BEDTIME PRN PRN Reason: CONSTIPATION Last Admin: 11/14/18 22:50 Dose: 1 tab Trazodone HCl (Desyrel Tab*) 50 mg PO BEDTIME [facility] Last Admin: 11/14/18 21:15 Dose: 50 mg Verapamil HCl (Calan Tab*) 40 mg PO QAM [facility] Last Admin: 11/15/18 10:22 Dose: 40 mg Zolpidem Tartrate (Ambien Tab*) 10 mg PO BEDTIME [facility] Last Admin: 11/14/18 21:15 Dose: 10 mg Vital Signs - 8 hr 11/15/18 11/15/18 11/15/18 07:14 07:40 07:48 Temperature Pulse Rate 94 Respiratory 13 20 18 Rate Blood Pressure 153/72 (mmHg) O2 Sat by Pulse 93 93 Oximetry 11/15/18 11/15/18 11/15/18 09:49 10:03 10:04 Temperature Pulse Rate Respiratory 20 18 18 Rate Blood Pressure (mmHg) O2 Sat by Pulse Oximetry 11/15/18 11/15/18 11:39 14:02 Temperature 97.3 F Pulse Rate 92 Respiratory 16 18 Rate Blood Pressure 127/55 (mmHg) O2 Sat by Pulse 89 Oximetry Oxygen Devices in Use Now: Nasal Cannula Appearance: tearful resting in bed , no acute distress Eyes: No Scleral Icterus Ears/Nose/Mouth/Throat: Clear Oropharnyx, Mucous Membranes Moist Neck: NL Appearance and Movements; NL JVP, Trachea Midline Respiratory: Symmetrical Chest Expansion and Respiratory Effort, Clear to Auscultation Cardiovascular: NL Sounds; No Murmurs; No JVD, No Edema Abdominal: NL Sounds; No Tenderness; No Distention Extremities: No Edema, No Clubbing, Cyanosis Skin: No Rash or Ulcers, - - dressing dry and intact to back, PAULO drain with a small amt of seroang drainage Neurological: Alert and Oriented x 3 Nutrition: Taking PO's Result Diagrams: 11/16/18 06:02 11/16/18 06:02 Assess/Plan/Problems-Billing Assessment: Ms. Jarrett is a 63-year-old female with past medical history significant for chronic back pain, anxiety, history of left kidney cancer status post resection , history of back fusion, left-sided sciatica who [place] [facility] [place] for L4-S1 hardware revision with Dr. Heller. - Patient Problems (1) Status post lumbar surgery Current Visit: Yes Status: Acute Code(s): Z98.890 - OTHER SPECIFIED POSTPROCEDURAL STATES SNOMED Code(s): 979205284 Comment: Management per Neurosurgery PT/OT per Neurosurgery- OOB to chair as tolerated HOB up 30 degrees DVT prop per neurosurgery - Patient with moderate amt of drainage from PAULO drain - H/H was trending down, - suspect this is related to surgical blood loss , hemodilution and blood loss from the PAULO drains. Will check occult stool to r/o other source of blood loss.- now improved after blood transfusion. - will repeat CBC, BMP in the AM - encouraged oob and ambulation as per neurosurgery recommendations (2) Acute blood loss as cause of postoperative anemia Current Visit: Yes Status: Acute Code(s): D62 - ACUTE POSTHEMORRHAGIC ANEMIA SNOMED Code(s): 51406418578602957 Comment: - - H/H trending down, - suspect this is related to surgical blood loss , hemodilution and blood loss from the PAULO drains. - now improved after transfusion - Will check occult stool to r/o other source of blood loss. - will repeat CBC, BMP in the AM (3) Tachycardia Current Visit: Yes Status: Acute Code(s): R00.0 - TACHYCARDIA, UNSPECIFIED SNOMED Code(s): 6993807 Comment: Patient with mild tachycardia 90's today- improved after blood transfusion - denies shortness of breath or chest pain - supect that post op pain , anemia are factors are contributing to her tacycardia - will continue monitor (4) HTN (hypertension) Current Visit: Yes Status: Acute Code(s): I10 - ESSENTIAL (PRIMARY) HYPERTENSION SNOMED Code(s): 54611334 Comment: verapamil (5) GERD (gastroesophageal reflux disease) Current Visit: Yes Status: Acute Code(s): K21.9 - GASTRO-ESOPHAGEAL REFLUX DISEASE WITHOUT ESOPHAGITIS SNOMED Code(s): 427867954 Comment: protonix (6) DVT prophylaxis Current Visit: Yes Status: Acute Code(s): EUJ5172 - SNOMED Code(s): 263216042 Comment: SCD's - will continue heparin subQ - the patient has had a drop in her H/H since surgery - this is most likely r/t blood loss in surgery, blood loss from PAULO drains and hemodilution - patient has a significant risk of devloping DVT's given lack of mobility and recent long surgery - i feel that starting chemical prophylaxis at this point outways the risk of bleeding - spoke to Neurosurgery Dr. Rivas who has recommended heparin subQ - will check occult stool- ordered and monitor for signs of bleeding (7) Full code status Current Visit: Yes Status: Acute Code(s): Z78.9 - OTHER SPECIFIED HEALTH STATUS SNOMED Code(s): 696050647 Status and Disposition: disposition per neurosurgery
[2018-11-15] MEDS: Zolpidem TAB* 10 MG PO SCH (21:00)
[2018-11-15] MEDS: Senna TAB PO PRN (21:01)
[2018-11-15] MEDS: LevoCETirizine TAB (NF) 5 MG TAB PO SCH (21:01)
[2018-11-15] MEDS: traZODone TAB* 50 MG TAB PO SCH (23:01)
[2018-11-16] MEDS: HYDROcodone/ACETAMIN 5-325 MG* 1 TAB PO PRN ×4 (05:52→20:39)
[2018-11-16] MEDS: Heparin VIAL(*) 5000 UNITS/ML VIAL (FIVE THOUSAND) SUBCUT SCH ×3 (05:53→22:03)
[2018-11-16 06:17] LABS: Hematocrit 28 % (35-47); Hemoglobin 9.5 g/dl (12.0-16.0); Mean Corpuscular HGB Conc 34 g/dl (31-36); Mean Corpuscular Hemoglobin 29 pg (27-31); Mean Corpuscular Volume 87 fL (80-97); Mean Platelet Volume 7.1 fL (7.4-10.4); Platelet Count 256 10^3/ul (150-450); Red Blood Count 3.24 10^6/ul (4.00-5.40); Red Cell Distribution Width 16 % (10.5-15); White Blood Count 6.7 10^3/ul (3.5-10.8)
[2018-11-16 06:40] LABS: Calcium 8.3 mg/dL (8.6-10.3); EGFR African American 149.8 (>60); EGFR Non-African American 123.8 (>60); Potassium 3.8 mmol/L (3.5-5.0)
[2018-11-16] MEDS: Docusate CAP* 100 MG PO SCH ×2 (08:43→20:38)
[2018-11-16] MEDS: Pantoprazole TAB * 40 MG TAB PO SCH (08:43)
[2018-11-16] MEDS: Cetirizine* 10 MG TAB PO SCH (08:43)
[2018-11-16] MEDS: Magnesium Hydroxide LIQ* 30 ML UDC PO SCH ×3 (08:43→20:38)
[2018-11-16] MEDS: [UNRECOGNIZED DRUG - OTHER] PO SCH ×2 (08:43→20:40)
[2018-11-16] MEDS: Verapamil TAB* 80 MG PO SCH (08:46)
--- NOTE | 2018-11-16 16:26 | PN ---
Progress Note - Progress Note Date of Service: 11/16/18 SOAP: Subjective: []No events ON. Patient quite comfortable today. Able to ambulate , preoperative back and LLE pain is resolved. Some incisional pain. No LE pain. Voids. Flatus present. Tolerates PO well. IS at bedside. Would like to go home with some assistance if possible. Objective: []VSS, Afebrile. AAOx3 DESIRAE, CN II-XII grossly intact Motor 5/5 all extremities, except LLE 4+/5, Left hip flexion 4+/5. Sensory grossly intact to light touch. Left thigh sensation is improved c/w preop. Assessment: []63 yof POD#4 T11-S1 PL arthrodesis, Left L3-4 TLIF and revision of previous instrumentation. Plan: [] Monitor VS, Neurochecks Pain control. PT eval, OOB with assistance DC planning Nutrition consult. Bowel regimen DVT prophylaxis SQ Heparin. SCDs/ Encourage IS. Appreciate IM care Zelalem Helelr MD
--- NOTE | 2018-11-16 17:51 | PN ---
Subjective Date of Service: 11/16/18 Interval History: Pt states that she continues to have pain in lower back that she states feels like a sunburn. She rates pain at 7/10. She states that she is eating and drinking OK. She is ambulating with walker and assistance. She is urinating well, but is unsure of last BM. She states that she has difficulty with defecation and is working with her PCP on this issue. She denies CP, SOB, cough , fever/chills, calf pain. She has b/l LE edema, which she states is her baseline. Family History: Unchanged from Admission Social History: Unchanged from Admission Past Medical History: Unchanged from Admission Objective Active Medications: Hydrocodone Bitart/Acetaminophen ([place] 5-325 Tab*) 2 tab PO Q4H PRN Cetirizine HCl (Zyrtec*) 10 mg PO QAM VISHAL; Protocol Cyclobenzaprine HCl (Flexeril Tab*) 10 mg PO TID PRN Docusate Sodium (Colace Cap*) 100 mg PO BID VISHAL Heparin Sodium (Porcine) (Heparin Vial(*)) 5,000 units SUBCUT Q8HR VISHAL Hydromorphone HCl (Dilaudid Inj1s*) 0.1 mg IV Q1H PRN Levocetirizine (Xyzal Tab (Nf)) 5 mg PO BEDTIME VISHAL Magnesium Hydroxide (Milk Of Magnesia Liq*) 30 ml PO BID VISHAL Magnesium Hydroxide (Milk Of Magnesia Liq*) 30 ml PO BID PRN Pto:* (Bariatric Fusion Vitamins 2 Tab) 2 tab PO BID VISHAL Pantoprazole Sodium (Protonix Tab*) 40 mg PO DAILY VISHAL Polyethylene Glycol/Electrolytes (Miralax*) 17 gm PO DAILY PRN Senna (Senokot Tab*) 1 tab PO BEDTIME PRN Trazodone HCl (Desyrel Tab*) 50 mg PO BEDTIME VISHAL Verapamil HCl (Calan Tab*) 40 mg PO QAM VISHAL Zolpidem Tartrate (Ambien Tab*) 10 mg PO BEDTIME VISHAL Vital Signs: Temp Pulse Resp BP Pulse Ox 98.5 F 90 18 128/56 99 11/16/18 15:40 11/16/18 15:40 11/16/18 16:12 11/16/18 15:40 11/16/18 16:00 Oxygen Devices in Use Now: Nasal Cannula Appearance: Pt is sitting in chair with LE elevated. She appears to be in no acute distress. Eyes: No Scleral Icterus, PERRLA Ears/Nose/Mouth/Throat: NL Teeth, Lips, Gums, Clear Oropharnyx, Mucous Membranes Moist Neck: NL Appearance and Movements; NL JVP, Trachea Midline Respiratory: Symmetrical Chest Expansion and Respiratory Effort, Clear to Auscultation Cardiovascular: RRR, - - Systolic murmur; S1/S2 noted; no JVD Abdominal: NL Sounds; No Tenderness; No Distention, No Hepatosplenomegaly Lymphatic: No Cervical Adenopathy Extremities: No Clubbing, Cyanosis, - - B/l LE nonpitting edema; b/l calves nontender to palpation Neurological: Alert and Oriented x 3 Result Diagrams: 11/16/18 06:02 11/16/18 06:02 Assess/Plan/Problems-Billing Assessment: Ms. Jarrett is a 63-year-old female with past medical history significant for chronic back pain, anxiety, history of left kidney cancer status post resection , history of back fusion, left-sided sciatica who presented to [facility] [place] on 11/12/18 for L4-S1 hardware revision with Dr. Heller. - Patient Problems (1) Status post lumbar surgery Comment: -Management per Neurosurgery -PT/OT per Neurosurgery- OOB to chair as tolerated -HOB up 30 degrees -DVT ppx per neurosurgery (2) Acute blood loss as cause of postoperative anemia Comment: -H/H trending up -Will check occult stool -Repeat CBC, BMP in the AM (3) Tachycardia Comment: -Patient with mild tachycardia 90's today -Denies shortness of breath or chest pain -Supect that post op pain, anemia are factors are contributing to her tacycardia -IVF 1 L ordered -Will continue monitor (4) GERD (gastroesophageal reflux disease) Comment: -Contolled -Continue protonix (5) HTN (hypertension) Comment: -Controlled -Continue verapamil (6) DVT prophylaxis Comment: -SCD's, Heparin subQ -Check stool for occult blood (7) Full code status Status and Disposition: Inpatient. Dispo per neuro.
[2018-11-16] MEDS ORDERED: NS 0.9% 1000 ML** 1,000 ML IV SCH (18:15)
[2018-11-16] MEDS: LevoCETirizine TAB (NF) 5 MG TAB PO SCH (20:41)
[2018-11-16] MEDS: traZODone TAB* 50 MG TAB PO SCH (22:03)
[2018-11-16] MEDS: Zolpidem TAB* 10 MG PO SCH (22:03)
[2018-11-17] MEDS: HYDROcodone/ACETAMIN 5-325 MG* 1 TAB PO PRN ×6 (00:42→22:19)
[2018-11-17 05:23] LABS: Hematocrit 27 % (35-47); Hemoglobin 8.8 g/dl (12.0-16.0); Mean Corpuscular HGB Conc 33 g/dl (31-36); Mean Corpuscular Hemoglobin 29 pg (27-31); Mean Corpuscular Volume 88 fL (80-97); Mean Platelet Volume 6.8 fL (7.4-10.4); Platelet Count 285 10^3/ul (150-450); Red Blood Count 3.06 10^6/ul (4.00-5.40); Red Cell Distribution Width 15 % (10.5-15); White Blood Count 6.3 10^3/ul (3.5-10.8)
[2018-11-17] MEDS: Heparin VIAL(*) 5000 UNITS/ML VIAL (FIVE THOUSAND) SUBCUT SCH ×3 (05:30→21:04)
[2018-11-17 05:39] LABS: BUN/Creatinine Ratio 15.7 (8-20); Calcium 8.4 mg/dL (8.6-10.3); EGFR African American 146.4 (>60); Potassium 3.8 mmol/L (3.5-5.0)
[2018-11-17] MEDS: Magnesium Hydroxide LIQ* 30 ML UDC PO SCH ×2 (09:33→21:02)
[2018-11-17] MEDS: Docusate CAP* 100 MG PO SCH ×2 (09:33→21:01)
[2018-11-17] MEDS: [UNRECOGNIZED DRUG - OTHER] PO SCH ×2 (09:33→21:01)
[2018-11-17] MEDS: Cetirizine* 10 MG TAB PO SCH (09:33)
[2018-11-17] MEDS: Pantoprazole TAB * 40 MG TAB PO SCH (09:33)
[2018-11-17] MEDS: Verapamil TAB* 80 MG PO SCH (09:42)
--- NOTE | 2018-11-17 11:44 | PN ---
Subjective Date of Service: 11/17/18 Interval History: Pt still c/o pain, rating it at 6/10, although states it is better than when she started. She has not had a BM since prior to admission. Pt denies CP/ pleuritic CP, SOB, cough, fever, abd pain, n/v/d. She c/o constipation. She states she has not been eating well, as she is allergic to many foods and can only have turkey here. She states that she is walking well. Family History: Unchanged from Admission Social History: Unchanged from Admission Past Medical History: Unchanged from Admission Objective Active Medications: Hydrocodone Bitart/Acetaminophen ([place] 5-325 Tab*) 2 tab PO Q4H PRN Cetirizine HCl (Zyrtec*) 10 mg PO QAM VISHAL; Protocol Cyclobenzaprine HCl (Flexeril Tab*) 10 mg PO TID PRN Docusate Sodium (Colace Cap*) 100 mg PO BID VISHAL Heparin Sodium (Porcine) (Heparin Vial(*)) 5,000 units SUBCUT Q8HR VISHAL Hydromorphone HCl (Dilaudid Inj1s*) 0.1 mg IV Q1H PRN Levocetirizine (Xyzal Tab (Nf)) 5 mg PO BEDTIME VISHAL Magnesium Hydroxide (Milk Of Magnesia Liq*) 30 ml PO BID VISHAL Magnesium Hydroxide (Milk Of Magnesia Liq*) 30 ml PO BID PRN Pto:* (Bariatric Fusion Vitamins 2 Tab) 2 tab PO BID VISHAL Pantoprazole Sodium (Protonix Tab*) 40 mg PO DAILY VISHAL Polyethylene Glycol/Electrolytes (Miralax*) 17 gm PO DAILY PRN Senna (Senokot Tab*) 1 tab PO BEDTIME PRN Trazodone HCl (Desyrel Tab*) 50 mg PO BEDTIME VISHAL Verapamil HCl (Calan Tab*) 40 mg PO QAM VISHAL Zolpidem Tartrate (Ambien Tab*) 10 mg PO BEDTIME VISHAL Vital Signs: Temp Pulse Resp BP Pulse Ox 97.8 F 99 16 131/74 98 11/17/18 07:32 11/17/18 07:32 11/17/18 09:32 11/17/18 07:32 11/17/18 07:32 Oxygen Devices in Use Now: None Appearance: Pt is laying on her side in bed. She wakes easily and responds to questioning. She is tearful, but in no acute distress. Eyes: No Scleral Icterus, PERRLA Ears/Nose/Mouth/Throat: NL Teeth, Lips, Gums, Clear Oropharnyx, Mucous Membranes Moist Neck: NL Appearance and Movements; NL JVP, Trachea Midline Respiratory: Symmetrical Chest Expansion and Respiratory Effort, Clear to Auscultation Cardiovascular: NL Sounds; No Murmurs; No JVD, - - Tachycardic. Chest wall nontender to palpation. Abdominal: NL Sounds; No Tenderness; No Distention, No Hepatosplenomegaly Extremities: No Clubbing, Cyanosis, - - B/l LE edema, nonpitting and chronic Neurological: Alert and Oriented x 3, - - Surgical dressing is CDI. Result Diagrams: 11/17/18 13:53 11/17/18 05:15 Assess/Plan/Problems-Billing Assessment: Ms. Jarrett is a 63-year-old female with past medical history significant for chronic back pain, anxiety, history of left kidney cancer status post resection , history of back fusion, left-sided sciatica who [place] [facility] [place] for L4-S1 hardware revision with Dr. Heller. - Patient Problems (1) Status post lumbar surgery Comment: -Management per Neurosurgery -PT/OT per Neurosurgery- OOB to chair as tolerated -HOB up 30 degrees -DVT ppx per neurosurgery (2) Acute blood loss as cause of postoperative anemia Comment: -H/H trending back down -Will check occult stool -Repeat H/H this afternoon and in a.m. (3) Tachycardia Comment: -Patient with mild tachycardia 90's today -Denies shortness of breath, chest pain, chest nontender to palpation, no fever , cough -Supect that post op pain, anemia are factors contributing to her tacycardia -R/o PE with CTA, d/t tachycardia, decreased ambulation, recent surgery; CTA negative for PE -Will continue monitor (4) GERD (gastroesophageal reflux disease) Comment: -Contolled -Continue protonix (5) HTN (hypertension) Comment: -Controlled -Continue verapamil (6) DVT prophylaxis Comment: -SCD's, Heparin subQ -Check stool for occult blood (7) Full code status Status and Disposition: Inpatient. Dispo per neuro.
--- NOTE | 2018-11-17 12:07 | PN ---
Progress Note - Progress Note Date of Service: 11/17/18 SOAP: Subjective: []No events ON. Patient doing well today. Able to ambulate , preoperative back and LLE pain is resolved. Some incisional pain. No LE pain. Voids. Flatus present. Tolerates PO well. Wants to go home. Objective: []VSS, Afebrile. AAOx3 DESIRAE, CN II-XII grossly intact Motor 5/5 all extremities, except LLE 4+/5, Left hip flexion 4+/5. Sensory grossly intact to light touch. Left thigh sensation is improved c/w preop. Assessment: [] 63 yof POD#5 T11-S1 PL arthrodesis, Left L3-4 TLIF and revision of previous instrumentation. Plan: []Monitor VS, Neurochecks Pain control. PT eval, OOB with assistance DC planning Nutrition consulted. Bowel regimen DVT prophylaxis SQ Heparin. SCDs/ Encourage IS. Anticipate DC soon, possibly today. Appreciate IM care Zelalem Heller MD
[2018-11-17] MEDS ORDERED: Iodixanol* (CONTRAST) 320 MG/ML 100 ML SDV IV ONE (12:15)
[2018-11-17 14:12] LABS: Hematocrit 29 % (35-47); Hemoglobin 9.8 g/dl (12.0-16.0)
[2018-11-17] MEDS: Cyclobenzaprine TAB* 10 MG PO PRN (21:00)
[2018-11-17] MEDS: traZODone TAB* 50 MG TAB PO SCH (21:00)
[2018-11-17] MEDS: Zolpidem TAB* 10 MG PO SCH (21:02)
[2018-11-17] MEDS ORDERED: diPHENhydraMINE PO* 25 MG PO PRN (22:26)
[2018-11-17] MEDS: LevoCETirizine TAB (NF) 5 MG TAB PO SCH (22:37)
[2018-11-18] MEDS: HYDROcodone/ACETAMIN 5-325 MG* 1 TAB PO PRN ×3 (03:57→12:23)
[2018-11-18] MEDS: Heparin VIAL(*) 5000 UNITS/ML VIAL (FIVE THOUSAND) SUBCUT SCH (05:37)
[2018-11-18 06:57] LABS: Hematocrit 28 % (35-47); Hemoglobin 9.3 g/dl (12.0-16.0)
--- NOTE | 2018-11-18 08:16 | PN ---
Progress Note - Progress Note Date of Service: 11/18/18 SOAP: Subjective: [Pt s/p revision of previous lumbar fusion and extension T11-S1 Has been ambulating with assistance of a walker Eating and drinking well Denies numbness, tingling, and pain in the bilateral lower extremities Mild incisional discomfort Pain controlled with PO medication Denies fever, chills, headache] Objective: [ Vital Signs: Temp Pulse Resp BP Pulse Ox 98.9 F 105 18 135/66 96 11/18/18 03:59 11/18/18 03:59 11/18/18 06:03 11/18/18 03:59 11/18/18 03:59 General: Alert and NAD Neuro: Motor and sensory intact Incision: Intact, dressing in place, clean and dry. No swelling or tenderness ] Assessment: [Satisfactory post-op. Will benefit from rehab] Plan: [1. Discharge to [facility] rehab today 2. Discharge instructions and follow up discussed]
[2018-11-18] MEDS: Docusate CAP* 100 MG PO SCH (08:22)
[2018-11-18] MEDS: Magnesium Hydroxide LIQ* 30 ML UDC PO SCH (08:22)
[2018-11-18] MEDS: Cetirizine* 10 MG TAB PO SCH (08:22)
[2018-11-18] MEDS: Pantoprazole TAB * 40 MG TAB PO SCH (08:25)
[2018-11-18] MEDS: Verapamil TAB* 80 MG PO SCH (08:25)
[2018-11-18] MEDS: [UNRECOGNIZED DRUG - OTHER] PO SCH (08:26)
--- NOTE | 2018-11-18 12:06 | DS ---
DISCHARGE SUMMARY: DATE OF ADMISSION: 11/12/18 DATE OF DISCHARGE: 11/18/18 ATTENDING PHYSICIAN: Dr. Heller * (dictated by KATHRYN Catnu). DISCHARGE DIAGNOSES: 1. Degenerative disk disease, L3-4, spondylolisthesis with instability. 2. Previous L4 through S1 fusion. 3. Gastroesophageal reflux disease. 4. Hypertension. SPECIAL PROCEDURES: Revision of L4 to S1 arthrodesis with removal of prior instrumentation and placement of new pedicle screws. T11 to S1 arthrodesis with instrumentation and placement of bilateral T11, T12, L1, and right L2 and bilateral L3 pedicle screws with posterolateral fusion and left L3-4 TLIF, posterior osteotomies, lysis of adhesions with stereotactic navigation and intraoperative monitoring. HOSPITAL COURSE: This 63-year-old female was seen in the office with complaints of severe back pain and a history of L4 through S1 fusion related to a work injury. Surgery was [place] [address] Miranda. She had followed with Dr. Orozco and undergone multiple different treatments and therapies which had not improved her symptoms. She had also tried physical therapy without improvement. Surgical intervention was discussed with the patient and she decided to proceed with this option. On the day of admission, she was taken to the OR where under general anesthesia, a revision of previous L4 through S1 fusion that was extension of fusion to T11, L3-4 TLIF operation was carried out. Postoperatively, she was doing well, although complained of significant low back and incisional pain. She was able to get up and ambulate the following day. On postop day 1, CT of the lumbar and thoracic spine showed good hardware placement and spine alignment. She was evaluated by Physical Therapy and was up out of bed, ambulating with assistance. The wound drains continued to function well with good output. The hospital medicine service was consulted for comanagement of her other medical history. On postop day 2, the Armenta catheter was discontinued. The wound drain continued to function well and hemoglobin and hematocrit were decreased, so the Hospital Medicine recommended transfusing 2 units of packed red blood cells which did take place. On postop day 3, the wound drains were discontinued. She continued to work with Physical Therapy for the next 2 days. She is ambulating around the nursing unit with assistance of a walker. She is eating, drinking, and voiding without difficulty. Pain continues to be controlled with p.o. pain medications. On postop day 6, she is discharged to [facility] for further strengthening and therapies. DISCHARGE INSTRUCTIONS: Discharge instructions were discussed with the patient and information was provided. She will be seen in the office by Dr. Heller in approximately 1 week. DISCHARGE MEDICATIONS RECOMMEND: 1. [place] 5/325 mg 2 tabs by mouth every 4 hours as needed for pain. 2. Cyclobenzaprine 10 mg p.o. t.i.d. p.r.n. muscle spasm. KATHRYN CANTU [id number]/[facility] #: [id number] NINFA
[2018-11-18 12:19] VITALS: BP 147/62
== END 2018-11-18 13:50 | DRG 304 ==
LOC: AA 11-12 05:46 → SSU 11-12 21:34
PROVIDERS: ADMIT Neurological Surgery; ATTEND Neurological Surgery
PROC: 0SG10J1 Fusion of 2 or more Lumbar Vertebral Joints with Synthetic Substitute, Posterior Approach, Posterior Column, Open Approach (ICD-10-PCS; 2018-11-12)
PROC: 0RG60J1 Fusion of Thoracic Vertebral Joint with Synthetic Substitute, Posterior Approach, Posterior Column, Open Approach (ICD-10-PCS; 2018-11-12)
PROC: 0RGA0J1 Fusion of Thoracolumbar Vertebral Joint with Synthetic Substitute, Posterior Approach, Posterior Column, Open Approach (ICD-10-PCS; 2018-11-12)
PROC: 0SG30J1 Fusion of Lumbosacral Joint with Synthetic Substitute, Posterior Approach, Posterior Column, Open Approach (ICD-10-PCS; 2018-11-12)
PROC: 0SB20ZZ Excision of Lumbar Vertebral Disc, Open Approach (ICD-10-PCS; 2018-11-12)
PROC: 4A11X4G Monitoring of Peripheral Nervous Electrical Activity, Intraoperative, External Approach (ICD-10-PCS; 2018-11-12)
PROC: 8E0WXBZ Computer Assisted Procedure of Trunk Region (ICD-10-PCS; 2018-11-12)
PROC: 0SP304Z Removal of Internal Fixation Device from Lumbosacral Joint, Open Approach (ICD-10-PCS; 2018-11-12)
PROC: 0SG007J Fusion of Lumbar Vertebral Joint with Autologous Tissue Substitute, Posterior Approach, Anterior Column, Open Approach (ICD-10-PCS; principal; 2018-11-12 07:30)
PROC: 30233N1 Transfusion of Nonautologous Red Blood Cells into Peripheral Vein, Percutaneous Approach (ICD-10-PCS; 2018-11-14)
DX: M43.16 Spondylolisthesis, lumbar region (principal); D62 Acute posthemorrhagic anemia; M47.26 Other spondylosis with radiculopathy, lumbar region; M53.2X6 Spinal instabilities, lumbar region; I10 Essential (primary) hypertension; J44.9 Chronic obstructive pulmonary disease, unspecified; K21.9 Gastro-esophageal reflux disease without esophagitis; F32.9 Major depressive disorder, single episode, unspecified; E78.00 Pure hypercholesterolemia, unspecified; L50.1 Idiopathic urticaria; G89.29 Other chronic pain; E66.9 Obesity, unspecified; F41.9 Anxiety disorder, unspecified; M75.110 Incomplete rotator cuff tear or rupture of unspecified shoulder, not specified as traumatic; M81.0 Age-related osteoporosis without current pathological fracture; J32.9 Chronic sinusitis, unspecified; I73.9 Peripheral vascular disease, unspecified; M19.90 Unspecified osteoarthritis, unspecified site; L72.3 Sebaceous cyst; M54.32 Sciatica, left side; G47.00 Insomnia, unspecified; N28.1 Cyst of kidney, acquired; I89.0 Lymphedema, not elsewhere classified; K59.00 Constipation, unspecified; R00.0 Tachycardia, unspecified; Z68.37 Body mass index [BMI] 37.0-37.9, adult; Z98.84 Bariatric surgery status; Z88.6 Allergy status to analgesic agent; Z88.1 Allergy status to other antibiotic agents; Z88.0 Allergy status to penicillin; Z88.8 Allergy status to other drugs, medicaments and biological substances; Z98.1 Arthrodesis status; Z85.528 Personal history of other malignant neoplasm of kidney; Z90.49 Acquired absence of other specified parts of digestive tract; Z98.49 Cataract extraction status, unspecified eye; Z82.49 Family history of ischemic heart disease and other diseases of the circulatory system; Z82.0 Family history of epilepsy and other diseases of the nervous system
CPT/HCPCS: 36415; 71275; 72080; 72128; 72131; 76000; 80048; 85014; 85018; 85025; 85027; 85610; 86850; 86900; 86901; 86922; 88300; A9270-GY; C1713; C1776; C9359; G8978-GP-CK; G8978-GP-CL; G8979-GP-CH; G8979-GP-CI; J0330; J1100; J1170; J1644; J2250; J2405; J2704; J2765; J3010; J3370; P9040; Q9967

== ENCOUNTER → 2019-01-05 17:07 | Emergency (ER) | payer MEDICARE, OTHER ==
[2019-01-05 17:17] VITALS: BP 176/91
--- OUTSIDE RECORDS SUMMARY | 2019-01-05 17:37 | XMS REPORT | Continuity of Care Document ---
:1955 External Reference #:[id number] Author Name Jack Carlee Care Team Providers Name Role Phone Rob Aguilar MD Primary Care Physician Unavailable Payers Date Identification Numbers Payment Provider Subscriber Policy Number: [id number] Medicare Melly Jarrett PayID: [id number] [address] [place] [address] Policy Number: [id number] [email or web address] (Oon) Melly Jarrett Group Number: [id number] [address] [address] PayID: [id number] [place] [address] Effective: 2015 Policy Number: [id number] [facility] Medicare Solutions Melly Jarrett Expires: 2016 Group Number: [id number] [address] [address] PayID: [id number] [place] [address] Onset: 1989 Policy Number: [id number] [employer] Melly Jarrett Group Number: [phone] [address] Group Name: [id number] [place] [address] PayID: [id number] Expires: 2015 Policy Number: [id number] Medicare Melly Jarrett PayID: [id number] [address] [place] [address] Expires: 2015 Policy Number: [id number] [employer] Juan Jarrett Group Number: [id number] [address] PayID: [id number] [place] [address] Effective: 1989 Policy Number: [id number] [employer] Melly Jarrett Group Name: Workers' Compensation [address] [address] [place] [address] Advance Directives Description No Information Available Problems [...] Unknown Never Smoked Cigarettes Smoking Status Reviewed: 12/09/18 Never Smoked Cigarettes ETOH Use Denies alcohol [...] Form Strength Qnty SIG Indications Ordering Provider Hydrocodone Active Tablets 5-325mg 30tabs 1-2 every M43.16 Vassilios Bitartrate/Jose Enrique 019 6-8 hours Dimopomelvin, taminophen as needed MD pain [place] Active Tablets 5-325mg 30tabs take 1-2 M43.16 Vassilios 019 tabs by kailash Heller MD every 6-8 hours as needed for pain. Z48.89 Cyclobenzaprine 11/23/2018 Active Tablets 10mg 21tabs take 1 Z48.89 Vassilios HCL tablet by Neelimaulos, mouth up MD to three times a day as needed Zolpidem Tartrate Active Tablets 10mg 1/2 to 1 Unknown tab by mouth every night at bedtime as needed Cetirizine HCL Active Tablets 10mg 1 by mouth Unknown every day Trazodone HCL Active Tablets 50mg 1 tablet Unknown at bedtime as needed Bariatric Fusion Active Chewtabs 2 bid Unknown Paroxetine HCL Active Tablets 40mg 1 by mouth Unknown every day Furosemide Active Tablets 40mg 1 by mouth Unknown every day Omeprazole Active Capsules 20mg [address] every day Levocetirizine Active Tablets 5mg 1 every Unknown Dihydrochloride evening Verapamil HCL Active Tablets 40mg 1 tab Unknown daily Hair Skin & Nails 07/26/2015 Hx Chewtabs 1 po qd [place], 01/30/2017 [facility] Glucosamine 07/26/2015 Hx Capsules 2 po qd [place], 01/30/2017 [facility] Eszopiclone 05/31/2015 Hx Tablets 3mg 30tabs 1 tab each [place] - night at [facility], 01/01/2017 bedtime by M.DTristan mouth as needed insomnia. Diltiazem HCL ER 05/31/2015 Hx Caps ER 300mg 30caps 1 by mouth Massimo - 24HR every day [facility], 01/01/2017 MRian Meloxicam 05/31/2015 Hx Tablets 15mg 30tabs once daily [place] - with food [facility], 01/01/2017 MRian Embeda 05/31/2015 Hx Capsules 30-1. take 2 in [place] - ER 2mg the Am [facility], 01/01/2017 M.DTristan Furosemide 05/31/2015 Hx Tablets 40mg 90tabs 1 by mouth Massimo - every day [facility], 07/19/2015 M.DTristan Metoprolol 05/31/2015 Hx Tablets 25mg 180tabs 1 by mouth Massimo Tartrate - twice a [facility], 07/12/2015 day M.D. Oxycodone HCL ER 05/31/2015 Hx Tab ER 10mg 100tabs 1 tab by Massimo - 12H mouth Sarah, 07/10/2018 Abuse-Det every 4-6 M.D. hours Paroxetine HCL 05/31/2015 Hx Tablets 20mg 30tabs 1 by mouth Massimo - every day Sarah, 01/01/2017 M.D. Cyclobenzaprine 05/31/2015 Hx 10mg once at [place] - bedtime Sarah, 01/01/2017 M.DTristan Esomeprazole 05/31/2015 Hx Capsules 40mg 30caps 1 by mouth Massimo Magnesium - DR every day Sarah, 01/01/2017 M.DTristan Gabapentin 05/31/2015 Hx Capsules 300mg 120caps 3 by mouth Massimo - mitchel Smith, 01/01/2017 night at M.D. bedtime Montelukast Hx Tablets 10mg 1 by mouth Unknown Sodium - every day 01/01/2017 Calcium 600 + D Hx Tablets 600-2 1 by mouth Unknown - 00mg- every day 01/30/2017 Unit Xanax Hx Tablets 0.25m one by Unknown - g mouth up 08/10/2015 to three times daily as needed for anxiety Symbicort Hx Aerosol 160-4 unit puffs Unknown - .5mcg twice a 01/01/2017 /Act day Zestoretic Hx Tablets 20-12 take one Unknown - .5mg tablet by 07/12/2015 mouth one time daily Prednisone Hx Tablets 10mg 30mg daily Unknown - for 1 07/12/2015 week, 20mg daily for 1 week, 10 mg daily for 1 week Furosemide Hx Tablets 20mg 1 po daily Unknown - 09/14/2018 Multivitamins Hx Capsules 1 by mouth Unknown - every day 07/10/2018 Flaxseed Oil Hx Capsules 1000m 1 by mouth Unknown - g every day 07/10/2018 Grimes-3 Hx Capsules 450mg 1 po qd Unknown - 01/01/2017 Vitamin B12 Hx 1000m 1 po qd Unknown - cg 01/01/2017 Biotin Hx Capsules 1000m 1 po qd Unknown - cg 07/10/2018 Folic Acid Hx Tablets 800mc 1 by mouth Unknown - g every day 07/10/2018 Bee Pollen Hx Capsules 550mg daily Unknown - 01/30/2017 Magnesium Hx Tablets 250mg 1 by mouth Unknown - every day 01/31/2017 Vitamin D3 Hx Capsules 1000U 1 by mouth Unknown - nit every day 01/01/2017 Lisinopril-Hydroc Hx Tablets 20-12 1 po bid Unknown hlorothiazide - .5mg 01/30/2017 Potassium Hx Tablets 10Meq 1 by mouth Unknown Chloride ER - ER every day 08/09/2015 Doxycycline Hx Capsules 100mg 1 po bid Berenice Aguilar - for MD Rob 01/30/2017 infection in legs OS-Keyur Calcium + Hx Tablets 500-2 1 tablet Unknown D3 - 00mg- daily 07/10/2018 Unit Dexamethasone Hx Tablets 4mg 1 tabs by Unknown - mouth 01/01/2017 every 12 hours Levocetirizine Hx Tablets 5mg 1 by mouth Unknown Dihydrochloride - every day 01/01/2017 Lisinopril Hx Tablets 10mg 1 by mouth Unknown - every day 07/10/2018 Magnesium Hx Capsules 500mg once a day Unknown - 07/10/2018 Omeprazole Hx Capsules 40mg 1 by mouth Unknown - DR every day 07/10/2018 Tobramycin Hx Solution 0.3% Unknown - 01/01/2017 Tramadol HCL Hx Tablets 50mg Unknown - 09/14/2018 Turmeric Hx Unknown - 01/01/2017 Verapamil HCL Hx Tablets 120mg 1 by mouth Unknown - daily 07/10/2018 Xyzal Hx Tablets 5mg 1 by mouth Unknown - every day 07/10/2018 Fluoxetine HCL Hx Capsules 20mg once daily Unknown (PMDD) - 09/14/2018 Prednisone Hx Tablets 10mg 2 bid Unknown - 10/19/2018 Medications Administered in Office Medication Date Status Form Strength Qnty SIG Indications Ordering Provider Celestone 3 mg Administered Injection Massimo and 3mg 016 Andrew Smith Inj, Administered Injection Keaton Kuhn Regadenoson, 015 Pagan, 0.1 MG M.DTristan, FACC, FASNC Inj, Administered Injection Herberth S. Regadenoson, 015 Fields, DO 0.1 MG FACC Technetium TC Administered Injection Keaton Kuhn 99M 015 Ej TetrofAndrew mayen, FACC, Per Unit Dose FASNC Up To 40 Millicuries Technetium TC Administered Injection Herberth S. 99M 015 Fields, DO Tetrofosmin, FACC Per Unit Dose Up To 40 Millicuries Depomedrol Administered Injection Massimo 80MG 015 Andrew Smith Immunizations Description No Information Available Vital Signs Date Vital Result Comment 12/09/2018 10:03am Height 63 inches 5'3" Weight 205.00 lb BP Systolic Sitting 140 mmHg BP Diastolic Sitting 70 mmHg Pain Level 6 BMI (Body Mass Index) 36.3 kg/m2 11/23/2018 1:19pm Height 63 inches 5'3" Weight 205.00 lb BP Systolic Sitting 104 mmHg BP Diastolic Sitting 60 mmHg Body Temperature 99.0 F Pain Level 10 BMI (Body Mass Index) 36.3 kg/m2 11/23/2018 1:14pm Height 63 inches 5'3" 10/26/2018 9:34am Height 63 inches 5'3" Weight [...] H/L Range Note Type & Screen 10/29/2018 [facility] Patient Blood A Positive [address] [place] [address] [phone] Antibody Screen NEGATIVE CBC Auto Diff 10/19/2018 [facility] White Blood 7.9 10^3/uL N 3.5-10.[address] [place] [address] [phone] Red Blood Count 4.55 10^6/uL N 4.00-5.40 [...] Cells % 0 Comp Metabolic Panel 10/19/2018 [facility] Sodium 136 mmol/L N 135-[address] [place] [address] [phone] Potassium 3.5 mmol/L N 3.5-5.0 Chloride 98 [...] >60 Egfr 100.0 >60 2 Inr/Protime 10/19/2018 [facility] Inr 0.96 N 0.77-1.[address] [place] [address] [phone] Urinalysis Profile 10/19/2018 [facility] Urine Color Straw [address] [place] [address] [phone] Urine Appearance Clear Urine Specific [place] 1.004 Low 1.010-1.030 Urine pH 7.0 N [...] Present Abnormal Absent Urine Culture And 10/19/2018 [facility] Urine Culture SEE RESULT [address] [place] [address] [phone] Laboratory test 08/08/2015 [facility] B-Type 103 pg/mL High [address] [place] [address] Peptide BNP [phone] 1 OTHER SPONDYLOSIS WITH RADICULOPATHY, LUMBAR REGIO [...] [address]: Doron Gambino MD Acct: [id number] Unit: [id number] AGE: 63 Location: LAB Re10/19/18 SEX: F Status: REG REF SPEC: [id number] JOAQUIN: 10/19/18-[address] [facility] [address]: Doron Gambino MD REQ: [id number] RECD: 10/19/18 STATUS: COMP _ SOURCE: URINE SPDESC: ORDERED: Urine Culture Procedure Result Reported Site Urine Culture Final 10/20/18- 1209 ML No growth of clinically significant organisms * ML - Main Lab . END OF REPORT DEPARTMENT OF PATHOLOGY, [address] [place] [address] Juan Spaulding M.D. Director [facility] # [id number] 5 >100 to <200 pg/mL: likely compensated congestive heart failure (CHF) 200 to 400 pg/mL: likely moderate CHF >400 pg/mL: likely moderate to severe CHF Procedures Date Code Description Status 11/12/2018 Allograft For Spine Surgery, Morselized Completed 11/12/2018 Autograft For Spine Surgery (Incls Harvesting The Graft) Completed 11/12/2018 Osteotomy Lumbar Spine One Segment Post/Posterolateral Completed Approach 11/12/201854939 Osteotomy Lumbar Spine One Segment Post/Posterolateral Completed Approach 11/12/201878773 Arthrodsis, Post, Addl Segment Completed 11/12/201858218 Arthrodsis, Post, Addl Segment Completed 11/12/201891256 Arthrodesis,Combined Posterior Or Posterolateral Tech Completed 11/12/201842255 Arthrodesis,Combined Posterior Or Posterolateral Tech Completed 11/12/2018 72328 Posterior Segmental Instrumentation 7 To 12 Vertebral Completed Segments 11/12/2018 90985 Posterior Segmental Instrumentation 7 To 12 Vertebral Completed Segments 11/12/2018 88312 Application Of Spinal Device Completed 11/12/2018 36571 Application Of Spinal Device Completed 11/12/2018 69797 Stereotactic Computer-Assisted, Spinal Completed 10/19/2018 77759 EKG Tracing & Interpretation Completed 10/19/2018 57411 EKG, Interpretation Only Completed 01/31/2017 41931 EKG Tracing & Interpretation Completed 09/13/2015 76391 Inject Tendon Sheath Or Ligament Aponeurosis Eg Plantar Completed Fascia 08/18/2015 36306 Stress Test Completed 08/18/2015 73096 Myocardial Perfusion Imaging Tomographic (Spect) Multiple Completed Studies 08/18/2015 91065 Myocardial Perfusion Imaging Tomographic (Spect) Multiple Completed Studies 08/10/2015 48547 ECHO Transthoracic, Real-Time 2D With Doppler And Color Completed Flow 07/26/2015 09497 EKG Tracing & Interpretation Completed 05/31/2015 02977 Inject/Drain Joint/Bursa Major W/O US Completed Encounters Type Date Location Provider Dx Diagnosis Office Visit 11/17/2018 [facility] Z98.890 Other specified 8:47a clive Urbano PA postprocedural Hospitalists states R00.0 Tachycardia, unspecified D62 Acute posthemorrhagic anemia I10 Essential (primary) hypertension Office 11/16/2018 [facility] Z98.890 Other specified Visit 8:47a clive Urbano PA postprocedural Hospitalists states R00.0 Tachycardia, unspecified D62 Acute posthemorrhagic anemia Office Visit 11/15/2018 [facility] Z98.890 Other specified 8:46a Assclive michel NP postprocedural Hospitalists states R00.0 Tachycardia, unspecified D62 Acute posthemorrhagic anemia Office Visit 11/14/2018 [facility] Z98.890 Other specified 8:46a Assocclive, AMBER postprocedural Hospitalists states R00.0 Tachycardia, unspecified D62 Acute posthemorrhagic anemia Office Visit 11/13/2018 [facility] Z98.890 Other specified 8:45a Assoc,pc [place], SHOE FOLDER postprocedural Hospitalists states R00.0 Tachycardia, unspecified I10 Essential (primary) hypertension K21.9 Gastro-esophageal reflux disease without esophagitis Office Visit 11/12/2018 [facility] Z98.890 Other specified 8:44a Assoc,clive [place], SHOE FOLDER postprocedural Hospitalists states I10 Essential (primary) hypertension K21.9 Gastro-esophageal reflux disease without esophagitis Office 09/14/2018 Neurosurgery Vassilios M47.26 Other spondylosis Visit 1:30p Services Of Shree Heller MD with [...] Norris M.D. lumbar region Office Visit 01/31/2017 [facility] Herberth Sutherland Z01.810 Encounter for 2:20p [...] of right shoulder Office Visit 08/23/2015 2:00p [facility] Herberth Sutherland R06.02 Shortness of Of [employer] Services Donnie, DO breath FACC R60.0 Localized edema E66.8 Other obesity I10 Essential (primary) hypertension Office Visit 07/26/2015 2:00p [facility] Herberth Sutherland R06.02 Shortness of Of [facility] Donnie, DO breath FACC R73.01 Impaired fasting glucose E78.5 Hyperlipidemia, unspecified Office Visit 07/12/2015 10:30a Orthopedic Massimo Smith, M25.511 Pain in right Services Of M.DTristan shoulder C.M.A. Office Visit 05/31/2015 10:30a Orthopedic Massimo Smith M25.511 Pain in right Services Of M.DTristan shoulder C.M.A. Plan of Treatment Future Appointment(s):12/25/2018 11:30 am - Lida Heller MD at Neurosurgery Services Of [facility]12/09/2018 - Lida Heller MDZ48.89 Encounter for other specified surgical wfgldjlpnG50.16 Spondylolisthesis, lumbar regionNew Medication:Hydrocodone Bitartrate/Acetaminophen 5-325 mg - 1-2 every 6-8 hours as needed painNew Therapy:Physical TherapyFollow up:RV in 2-4 weeks
== END | disposition left against medical advice (07) ==
LOC: ED 17:07
DX: R10.12 Left upper quadrant pain (principal); R07.89 Other chest pain; Z53.21 Procedure and treatment not carried out due to patient leaving prior to being seen by health care provider
CPT/HCPCS: 93005

== ENCOUNTER 2019-06-07 16:47 | Emergency (ER) | payer MEDICARE, OTHER ==
[2019-06-07 17:02] VITALS: BP 161/93
--- NOTE | 2019-06-07 17:16 | UC ---
UC General HPI - HPI Summary HPI Summary: 64-year-old woman comes in with a chief complaint of shortness of breath. Started 5 days ago when she was walking around in her home. Activity makes it worse. She is chronic pedal edema and she is on furosemide daily. Denies any wheezing. She does when asked admit to having chest pressure. Patient believes it shortness of breath is related to having a pneumonia shot done on the same day. No rash no difficult swallowing. No fevers no chills. - History of Current Complaint Chief Complaint: UCRespiratory Stated Complaint: SOB Time Seen by Provider: 06/07/19 16:54 Pain Intensity: 0 - Allergy/Home Medications Allergies/Adverse Reactions: Allergies Allergy/AdvReac Type Severity Reaction Status Date / Time codeine Allergy Severe Hives Verified 06/07/19 16:55 morphine Allergy Hives Verified 06/07/19 16:55 ondansetron [From Zofran] Allergy Hives Verified 06/07/19 16:55 Penicillins Allergy Hives Verified 06/07/19 16:55 aspirin AdvReac Unknown AVOIDS Verified 06/07/19 16:55 SINCE BARIATRIC SURGERY NSAIDS (Non-Steroidal AdvReac Unknown AVOIDS Verified 06/07/19 16:55 Anti-Inflamma SINCE BARIATRIC SURGERY amoxicillin [From Augmentin] AdvReac Itching Verified 06/07/19 16:55 clavulanic acid AdvReac Itching Verified 06/07/19 16:55 [From Augmentin] floxacin Allergy Rash Uncoded 06/07/19 16:55 "ALL ANTIBIOTICS" AdvReac See Comment Uncoded 06/07/19 16:55 Home Medications: Home Medications Bariatric Fusion 2 tab BID 06/07/19 [History Confirmed 06/07/19] Cetirizine* [ZyrTEC 10 MG TAB*] 1 tab QPM 06/07/19 [History Confirmed 06/07/19] Doxepin (NF) 2 tab BEDTIME 06/07/19 [History Confirmed 06/07/19] Famotidine [Acid Controller] 1 tab TID 06/07/19 [History Confirmed 06/07/19] Furosemide TAB* [Lasix TAB*] 40 mg PO QAM 06/07/19 [History Confirmed 06/07/19] Gabapentin CAP(*) [Neurontin 300 CAP(*)] 1 tab BID 06/07/19 [History Confirmed 06/07/19] Lactulose* 15 ml DAILY PRN 06/07/19 [History Confirmed 06/07/19] Omeprazole CAP(NF) [PriLOSEC CAP(NF)] 20 mg PO QAM 06/07/19 [History Confirmed 06/07/19] Trazodone HCl 1 tab BEDTIME 06/07/19 [History Confirmed 06/07/19] Verapamil HCl 1 tab QAM 06/07/19 [History Confirmed 06/07/19] Zolpidem TAB* [Ambien*] 1 tab QPM 06/07/19 [History Confirmed 06/07/19] predniSONE TAB* [Deltasone TAB*] 1 tab DAILY 06/07/19 [History Confirmed ] PMH/Surg Hx/FS Hx/Imm Hx Previously Healthy: Yes Cardiovascular History: Cardiac Disease, Hypertension, Congestive Heart Failure GI/ History: Gastroesophageal Reflux Psychological History: Anxiety - Surgical History Surgical History: Yes Surgery Procedure, Year, and Place: BARIACTRIC SURGERY 03/24. CHOLYCYSTECTOMY . SINUS SURGERY. CARPAL TUNNEL REPAIR BILAT. BACK SURGERY (L4/L5/S1) 1992. CATARACT SURGERY. TONSILLECTOMY. RIGHT KNEE AUG 2017. LEFT KNEE JANUARY 2018. top teeth extraction 04/2019. Back Surgery (spinal fusion) November 2018 - Family History Known Family History: Positive: Cardiac Disease, Hypertension - Social History Alcohol Use: None Substance Use Type: None Smoking Status (MU): Never Smoked Tobacco Have You Smoked in the Last Year: No - Immunization History Most Recent Influenza Vaccination: 2018 Most Recent Tetanus Shot: UTD Most Recent Pneumonia Vaccination: 2018 Review of Systems All Other Systems Reviewed And Are Negative: Yes Constitutional: Positive: Other - SEE HPI Skin: Positive: Negative Eyes: Positive: Negative ENT: Positive: Negative Respiratory: Positive: Shortness Of Breath Cardiovascular: Positive: Chest Pain Gastrointestinal: Positive: Negative Motor: Positive: Negative Neurovascular: Positive: Negative Musculoskeletal: Positive: Edema Neurological: Positive: Negative Psychological: Positive: Negative Is Patient Immunocompromised?: No Physical Exam Triage Information Reviewed: Yes Appearance: Well-Appearing, No Pain Distress, Well-Nourished Vital Signs: Initial Vital Signs Temp 98.2 F 06/07/19 16:55 Pulse 84 06/07/19 16:55 Resp 18 06/07/19 16:55 BP 161/93 09/30/19 16:55 Pulse Ox 100 06/07/19 16:55 Vital Signs Reviewed: Yes Eye Exam: Normal Eyes: Positive: Conjunctiva Clear Neck: Positive: Supple Respiratory: Positive: Lungs clear, Normal breath sounds, No respiratory distress Cardiovascular: Positive: RRR Musculoskeletal: Positive: Edema @ - B/L; NO CALF TENDERNESS TO PALPATION Neurological: Positive: Alert Psychological: Positive: Age Appropriate Behavior Skin Exam: Normal Diagnostics - EKG Cardiac Rate: NL - AT 1713 Cardiac Rhythm: Sinus: Normal - 80BPM Ectopy: None ST Segment: Normal Course/Dx - Course Course Of Treatment: Environmental Studies Faculty Member: Israel Gonzalez ([id number]) Laundry Room Attendant: SCOOTER (NUANCE) Report Date: 06/07/2019 17:11:00 Report Status: Final Start of Report Content Patient Name: BOOGIE PATEL Medical Record#: [id number] Ordering Physician: Mc Thayer MD Acct.#: [id number] : 1955 Age : 64 Sex: F Location: [facility] Exam Date: 06/07/191710 ADM Status : PRE ER Order Information: CHEST PA LAT 2 VWS Accession Number: [id number] CPT : 02525 INDICATION: Shortness of breath and "chest heaviness" COMPARISON: Most recent comparison chest x-rays dated October 19, 2018 TECHNIQUE: PA and lateral views of the chest were obtained. FINDINGS: Postsurgical changes include transpedicular lower thoracic and lumbar posterior atilio fixation. The heart and mediastinum are normal in size and contour. The lungs are grossly clear. There is no evidence of large pleural effusion. Visualized bones are normal for the patient's age. There is no radiographic evidence of free air beneath the diaphragm IMPRESSION: No radiographic evidence of acute cardiopulmonary disease. <Electronically signed by Israel Gonzalez MD in OV> 06/07/191734 Dictated By : Israel Gonzalez MD Dictated Date/Time: 06/07/191733 Transcribed Date/Time: 06/07 Copy to: CC:Rob Aguilar MD; Mc Thayer MD Imaging - [facility] Imaging - [facility] Imaging - [facility] [id number] [place] [address] [place], [place] [id number] [place] [id number] ph ([phone]) ph ([phone]) ph ([phone]) ===== End of Report Content I discussed the patient's vital signs her EKG and chest x-ray with her. I recommended further evaluation in the emergency department. Patient reports she will talk to her to get a ride to the emergency department. - Diagnoses Provider Diagnosis: Shortness of breath, Chest pressure Discharge ED - Sign-Out/Discharge Documenting (check all that apply): Patient Departure All imaging exams completed and their final reports reviewed: Yes - Discharge Plan Condition: Stable Disposition: HOME-RECOMMEND TO ED Patient Education Materials: Shortness of Breath (ED), Chest Pain (ED) Referrals: Rob Aguilar MD [Primary Care Provider] - Additional Instructions: GO DIRECTLY TO THE EMERGENCY DEPARTMENT FOR FURTHER EVALUATION AND CARE. - Billing Disposition and Condition Condition: STABLE Disposition: Home-Recommend to ED
--- OUTSIDE RECORDS SUMMARY | 2019-06-07 18:06 | XMS REPORT | Continuity of Care Document ---
:1955 External Reference #:[id number] Author Name Kevin Viera MD Address [address] [facility] [address] [place] [phone] Care Team Providers Name Role Phone Rob Aguilar MD - Family Care Team Information Business Analysis Analyst Medicine Manish Saldaña MD - Rheumatology Care Team Information Business Analysis Analyst Problems Active Problems Provider Date Allergic rhinitis due to pollen Kevin Viera MD Onset: 06/26/2016 Allergic rhinitis Kevin Viera MD Onset: 06/26/2016 Cough GAVIN King Onset: 07/11/2016 Posterior rhinorrhea GAVIN King Onset: 11/14/2016 Allergic urticaria KATHRYN Brown Onset: 03/10/2018 Angioneurotic edema, subsequent Kevin Viera MD Onset: 04/14/2018 encounter Allergy to other foods Kevin Viera MD Onset: 04/29/2018 Idiopathic urticaria KATHRYN Brown Onset: 09/10/2018 Lumbar radiculopathy Onset: 03/16/2018 Lumbar spondylosis Onset: 10/10/2015 Shoulder joint pain Onset: 05/31/2015 Common variable agammaglobulinemia Kevin Viera MD Onset: 06/01/2019 Social History Type Date Description Comments Sex Unknown Tobacco Use Start: Unknown Never Smoked Cigarettes Smoking Status Reviewed: 06/01/19 Never Smoked Cigarettes Tobacco Use Start: Unknown Patient has never smoked Allergies, Adverse Reactions, Alerts Active Allergies Reaction Severity Comments Date Floxin 06/26/2016 Amoxicillin Urticaria 05/06/2017 Montelukast 11/17/2017 Penicillin hives all over 01/20/2018 Hydrocodone 09/10/2018 Zofran 09/10/2018 Oxycodone 09/10/2018 Inactive Allergies Hydrocodone Swelling 05/26/2019 Morphine 05/26/2019 Oxycodone Itching 05/26/2019 Penicillin Hives 05/26/2019 Zofran Itching 05/26/2019 Medications Active Medications SIG Qnty Indications Ordering Provider Date Famotidine 1 by mouth 90tabs Manish Saldaña MD 05/24/2019 20mg Tablets every day as needed Doxepin HCL 1-2 caps three 60caps Christopher A. 11/10/2018 25mg Capsules times a day as MD Maximiliano needed Levocetirizine take one tablet 30tabs L50.1 Christopher A. 10/07/2018 Dihydrochloride by mouth daily MD Maximiliano 5mg at bedtime Tablets Prednisone 6 tablets (30 36tabs Christopher A. 09/22/2018 5mg Tablets mg) by mouth MD Maximiliano twice a day x 3 days Cetirizine HCL Take 1 Tablet 30tabs L50.0 Christopher A. 04/29/2018 10mg By Mouth Once MD Maximiliano Tablets Daily AT Bedtime Benadryl Take 2 tabs 90tabs L50.0 Christopher A. 04/16/2018 25mg Tablets every 6 hours MD Maximiliano as needed. Epinephrine One dose 1units L50.0 [facility] A. 01/02/2018 0.3mg/0.3ML injected into MD Maximiliano Solution Auto-Inject lateral side of thigh. Repeat dose if needed after 5-15 minutes. Gabapentin Unknown 300mg Capsules Xolair Unknown 75mg/0.5ML Soln Prefill Syringe Doxycycline Hyclate Take 1 Tablet Unknown 100mg By Mouth Every Tablets 12 Hours For 14 Days Verapamil HCL 1 tab daily Unknown 40mg Tablets Furosemide 1 by mouth Unknown 40mg Tablets every day Trazodone HCL 1 tablet at Unknown 50mg bedtime as Tablets needed Omeprazole 1 by mouth Unknown 40mg Capsules every day Bariatric Fusion Unknown Chewtabs Verapamil HCL two per day Unknown 40mg Tablets Eq Omeprazole Unknown Magnesium 20mg Capsules Zolpidem Tartrate Unknown 10mg Tablets Furosemide Unknown 40mg Tablets Trazodone HCL Unknown 50mg Tablets Paroxetine HCL Rob Aguilar, 40mg MD Tablets Medications Administered in Office Medication SIG Qnty Indications Ordering Provider Date Allergy Injection 2 Or More Kevin Viera MD 06/01/2019 Injection Injection Omalizumab 5 MG Kevin Viera MD 05/25/2019 Injection Therapeutic, Prophylactic Or Kevin Viera MD 05/25/2019 Diagnostic Injection Subq/Im Injection Allergy Injection 2 Or More Kevin Viera MD 05/18/2019 Injection Allergy Injection 2 Or More Kevin Viera MD 05/11/2019 Injection Allergy Injection 2 Or More Kevin Viera MD 05/04/2019 Injection Allergy Injection 2 Or More Kevin Viera MD 04/27/2019 Injection Allergy Injection 2 Or More Kevin Viera MD 04/22/2019 Injection Injection Omalizumab 5 MG Kevin Viera MD 04/20/2019 Injection Therapeutic, Prophylactic Or Kevin Viera MD 04/20/2019 Diagnostic Injection Subq/Im Injection Allergy Injection 2 Or More Kevin Viera MD 04/13/2019 Injection Allergy Injection 2 Or More Kevin Viera MD 04/06/2019 Injection Allergy Injection 2 Or More Kevin Viera MD 03/30/2019 Injection Allergy Injection 2 Or More Kevin Viera MD 03/25/2019 Injection Injection Omalizumab 5 MG Kevin Viera MD 03/23/2019 Injection Therapeutic, Prophylactic Or Kevin Viera MD 03/23/2019 Diagnostic Injection Subq/Im Injection Allergy Injection 2 Or More Kevin Viera MD 03/16/2019 Injection Allergy Injection 2 Or More Kevin Viera MD 03/09/2019 Injection Allergy Injection 2 Or More Kevin Viera MD 03/02/2019 Injection Allergy Injection 2 Or More Kevin Viera MD 02/25/2019 Injection Injection Omalizumab 5 MG Kevin Viera MD 02/23/2019 Injection Therapeutic, Prophylactic Or Kevin Viera MD 02/23/2019 Diagnostic Injection Subq/Im Injection Allergy Injection 2 Or More Kevin Viera MD 02/16/2019 Injection Allergy Injection 2 Or More Kevin Viera MD 02/09/2019 Injection Allergy Injection 2 Or More Kevin Viera MD 02/04/2019 Injection Allergy Injection 2 Or More Kevin Viera MD 01/28/2019 Injection Injection Omalizumab 5 MG Kevin Viera MD 01/26/2019 Injection Therapeutic, Prophylactic Or Kevin Viera MD 01/26/2019 Diagnostic Injection Subq/Im Injection Injection Omalizumab 5 MG Kevin Viera MD 01/14/2019 Injection Injection Omalizumab 5 MG Injection 1 01/14/2019 Injection Therapeutic, Prophylactic Or Kevin Viera MD 01/14/2019 Diagnostic Injection Subq/Im Injection Therapeutic, Prophylactic Or Injection 1 01/14/2019 Diagnostic Injection Subq/Im Injection Injection Omalizumab 5 MG Kevin Viera MD 12/29/2018 Injection Therapeutic, Prophylactic Or Kevin Viera MD 12/29/2018 Diagnostic Injection Subq/Im Injection Injection Omalizumab 5 MG Kevin Viera MD 12/01/2018 Injection Therapeutic, Prophylactic Or Kevin Viera MD 12/01/2018 Diagnostic Injection Subq/Im Injection Injection Omalizumab 5 MG Kevin Viera MD 10/20/2018 Injection Therapeutic, Prophylactic Or Kevin Viera MD 10/20/2018 Diagnostic Injection Subq/Im Injection Injection Omalizumab 5 MG Kevin Viera MD 09/22/2018 Injection Therapeutic, Prophylactic Or Kevin Viera MD 09/22/2018 Diagnostic Injection Subq/Im Injection Injection Omalizumab 5 MG Kevin Viera MD 06/11/2018 Injection Therapeutic, Prophylactic Or Kevin Viera MD 06/11/2018 Diagnostic Injection Subq/Im Injection Injection Omalizumab 5 MG Kevin Viera MD 05/19/2018 Injection Therapeutic, Prophylactic Or Kevin Viera MD 05/19/2018 Diagnostic Injection Subq/Im Injection Benadryl (To 50 MG) Kevin Viera MD 04/14/2018 Injection Celestone (6 MG) Kevin Viera MD 04/14/2018 Injection Therapeutic, Prophylactic Or Kevin Viera MD 04/14/2018 Diagnostic Injection Subq/Im Injection Allergy Injection 2 Or More Kevin Viera MD 04/09/2018 Injection Allergy Injection Single Kevin Viera MD 03/31/2018 Injection Allergy Injection 2 Or More Kevin Viera MD 03/24/2018 Injection Allergy Injection 2 Or More Kevin Viera MD 03/19/2018 Injection Allergy Injection 2 Or More Kevin Viera MD 03/03/2018 Injection Allergy Injection 2 Or More Kevin Viera MD 02/24/2018 Injection Allergy Injection 2 Or More Kevin Viera MD 02/17/2018 Injection Allergy Injection 2 Or More Kevin Viera MD 02/10/2018 Injection Allergy Injection 2 Or More Kevin Viera MD 01/27/2018 Injection Allergy Injection 2 Or More eKvin Viera MD 01/20/2018 Injection Allergy Injection 2 Or More Kevin Viera MD 01/06/2018 Injection Allergy Injection 2 Or More Kevin Viera MD 12/30/2017 Injection Allergy Injection 2 Or More Kevin Viera MD 12/23/2017 Injection Allergy Injection 2 Or More Kevin Viera MD 12/16/2017 Injection Allergy Injection 2 Or More Kevin Viera MD 12/09/2017 Injection Allergy Injection 2 Or More Kevin Viera MD 12/04/2017 Injection Allergy Injection 2 Or More Kevin Viera MD 11/25/2017 Injection Allergy Injection 2 Or More Kevin Viera MD 11/18/2017 Injection Allergy Injection 2 Or More Kevin Viera MD 11/13/2017 Injection Celestone (6 MG) Kevin Viera MD 04/15/2017 Injection Therapeutic, Prophylactic Or Kevin Viera MD 04/15/2017 Diagnostic Injection Subq/Im Injection Immunizations CPT Code Status Date Vaccine Lot # 26624 Given 06/01/2019 Pneumococcal Vaccine 2Yrs Or Older [id number] Vital Signs Date Vital Result Comment 06/01/2019 2:12pm BP Systolic 142 mmHg BP Diastolic 80 mmHg Height 63 inches 5'3" Weight 210.00 lb BMI (Body Mass Index) 37.2 kg/m2 Heart Rate 97 /min Respiratory Rate 20 /min O2 % BldC Oximetry 96 % 05/24/2019 2:43pm Height 63 inches Weight 210.38 lb BMI (Body Mass Index) 37.3 kg/m2 Heart Rate 71 /min O2 % BldC Oximetry 98 % Results Test Date Facility Test Result H/L Range Note Laboratory 06/01/20 [facility] Order <pending> test finding 19 Laboratory 06/01/20 [facility] Order <pending> test finding 19 Lab Results 04/27/20 N2N/CCD Import Immunoglobulin G 598 mg/dL Abnormal 767-1590 1 19 Immunoglobulin M 49 mg/dL 37-286 Immunoglobulin A 35 mg/dL Abnormal 61-356 Tissue Transglutaminase IgG Ab <1.2 U/mL 2 Tissue Transglutaminase IgA Ab <1.2 U/mL 3 Gliadin IgA <10.0 U 4 Gliadin IgG <10.0 U 5 Immunoglobulin A 31 mg/dL Abnormal 61-356 Celiac Interpretation See Comment 6 [id number] See Below 7 [id number] See Below 8 Celiac Gene Pairs Present? No Celiac Gene Interpretation See Comment 9 Alicia Igg AB Reflex 04/27/2019 N2N/CCD Import SS-A/Ro Antibody <0.2 U 10 SS-B/La Antibody <0.2 U 11 Sm (Viera) IgG Antibody <0.2 U 12 EXPANSION JOINT FINISHER Antibody, IgG <0.2 U 13 Scl-70 (Scleroderma) Antibody <0.2 U 14 Simona-1 Antibody <0.2 U 15 Cardiolipin Igg/Igm 04/27/2019 N2N/CCD Import Phospholipid Ab IgM, < 9.4 MPL 16 S Phospholipid Ab IgG < 9.4 GPL 17 Lab Results 04/27/2019 N2N/CCD Import Complement C3 160 mg/dL 75-175 18 Complement C4 29 mg/dL 14-40 19 Anti Double Stranded Dna AB <12.3 Iu/ml 20 Immunoglobulin E (Ige) 10.1 kU/L 21 Anca AB Ser If 04/27/2019 N2N/CCD Import C-Anca Negative P-Anca Negative 22 Lab Results 04/27/2019 N2N/CCD Import Lyme Screen W/ Reflex To WB Negative Creatine Kinase(CK) 39 U/L 10-223 Aldolase 3.7 U/L 23 Hepatitis A AB Igm Negative Hepatitis B Core AB Igm Nonreactive Hepatitis B Surface Ag Negative HCV Index 0.00 s/c Hepatitis C Antibody Negative Lab Results 04/27/2019 N2N/CCD Import Immunoglobulin G 598 mg/dL Abnormal 767-1590 24 Immunoglobulin M 49 mg/dL 37-286 Immunoglobulin A 35 mg/dL Abnormal 61-356 Tissue Transglutaminase IgG Ab <1.2 U/mL 25 Tissue Transglutaminase IgA Ab <1.2 U/mL 26 Gliadin IgA <10.0 U 27 Gliadin IgG <10.0 U 28 Immunoglobulin A 31 mg/dL Abnormal 61-356 Celiac Interpretation See Comment 29 [id number] See Below 30 [id number] See Below 31 Celiac Gene Pairs Present? No Celiac Gene Interpretation See Comment 32 Alicia Igg AB Reflex 04/27/2019 N2N/CCD Import SS-A/Ro Antibody <0.2 U 33 SS-B/La Antibody <0.2 U 34 Sm (Viera) IgG Antibody <0.2 U 35 EXPANSION JOINT FINISHER Antibody, IgG <0.2 U 36 Scl-70 (Scleroderma) Antibody <0.2 U 37 Simona-1 Antibody <0.2 U 38 Cardiolipin Igg/Igm 04/27/2019 N2N/CCD Import Phospholipid Ab IgM, < 9.4 MPL 39 S Phospholipid Ab IgG < 9.4 GPL 40 Lab Results 04/27/2019 N2N/CCD Import Complement C3 160 mg/dL 75-175 41 Complement C4 29 mg/dL 14-40 42 Anti Double Stranded Dna AB <12.3 Iu/ml 43 Immunoglobulin E (Ige) 10.1 kU/L 44 Anca AB Ser If 04/27/2019 N2N/CCD Import C-Anca Negative P-Anca Negative 45 Lab Results 04/27/2019 N2N/CCD Import Lyme Screen W/ Reflex To WB Negative Creatine Kinase(CK) 39 U/L 10-223 Aldolase 3.7 U/L 46 Hepatitis A AB Igm Negative Hepatitis B Core AB Igm Nonreactive Hepatitis B Surface Ag Negative HCV Index 0.00 s/c Hepatitis C Antibody Negative 1 Test Performed by: [facility] [address] [place] [address] 2 Test Performed by: [facility] - [address] [address] 3 REFERENCE VALUE <4.0 (Negative) Test Performed by: [place] [address] 4 REFERENCE VALUE <20.0 (Negative) Test Performed by: [place] [address] 5 REFERENCE VALUE <20.0 (Negative) Test Performed by: [place] [address] 6 Negative serology. Celiac disease unlikely. However, approximately 10% of patients with celiac disease are seronegative. Also, patients who are already adhering to a gluten-free diet may be seronegative. If celiac disease is highly clinically suspected, consider HLA-DQ typing. Test Performed by: [place] [address] 7 Test Performed by: [place] [address] 8 REFERENCE VALUE <4.0 (Negative) Test Performed by: [place] [address] 9 REFERENCE VALUE <20.0 (Negative) Test Performed by: [place] [address] 10 Test Performed by: [place] [address] 11 REFERENCE VALUE <4.0 (Negative) Test Performed by: [facility] [address] 12 REFERENCE VALUE <20.0 (Negative) Test Performed by: [facility] [address] 13 REFERENCE VALUE <20.0 (Negative) Test Performed by: [place] [address] 14 REFERENCE VALUE <1.0 (Negative) 15 Negative serology. Celiac disease unlikely. However, approximately 10% of patients with celiac disease are seronegative. Also, patients who are already adhering to a gluten-free diet may be seronegative. If celiac disease is highly clinically suspected, consider HLA-DQ typing. Test Performed by: [facility] [place] [address] 16 Test Performed by: [place] [address] 17 REFERENCE VALUE <4.0 (Negative) Test Performed by: [place] [address] 18 Test Performed by: [facility] [place] [address] 19 REFERENCE VALUE <4.0 (Negative) Test Performed by: [address] [address] 20 REFERENCE VALUE <20.0 (Negative) Test Performed by: [facility] [employer] [address] [address] [place] [address] 21 REFERENCE VALUE <20.0 (Negative) Test Performed by: [facility] [employer] [place] [address] 22 REFERENCE VALUE <4.0 (Negative) Test Performed by: [facility] [employer] [place] [address] 23 REFERENCE VALUE <20.0 (Negative) Test Performed by: [facility] [employer] [place] [address] Test Performed by: [facility] [place] [address] 25 Test Performed by: [facility] [employer] [place], [place] [id number] 26 REFERENCE VALUE <4.0 (Negative) Test Performed by: [facility] [address] [address] 27 REFERENCE VALUE <20.0 (Negative) Test Performed by: [address] [address] 28 REFERENCE VALUE <20.0 (Negative) Test Performed by: [address] [address] 29 Negative serology. Celiac disease unlikely. However, approximately 10% of patients with celiac disease are seronegative. Also, patients who are already adhering to a gluten-free diet may be seronegative. If celiac disease is highly clinically suspected, consider HLA-DQ typing. Test Performed by: [address] [address] 30 Test Performed by: [address] [address] 31 REFERENCE VALUE <4.0 (Negative) Test Performed by: [address] [address] 32 REFERENCE VALUE <20.0 (Negative) Test Performed by: [address] [address] 33 Test Performed by: [address] [address] 34 REFERENCE VALUE <4.0 (Negative) Test Performed by: [facility] - [address] [address] 35 REFERENCE VALUE <20.0 (Negative) Test Performed by: [facility] [address] 36 REFERENCE VALUE <20.0 (Negative) Test Performed by: [facility] [address] 37 REFERENCE VALUE <1.0 (Negative) 38 Negative serology. Celiac disease unlikely. However, approximately 10% of patients with celiac disease are seronegative. Also, patients who are already adhering to a gluten-free diet may be seronegative. If celiac disease is highly clinically suspected, consider HLA-DQ typing. Test Performed by: [facility] [address] 39 Test Performed by: [facility] [address] 40 REFERENCE VALUE <4.0 (Negative) Test Performed by: [address] [address] 41 Test Performed by: [facility] [place] [address] 42 REFERENCE VALUE <4.0 (Negative) Test Performed by: [facility] [place] [address] 43 REFERENCE VALUE <20.0 (Negative) Test Performed by: [facility] - [address] [address] 44 REFERENCE VALUE <20.0 (Negative) Test Performed by: [facility] - [address] [address] 45 REFERENCE VALUE <4.0 (Negative) Test Performed by: [facility] - [address] [address] 46 REFERENCE VALUE <20.0 (Negative) Test Performed by: [address] [address] Procedures Date Code Description Status 06/01/2019 91400 Allergy Injection 2 Or More Completed 05/25/2019 63577 Therapeutic, Prophylactic Or Diagnostic Injection Subq/Im Completed 05/18/2019 78928 Allergy Injection 2 Or More Completed 05/11/2019 65243 Allergy Injection 2 Or More Completed 05/04/2019 14652 Allergy Injection 2 Or More Completed 04/27/2019 95377 Allergy Injection 2 Or More Completed 04/22/2019 33975 Allergy Injection 2 Or More Completed 04/20/2019 43773 Therapeutic, Prophylactic Or Diagnostic Injection Subq/Im Completed 04/13/2019 76505 Allergy Injection 2 Or More Completed 04/06/2019 72870 Allergy Injection 2 Or More Completed 03/30/2019 10153 Allergy Injection 2 Or More Completed 03/25/2019 22914 Allergy Injection 2 Or More Completed 03/23/2019 33879 Therapeutic, Prophylactic Or Diagnostic Injection Subq/Im Completed 03/16/2019 55479 Allergy Injection 2 Or More Completed 03/09/2019 28149 Allergy Injection 2 Or More Completed 03/02/2019 06912 Allergy Injection 2 Or More Completed 02/25/2019 84778 Allergy Injection 2 Or More Completed 02/23/2019 63892 Therapeutic, Prophylactic Or Diagnostic Injection Subq/Im Completed 02/16/2019 45188 Allergy Injection 2 Or More Completed 02/09/2019 79972 Allergy Injection 2 Or More Completed 02/04/2019 84670 Allergy Injection 2 Or More Completed 01/28/2019 78447 Allergy Injection 2 Or More Completed 01/26/2019 89350 Therapeutic, Prophylactic Or Diagnostic Injection Subq/Im Completed 01/18/2019 12695 Allergy Antigens Single Or Multiple Completed 01/14/2019 51149 Therapeutic, Prophylactic Or Diagnostic Injection Subq/Im Completed 01/14/2019 62800 Therapeutic, Prophylactic Or Diagnostic Injection Subq/Im Completed 12/29/2018 50920 Therapeutic, Prophylactic Or Diagnostic Injection Subq/Im Completed 12/01/2018 31275 Therapeutic, Prophylactic Or Diagnostic Injection Subq/Im Completed Medical Devices Description No Information Available Encounters Type Date Location Provider Dx Diagnosis Office Visit 03/16/2019 11:00a KATHRYN Rodriguez J30.1 Allergic rhinitis due to pollen J30.89 Other allergic rhinitis L50.1 Idiopathic urticaria L50.0 Allergic urticaria Z91.018 Allergy to other foods Assessments Date Code Description Provider 06/01/2019 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 Kevin Viera MD 06/01/2019 J30.1 Allergic rhinitis due to pollen Kevin Viera MD 06/01/2019 J30.89 Other allergic rhinitis Kevin Viera MD 05/25/2019 L50.1 Idiopathic urticaria Kevin Viera MD 05/25/2019 L50.1 Idiopathic urticaria Kevin Viera MD 05/18/2019 J30.1 Allergic rhinitis due to pollen Kevin Viera MD 05/18/2019 J30.89 Other allergic rhinitis Kevin Viera MD 05/11/2019 J30.1 Allergic rhinitis due to pollen Kevin Viera MD 05/11/2019 J30.89 Other allergic rhinitis Kevin Viera MD 05/04/2019 J30.1 Allergic rhinitis due to pollen Kevin Viera MD 05/04/2019 J30.89 Other allergic rhinitis Kevin Viera MD 04/27/2019 J30.1 Allergic rhinitis due to pollen Kevin Viera MD 04/27/2019 J30.89 Other allergic rhinitis Kevin Viera MD 04/22/2019 J30.1 Allergic rhinitis due to pollen Kevin Viera MD 04/22/2019 J30.89 Other allergic rhinitis Kevin Viera MD 04/20/2019 L50.1 Idiopathic urticaria Kevin Viera MD 04/20/2019 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 Kevin Viera MD 04/13/2019 J30.1 Allergic rhinitis due to pollen Kevin Viera MD 04/13/2019 J30.89 Other allergic rhinitis Kevin Viera MD 04/06/2019 J30.1 Allergic rhinitis due to pollen Kevin Viera MD 04/06/2019 J30.89 Other allergic rhinitis Kevin Viear MD 03/30/2019 J30.1 Allergic rhinitis due to pollen Kevin Viera MD 03/30/2019 J30.89 Other allergic rhinitis Kevin Viera MD 03/25/2019 J30.1 Allergic rhinitis due to pollen Kevin Viera MD 03/25/2019 J30.89 Other allergic jinny Viera MD 03/23/2019 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 Kevin Viera MD 03/23/2019 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 Kevin Viera MD 03/16/2019 J30.1 Allergic rhinitis due to pollen Kevin Viera MD 03/16/2019 J30.1 Allergic rhinitis due to pollen KATHRYN Brown 03/16/2019 J30.1 Allergic rhinitis due to pollen Kevin Viera MD 03/16/2019 J30.89 Other allergic rhinitis Kevin Viera MD 03/16/2019 J30.89 Other allergic rhinitis KATHRYN Brown 03/16/2019 J30.89 Other allergic rhinitis Kevin Viera MD 03/16/2019 L50.1 Idiopathic urticaria Kevin Viera MD 03/16/2019 L50.1 Idiopathic urticaria KATHRYN Brown 03/16/2019 L50.0 Allergic urticaria Kevin Viera MD 03/16/2019 L50.0 Allergic urticaria KATHRYN Brown 03/16/2019 Z91.018 Allergy to other foods Kevin Viera MD 03/16/2019 Z91.018 Allergy to other foods KATHRYN Brwon 03/09/2019 J30.1 Allergic rhinitis due to pollen Kevin Viera MD 03/09/2019 J30.89 Other allergic rhinitis Kevin Viera MD 03/02/2019 J30.1 Allergic rhinitis due to pollen Kevin Viera MD 03/02/2019 J30.89 Other allergic rhinitis Kevin Viera MD 02/25/2019 J30.1 Allergic rhinitis due to pollen Kevin Viera MD 02/25/2019 J30.89 Other allergic rhinitis Kevin Viera MD 02/23/2019 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 Kevin Viera MD 02/23/2019 L50.1 Idiopathic shahla Viera MD 02/16/2019 J30.1 Allergic rhinitis due to pollen Kevin Viera MD 02/16/2019 J30.89 Other allergic rhinitis Kevin Viera MD 02/09/2019 J30.1 Allergic rhinitis due to pollen Kevin Viera MD 02/09/2019 J30.89 Other allergic rhinitis Kevin Viera MD 02/04/2019 J30.1 Allergic rhinitis due to pollen Kevin Viera MD 02/04/2019 J30.89 Other allergic rhinitis Kevin Viera MD 01/28/2019 J30.1 Allergic rhinitis due to pollen Kevin Viera MD 01/28/2019 J30.89 Other allergic rhinitis Kevin Viera MD 01/26/2019 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 Kevin Viera MD 01/26/2019 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 Kevin Viera MD 01/18/2019 J30.1 Allergic rhinitis due to pollen Kevin Viera MD 01/18/2019 J30.1 Allergic rhinitis due to pollen Kevin Viera MD 01/18/2019 J30.89 Other allergic rhinitis Kevin Viera MD 01/14/2019 L50.1 Idiopathic urticaria Kevin Viera MD 01/14/2019 L50.1 Idiopathic urticaria Injection 1 12/29/2018 L50.1 Idiopathic urticaria Kevin Viera MD 12/29/2018 L50.1 Idiopathic urticaria Kevin Viera MD 12/01/2018 L50.1 Idiopathic urticaria Kevin Viera MD 12/01/2018 L50.1 Idiopathic urticaria Kevin Viera MD Plan of Treatment Future Appointment(s):06/22/2019 9:30 am - Injection 1 at [facility]62/15/2019 9 :30 am - Yasmeen Caruso [employer] ACCOUNT EXECUTIVE at [facility]72/24/2019 - Kevin Viera, MD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 Functional Status Description No Information Available Mental Status Description No Information Available Referrals Refer to Reason for Referral Status Appt Date Kevin Viera MD Created [address] [place] [address] [phone] Manish Saldaña MD Positive GEOFFREY. Patient is requesting 2nd opinion Sent [address] [place] [address] [phone]
--- OUTSIDE RECORDS SUMMARY | 2019-06-07 18:06 | XMS REPORT | Continuity of Care Document ---
:1955 External Reference #:[id number] Author Name Manish Saldaña M.D. (transmitted by agent of provider Adamaris Barrera) Address [address] [place] [address] Care Team Providers Name Role Phone Israel Shafer MD - Internal Care Team Information Wrapper Off [phone] Medicine Rob Aguilar MD - Family Medicine Care Team Information Wrapper Off Problems Active Problems Provider Date Shoulder joint pain Massimo Smith M.D. Onset: 05/31/2015 Strain of muscle, fascia and tendon of long Massimo Smith M.D. Onset: 09/13 head of biceps, right arm, subsequent encounter Lumbar spondylosis Ashu Gonzalez M.D. Onset: 10/10/2015 Arthrodesis status Ashu Gonzalez M.D. Onset: 10/10/2015 Lumbar radiculopathy Kendall Norris M.D. Onset: 03/16/2018 Social History Type Date Description Comments Sex Unknown Tobacco Use Start: Unknown Never Smoked Cigarettes Smoking Status Reviewed: 05/24/19 Never Smoked Cigarettes ETOH Use Denies alcohol use Tobacco Use Start: Unknown Patient has never smoked Recreational Drug Use Denies Drug Use Exercise Type/Frequency Does not exercise Allergies, Adverse Reactions, Alerts Active Allergies Reaction Severity Comments Date Floxin rash 05/31/2015 Augmentin Hives 01/31/2017 Inactive Allergies Doxycycline Urticaria Patient prescribed and just finished by Dr. Aguilar 01/31/2017 Morphine 09/14/2018 Oxycodone Itching 10/19/2018 Hydrocodone Swelling 10/19/2018 Penicillin Hives 10/19/2018 Zofran Itching 10/19/2018 Medications Active Medications SIG Qnty Indications Ordering Date Provider Famotidine 1 by mouth every 90tabs Manish Saldaña, 05/24/2019 20mg day as needed M.D. Tablets [facility] Nerve Pain Apply twice daily 5ml Manish Saldaña, 05/24/2019 Relief as needed for M.D. Ointment neuropathic pain Omeprazole 1 by mouth every Unknown 40mg day Capsules DR Cetirizine HCL 1 by mouth every Unknown 10mg day Tablets Trazodone HCL 1 tablet at bedtime Unknown 50mg as needed Tablets Furosemide 1 by mouth every Unknown 40mg day Tablets Verapamil HCL 1 tab daily Unknown 40mg Tablets Doxycycline Hyclate Take 1 Tablet By Unknown Mouth Every 12 100mg Tablets Hours For 14 Days Xolair Unknown 75mg/0.5ML Soln Prefill Syringe Bariatric Fusion 1 a day Unknown Chewtabs Gabapentin Geovanni Bravo, 300mg MD Capsules Prednisone Take 2 Tablets By Unknown 10mg Mouth Once Daily Tablets History Medications Hydrocodone 1-2 every 30tabs M43.16 Vassilios 12/09/2018 - Bitartrate/Acetaminophen 6-8 hours MD Arron Unknown 5-325mg as needed Tablets pain [place] take 1-2 30tabs M43.16 Vassilios 11/27/2018 - 5-325mg Tablets tabs by MD Arron 12/24/2018 mouth every 6-8 hours as needed for pain. Z48.89 Cyclobenzaprine HCL take 1 tablet 21tabs Z48.89 Vassilios 11/23/2018 - 10mg by mouth up MD Arron 04/20/2019 Tablets to three times a day as needed Medications Administered in Office Medication SIG Qnty Indications Ordering Provider Date Celestone 3 mg and 3mg Massimo Smith M.D. 09/13/2015 Injection Inj, Regadenoson, 0.1 MG Keaton Pagan M.D., 08/18/2015 Injection FACC, FASNC Inj, Regadenoson, 0.1 MG Herberth Fields, DO FACC 08/18/2015 Injection Technetium TC 99M Keaton Pagan M.D., 08/18/2015 Tetrofosmin, Per Unit Dose [facility] Up To 40 Millicuries Injection Technetium TC 99M Herberth Fields DO [facility] 08/18/2015 Tetrofosmin, Per Unit Dose Up To 40 Millicuries Injection Depomedrol 80MG Massimo Smith M.D. 05/31/2015 Injection Immunizations Description No Information Available Vital Signs Date Vital Result Comment 05/24/2019 2:43pm Height 63 inches 5'3" Weight 210.38 lb Heart Rate 71 /min BP Systolic Sitting 132 mmHg BP Diastolic Sitting 80 mmHg Pain Level 0 O2 % BldC Oximetry 98 % BMI (Body Mass Index) 37.3 kg/m2 04/20/2019 2:09pm Height 63 inches 5'3" Weight 203.00 lb Heart Rate 76 /min BP Systolic Sitting 128 mmHg BP Diastolic Sitting 80 mmHg Pain Level 0 O2 % BldC Oximetry 98 % BMI (Body Mass Index) 36.0 kg/m2 Results Test Date Facility Test Result H/L Range Note Immunoglobulins [facility] Immunoglobulin G 598 mg/dL Abnormal 767 - 1 Serum Quant [address] [place] [address] [phone] Immunoglobulin M 49 mg/dL 37 - 286 Immunoglobulin A 35 mg/dL Abnormal 61 - 356 Celiac Panel 04/27/2019 [facility] Tissue Transglutaminase <1.2 U/mL [address] [place] [address] [phone] Tissue Transglutaminase IgA Ab <1.2 U/mL 3 Gliadin IgA <10.0 U 4 Gliadin IgG <10.0 U 5 Immunoglobulin A 31 mg/dL Abnormal 61 - 356 Celiac Interpretation See Comment 6 Celiac Hla 04/27/2019 [facility] Hla-Dqa1 SEE BELOW [address] [place] [address] [phone] Hla-DQB1 SEE BELOW 8 Celiac Gene Pairs Present? No Celiac Gene Interpretation See Comment 9 Alicia Igg AB Reflex 04/27/2019 [facility] SS-A/Ro Antibody <0.2 U [address] [place] [address] [phone] SS-B/La Antibody <0.2 U 11 Sm (Viera) IgG Antibody <0.2 U 12 PRIVACY COMPLIANCE MANAGER Antibody, IgG <0.2 U 13 Scl-70 (Scleroderma) Antibody <0.2 U 14 Simona-1 Antibody <0.2 U 15 Cardiolipin 04/27/2019 [facility] Phospholipid Ab < 9.[address] IgM, [address] [place], [place] [id number] [phone] Phospholipid Ab IgG < 9.4 GPL 17 Laboratory test 04/27/2019 [facility] Complement C3 160 mg/dL 75 - 175 18 [place] [address] [phone] Complement C4 29 mg/dL 14 - 40 19 Anti Double Stranded Dna AB <12.3 IU/mL 20 Immunoglobulin E (Ige) 10.1 kU/L <= 214 21 Anca AB Ser If 04/27/2019 [facility] C-Anca [place] [address] [phone] P-Anca Negative Negative 22 Laboratory test 04/27/2019 [facility] Lyme Screen Negative Negative finding [facility] [address] W/ [place] [address] WB [phone] Creatine Kinase(CK) 39 U/L Normal 10-223 Aldolase 3.7 U/L <7.7 23 Hepatitis Acute 04/27/2019 [facility] Hepatitis A AB Negative Negative Panel [facility] [place] [address] [phone] Hepatitis B Core AB Igm Nonreactive Nonreactive Hepatitis B Surface Ag Negative Negative Hepatitis C Antibody 04/27/2019 [facility] HCV Index 0.00 s/[place] [address] [phone] Hepatitis C Antibody Negative Negative 1 Test Performed by: [facility] [employer] [facility] [employer] [address] [place] [address] 2 REFERENCE VALUE <6.0 (Negative) Test Performed by: [facility] [employer] [facility] @[employer] [place] [address] 3 REFERENCE VALUE <4.0 (Negative) Test Performed by: [place] [address] 4 REFERENCE VALUE <20.0 (Negative) Test Performed by: [place] [address] 5 REFERENCE VALUE <20.0 (Negative) Test Performed by: [place] [address] 6 Negative serology. Celiac disease unlikely. However, approximately 10% of patients with celiac disease are seronegative. Also, patients who are already adhering to a gluten-free diet may be seronegative. If celiac disease is highly clinically suspected, consider HLA-DQ typing. Test Performed by: [place] [address] 7 RESULT: 01,03 REFERENCE VALUE Not Applicable 8 RESULT: 03:01,05:01 DQ Serologic Equivalent: 7,5 REFERENCE VALUE Not Applicable 9 The absence of HLA celiac permissive genes would make the presence of celiac disease unlikely. ADDITIONAL INFORMATION Method: Molecular typing of HLA antigens performed using reverse SSOP and/or SSP methods, reported as serological equivalents and low to medium resolution molecular values. Performing Laboratory CLIA# [id number] Test Performed by: [facility] - [facility] [address] [place] [address] 10 REFERENCE VALUE <1.0 (Negative) 11 REFERENCE VALUE <1.0 (Negative) 12 REFERENCE VALUE <1.0 (Negative) 13 REFERENCE VALUE <1.0 (Negative) 14 REFERENCE VALUE <1.0 (Negative) 15 REFERENCE VALUE <1.0 (Negative) Test Performed by: [facility] [place] [address] 16 REFERENCE VALUE <15.0 (Negative) 17 REFERENCE VALUE <15.0 (Negative) Test Performed by: [facility] [place] [address] 18 Test Performed by: [facility] [place] [address] 19 Test Performed by: [facility] [place] [address] 20 REFERENCE VALUE <30.0 (Negative) Test Performed by: [place] [address] 21 Test Performed by: [facility] [place] [address] 22 Negative for cANCA and pANCA patterns by immunofluorescence. ADDITIONAL INFORMATION This test was developed and its performance characteristics determined by [facility] in a manner consistent with CLIA requirements. This test has not been cleared or approved by the U.S. Food and Drug Administration. Test Performed by: [place] [address] 23 Test Performed by: [facility] - [address] [address] Procedures Description No Information Available Medical Devices Description No Information Available Encounters Type Date Location Provider Dx Diagnosis Office Visit 04/20/2019 Rheumatology Manish Saldaña, R76.0 Raised antibody 2:00p [facility] [employer] M.DTristan titer R21 Rash and other nonspecific skin eruption M47.26 Other spondylosis with radiculopathy, lumbar region L03.115 Cellulitis of right lower limb R74.8 Abnormal levels of other serum enzymes Office Visit 03/08/2019 3:30p Neurosurgery [facility] [place], Z48.89 Encounter for [employer] PA other specified surgical aftercare Assessments Date Code Description Provider 05/24/2019 R76.0 Raised antibody titer Manish Saldaña M.D. 05/24/2019 R21 Rash and other nonspecific skin eruption Manish Saldaña M.D. 05/24/2019 K21.9 Gastro-esophageal reflux disease without Manish Saldaña M.D. esophagitis 05/24/2019 M43.16 Spondylolisthesis, lumbar region Manish Saldaña M.D. 04/20/2019 R76.0 Raised antibody titer Manish Saldaña M.D. 04/20/2019 R21 Rash and other nonspecific skin eruption Manish Saldaña M.D. 04/20/2019 M47.26 Other spondylosis with radiculopathy, Manish Saldaña M.D. lumbar region 04/20/2019 L03.115 Cellulitis of right lower limb Manish Saldaña M.D. 04/20/2019 R74.8 Abnormal levels of other serum enzymes Manish Saldaña M.D. 03/08/2019 Z48.89 Encounter for other specified surgical KATHRYN Mukherjee aftercare 12/25/2018 Z48.89 Encounter for other specified surgical Lida Heller MD aftercare 12/25/2018 M47.26 Other spondylosis with radiculopathy, Lida Heller MD lumbar region 12/09/2018 Z48.89 Encounter for other specified surgical Lida Heller MD aftercare 11/23/2018 Z48.89 Encounter for other specified surgical Samantha Bower PA-C aftercare Plan of Treatment Future Appointment(s):11/22/2019 10:00 am - Manish Saldaña M.D. at [facility]06/01/2019 9:20 am - Gomez Morrow MD at [facility] Dermatology AT Gldzcnfb44/04/2019 11:30 am - Lida Heller MD at [facility]05/24/2019 - Manish Saldaña M.D.R76.0 Raised antibody titerReferral:Kevin Viera MD, Allergy & UxvfgnaoebB50 Rash and other nonspecific skin jvipozukC66.9 Gastro-esophageal reflux disease without fswsjlepjhaI55.16 Spondylolisthesis, lumbar regionFollow up:Follow up in 4 to 6 months or sooner if needed Functional Status Description No Information Available Mental Status Description No Information Available Referrals Refer to Reason for Referral Status Appt Date Kevin Viera MD 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
--- OUTSIDE RECORDS SUMMARY | 2019-06-07 18:06 | XMS REPORT | Continuity of Care Document ---
:1955 External Reference #:[id number] Author Name Melissa Flores Care Team Providers Name Role Phone Rob Aguilar MD - Family Care Team Information Spice Fumigator Medicine Manish Saldaña MD - Rheumatology Care Team Information Spice Fumigator Problems Active Problems Provider Date Allergic rhinitis [...] needed Doxepin HCL 1-2 caps three 60caps [facility]. 11/10/2018 25mg Capsules times a day as MD Maximiliano needed Levocetirizine take one tablet 30tabs [facility].1 [facility] 10/07/2018 Dihydrochloride by mouth daily MD Maximiliano 5mg at bedtime Tablets Prednisone 6 tablets (30 36tabs [facility] 09/22/2018 5mg Tablets mg) by mouth MD Maximiliano twice a day x 3 days Cetirizine HCL Take 1 Tablet 30tabs L50.0 [facility] [place] A. 04/29/2018 10mg By Mouth Once MD Maximiliano Tablets Daily AT Bedtime Benadryl Take 2 tabs 90tabs L50.0 [facility] 04/16/2018 25mg Tablets every 6 hours MD Maximiliano as needed. Epinephrine One dose 1units L50.0 [facility] 01/02/2018 0.3mg/0.3ML injected into MD Maximiliano [...] 50mg Tablets Paroxetine HCL Rob Aguilar, 40mg Tablets Medications Administered in Office Medication SIG [...] Subq/Im Injection Allergy Injection 2 Or More eKvin Viera MD 02/16/2019 Injection Allergy Injection 2 [...] 01/27/2018 Injection Allergy Injection 2 Or More Kevin Viera MD 01/20/2018 Injection Allergy Injection 2 [...] CPT Code Status Date Vaccine Lot # [id number] Given 06/01/2019 Pneumococcal Vaccine 2Yrs Or Older [id number] Vital Signs Date Vital Result Comment 06/01/2019 [...] Sm (Viera) IgG Antibody <0.2 U 12 BENEFITS COORDINATOR Antibody, IgG <0.2 U 13 Scl-70 (Scleroderma) [...] Sm (Viera) IgG Antibody <0.2 U 35 BENEFITS COORDINATOR Antibody, IgG <0.2 U 36 Scl-70 (Scleroderma) [...] C Antibody Negative 1 Test Performed by: [facility] - [place] [address] [place] [address] 2 Test Performed by: [facility] - [facility] [employer] [address] [place] [address] 3 REFERENCE VALUE <4.0 (Negative) Test Performed by: [facility] [address] 4 REFERENCE VALUE <20.0 (Negative) Test Performed by: [place] [address] 5 REFERENCE VALUE <20.0 (Negative) Test Performed by: [place] [address] 6 Negative serology. Celiac disease unlikely. However, approximately 10% of patients with celiac disease are seronegative. Also, patients who are already adhering to a gluten-free diet may be seronegative. If celiac disease is highly clinically suspected, consider HLA-DQ typing. Test Performed by: [place] [address] 7 Test Performed by: [place] [address] 8 REFERENCE VALUE <4.0 (Negative) Test Performed by: [place] [address] 9 REFERENCE VALUE <20.0 (Negative) Test Performed by: [address] [address] Test Performed by: [place] [address] 11 REFERENCE VALUE <4.0 (Negative) Test Performed by: [facility] [address] 12 REFERENCE VALUE <20.0 (Negative) Test Performed by: [facility] [address] 13 REFERENCE VALUE <20.0 (Negative) Test Performed by: [facility] [address] 14 REFERENCE VALUE <1.0 (Negative) 15 Negative serology. Celiac disease unlikely. However, approximately 10% of patients with celiac disease are seronegative. Also, patients who are already adhering to a gluten-free diet may be seronegative. If celiac disease is highly clinically suspected, consider HLA-DQ typing. Test Performed by: [facility] [address] 16 Test Performed by: [place] [address] 17 REFERENCE VALUE <4.0 (Negative) Test Performed by: [place] [address] 18 Test Performed by: [facility] [place] [address] 19 REFERENCE VALUE <4.0 (Negative) Test Performed by: [address] [address] 20 REFERENCE VALUE <20.0 (Negative) Test Performed by: [facility] [employer] [address] [place] [address] 21 REFERENCE VALUE <20.0 (Negative) Test Performed by: [address] [address] 22 REFERENCE VALUE <4.0 (Negative) Test Performed by: [address] [address] 23 REFERENCE VALUE <20.0 (Negative) Test Performed by: [facility] [employer] [place] [address] 24 Test Performed by: [facility] [employer] [place] [address] 25 Test Performed by: [facility] [employer] [address] [place] [address] 26 REFERENCE VALUE <4.0 (Negative) Test Performed by: [facility] [employer] [place] [address] 27 REFERENCE VALUE <20.0 (Negative) Test Performed by: [facility] - [address] [address] 28 REFERENCE VALUE <20.0 (Negative) Test Performed by: [address] [address] 29 Negative serology. Celiac disease unlikely. However, approximately 10% of patients with celiac disease are seronegative. Also, patients who are already adhering to a gluten-free diet may be seronegative. If celiac disease is highly clinically suspected, consider HLA-DQ typing. Test Performed by: [address] [address] 30 Test Performed by: [place] [address] 31 REFERENCE VALUE <4.0 (Negative) Test Performed by: [place] [address] 32 REFERENCE VALUE <20.0 (Negative) Test Performed by: [address] [address] 33 Test Performed by: [address] [address] 34 REFERENCE VALUE <4.0 (Negative) Test Performed by: [address] [address] 35 REFERENCE VALUE <20.0 (Negative) Test Performed by: [facility] - [address] [address] 36 REFERENCE VALUE <20.0 (Negative) Test Performed by: [address] [address] 37 REFERENCE VALUE <1.0 (Negative) 38 Negative serology. Celiac disease unlikely. However, approximately 10% of patients with celiac disease are seronegative. Also, patients who are already adhering to a gluten-free diet may be seronegative. If celiac disease is highly clinically suspected, consider HLA-DQ typing. Test Performed by: [facility] - [address] [address] Test Performed by: [facility] - [address] [address] 40 REFERENCE VALUE <4.0 (Negative) Test Performed by: [facility] - [address] [address] 41 Test Performed by: [address] [address] 42 REFERENCE VALUE <4.0 (Negative) Test Performed by: [facility] - [address] [address] 43 REFERENCE VALUE <20.0 (Negative) Test Performed by: [facility] - [address] [address] 44 REFERENCE VALUE <20.0 (Negative) Test Performed by: [facility] - [address] [address] 45 REFERENCE VALUE <4.0 (Negative) Test Performed by: [facility] - [address] [address] 46 REFERENCE VALUE <20.0 (Negative) Test Performed by: [address] [address] Procedures Date Code Description Status 06/01/2019 14085 Allergy Injection 2 Or More Completed 05/25/2019 88826 Therapeutic, Prophylactic Or Diagnostic Injection Subq/Im Completed 05/18/2019 45943 Allergy Injection 2 Or More Completed 05/11/2019 11333 Allergy Injection 2 Or More Completed 05/04/2019 81323 Allergy Injection 2 Or More Completed 04/27/2019 75884 Allergy Injection 2 Or More Completed 04/22/2019 81356 Allergy Injection 2 Or More Completed 04/20/2019 02455 Therapeutic, Prophylactic Or Diagnostic Injection Subq/Im Completed 04/13/2019 54581 Allergy Injection 2 Or More Completed 04/06/2019 04033 Allergy Injection 2 Or More Completed 03/30/2019 56107 Allergy Injection 2 Or More Completed 03/25/2019 06443 Allergy Injection 2 Or More Completed 03/23/2019 44072 Therapeutic, Prophylactic Or Diagnostic Injection Subq/Im Completed 03/16/2019 10746 Allergy Injection 2 Or More Completed 03/09/2019 67054 Allergy Injection 2 Or More Completed 03/02/2019 71960 Allergy Injection 2 Or More Completed 02/25/2019 30145 Allergy Injection 2 Or More Completed 02/23/2019 00084 Therapeutic, Prophylactic Or Diagnostic Injection Subq/Im Completed 02/16/2019 95733 Allergy Injection 2 Or More Completed 02/09/2019 62364 Allergy Injection 2 Or More Completed 02/04/2019 38187 Allergy Injection 2 Or More Completed 01/28/2019 65907 Allergy Injection 2 Or More Completed 01/26/2019 07748 Therapeutic, Prophylactic Or Diagnostic Injection Subq/Im Completed 01/18/2019 94934 Allergy Antigens Single Or Multiple Completed 01/14/2019 67128 Therapeutic, Prophylactic Or Diagnostic Injection Subq/Im Completed 01/14/2019 02919 Therapeutic, Prophylactic Or Diagnostic Injection Subq/Im Completed 12/29/2018 71264 Therapeutic, Prophylactic Or Diagnostic Injection Subq/Im Completed Medical Devices Description No Information Available Encounters Type Date Location Provider Dx Diagnosis Office Visit 06/01/2019 Tony Henderson D83.8 Other common variable 2:30p MD Maximiliano immunodeficiencies Office Visit 03/16/2019 KATHRYN Rodriguez J30.1 Allergic rhinitis due to 11:00a pollen J30.89 Other allergic rhinitis L50.1 Idiopathic [...] MD 04/06/2019 J30.89 Other allergic rhinitis Kevin Viera MD 03/30/2019 J30.1 Allergic rhinitis due to pollen Kevin Viera MD 03/30/2019 J30.89 Other allergic rhinitis Kevin Viera MD 03/25/2019 J30.1 Allergic rhinitis due to pollen Kevin Viera MD 03/25/2019 J30.89 Other allergic rhinitis Kevin Viera MD 03/23/2019 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 Kevin Viera MD 03/23/2019 L50.1 Idiopathic urticaria Kevin Viera MD 03/16/2019 J30.1 Allergic rhinitis due to pollen Kevin Viera MD 03/16/2019 J30.1 Allergic rhinitis due to pollen KATHRYN Brown 03/16/2019 J30.1 Allergic rhinitis due to pollen Kevin Viera MD 03/16/2019 J30.89 Other allergic rhinitis Kevin Viera MD 03/16/2019 J30.89 Other allergic rhinitis KATHRYN Brown 03/16/2019 J30.89 Other allergic rhinitis Kevin Viera MD 03/16/2019 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 Kevin Viera MD 03/16/2019 L50.1 Idiopathic urticaria KATHRYN Brown 03/16/2019 L50.0 Allergic urticaria Kevin Viera MD 03/16/2019 L50.0 Allergic urticaria KATHRYN Brown 03/16/2019 Z91.018 Allergy to other foods Kevin Viera MD 03/16/2019 Z91.018 Allergy to other foods KATHRYN Brown 03/09/2019 J30.1 Allergic rhinitis due to pollen [...] chayitoaria Kevin Viera MD 01/26/2019 L50.1 Idiopathic shahla Viera MD 01/18/2019 J30.1 Allergic rhinitis due to pollen Kevin Viera MD 01/18/2019 J30.1 Allergic rhinitis due to pollen Kevin Viera MD 01/18/2019 J30.89 Other allergic rhinitis Kevin Viera MD 01/14/2019 L50.1 Idiopathic urticaria Kevin Viera MD 01/14/2019 L50.1 Idiopathic urticaria Injection 1 12/29/2018 L50.1 Idiopathic urticaria Kevin Viera MD 12/29/2018 L50.1 Idiopathic urticaria Kevin Viera MD Plan of Treatment Future Appointment(s):06/29/2019 10:00 am - Injection 1 at [facility]49/22/2019 10 :00 am - Kevin Viera MD at Edbxmcwl75/15/2019 9:30 am - Injection 1 at Rmrslomk42/15/2019 9:30 am - Yasmeen Caruso NP at Iydpjhar44/24/2019 - Kevin Viera, MD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 Functional Status Description No Information Available Mental Status Description No Information Available Referrals Refer to Dr Reason for Referral Status Appt Date Kevin Viera MD Created [address] [place] [address] [phone] Manish Saldaña MD Positive GEOFFREY. Patient is requesting 2nd opinion Sent [address] [place] [address] [phone]
--- OUTSIDE RECORDS SUMMARY | 2019-06-07 18:06 | XMS REPORT | Continuity of Care Document ---
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 25mg Capsules times a day as MD Maximiliano needed Levocetirizine take one tablet [facility] 10/07/2018 Dihydrochloride by mouth daily MD Maximiliano 5mg at bedtime Tablets Prednisone 6 tablets (30 [facility]tabs [facility] 09/22/2018 5mg Tablets mg) by mouth MD Maximiliano twice a day x 3 days Cetirizine HCL Take 1 Tablet 30tabs [facility].0 [facility] 04/29/2018 10mg By Mouth Once MD Maximiliano Tablets Daily AT Bedtime Benadryl Take 2 tabs 90tabs L50.0 [facility] 04/16/2018 25mg Tablets every 6 hours MD Maximiliano as needed. Epinephrine One dose 1units L50.0 [facility] 01/02/2018 0.3mg/0.3ML injected into MD Maximiliano [...] Trazodone HCL Unknown 50mg Tablets Paroxetine HCL KarmakristinRob, 40mg MD Tablets Medications Administered in Office Medication SIG Qnty Indications Ordering Provider Date Injection Omalizumab 5 MG Kevin Viera MD [...] MD 04/15/2017 Diagnostic Injection Subq/Im Injection Immunizations Description No Information Available Vital Signs Date Vital Result Comment 06/01/2019 [...] Date Facility Test Result H/L Range Note Lab Results 04/27/2019 N2N/CCD Import Immunoglobulin G 598 mg/dL Abnormal 767-1590 1 Immunoglobulin M 49 mg/dL 37-286 Immunoglobulin A [...] Sm (Viera) IgG Antibody <0.2 U 12 [employer] WORK[employer]OVEL Antibody, IgG <0.2 U 13 Scl-70 (Scleroderma) [...] Sm (Viera) IgG Antibody <0.2 U 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 [place] [address] 3 REFERENCE VALUE <4.0 (Negative) Test Performed by: [facility] - [facility] [place] [address] 4 REFERENCE VALUE <20.0 (Negative) Test Performed by: [place] [address] 5 REFERENCE VALUE <20.0 (Negative) Test Performed by: [place] [address] 6 Negative serology. Celiac disease unlikely. However, approximately 10% of patients with celiac disease are seronegative. Also, patients who are already adhering to a gluten-free diet may be seronegative. If celiac disease is highly clinically suspected, consider HLA-DQ typing. Test Performed by: [place] [address] 7 Test Performed by: [place] [address] 8 REFERENCE VALUE <4.0 (Negative) Test Performed by: [place] [address] 9 REFERENCE VALUE <20.0 (Negative) Test Performed by: [place] [address] 10 Test Performed by: [place] [address] 11 REFERENCE VALUE <4.0 (Negative) Test Performed by: [place] [address] 12 REFERENCE VALUE <20.0 (Negative) Test Performed by: [facility] - [address] [address] 13 REFERENCE VALUE <20.0 (Negative) Test Performed by: [facility] [place] [address] 14 REFERENCE VALUE <1.0 (Negative) 15 Negative serology. Celiac disease unlikely. However, approximately 10% of patients with celiac disease are seronegative. Also, patients who are already adhering to a gluten-free diet may be seronegative. If celiac disease is highly clinically suspected, consider HLA-DQ typing. Test Performed by: [address] [address] Test Performed by: [place] [address] 17 REFERENCE VALUE <4.0 (Negative) Test Performed by: [place] [address] 18 Test Performed by: [place] [address] 19 REFERENCE VALUE <4.0 (Negative) Test Performed by: [facility] [email or web address] [address] 20 REFERENCE VALUE <20.0 (Negative) Test Performed by: [facility] [employer] [address] [place] [address] 21 REFERENCE VALUE <20.0 (Negative) Test Performed by: [address] [address] 22 REFERENCE VALUE <4.0 (Negative) Test Performed by: [facility] [employer] [address] [place] [address] 23 REFERENCE VALUE <20.0 (Negative) Test Performed by: [address] [address] Test Performed by: [facility] [employer] [address] [place] [address] 25 Test Performed by: [facility] [employer] [address] [place] [address] 26 REFERENCE VALUE <4.0 (Negative) Test Performed by: [facility] [employer] [address] [place] [address] 27 REFERENCE VALUE <20.0 (Negative) Test Performed by: [facility] [employer] [address] [place] [address] 28 REFERENCE VALUE <20.0 (Negative) Test Performed by: [place] [address] 29 Negative serology. Celiac disease unlikely. However, approximately 10% of patients with celiac disease are seronegative. Also, patients who are already adhering to a gluten-free diet may be seronegative. If celiac disease is highly clinically suspected, consider HLA-DQ typing. Test Performed by: [place] [address] 30 Test Performed by: [place] [address] 31 REFERENCE VALUE <4.0 (Negative) Test Performed by: [place] [address] 32 REFERENCE VALUE <20.0 (Negative) Test Performed by: [place] [address] 33 Test Performed by: [place] [address] 34 REFERENCE VALUE <4.0 (Negative) Test Performed by: [place] [address] 35 REFERENCE VALUE <20.0 (Negative) Test Performed by: [place] [address] 36 REFERENCE VALUE <20.0 (Negative) Test Performed by: [place] [address] 37 REFERENCE VALUE <1.0 (Negative) 38 Negative serology. Celiac disease unlikely. However, approximately 10% of patients with celiac disease are seronegative. Also, patients who are already adhering to a gluten-free diet may be seronegative. If celiac disease is highly clinically suspected, consider HLA-DQ typing. Test Performed by: [place] [address] 39 Test Performed by: [place] [address] 40 REFERENCE VALUE <4.0 (Negative) Test Performed by: [place] [address] 41 Test Performed by: [place] [address] 42 REFERENCE VALUE <4.0 (Negative) Test Performed by: [place] [address] 43 REFERENCE VALUE <20.0 (Negative) Test Performed by: [facility] [employer] [place] [address] 44 REFERENCE VALUE <20.0 (Negative) Test Performed by: [facility] - [address] [address] 45 REFERENCE VALUE <4.0 (Negative) Test Performed by: [facility] - [address] [address] 46 REFERENCE VALUE <20.0 (Negative) Test Performed by: [address] [address] Procedures Date Code Description Status 05/25/2019 24082 Therapeutic, Prophylactic Or Diagnostic Injection Subq/Im Completed 05/18/2019 18237 Allergy Injection 2 Or More Completed 05/11/2019 67187 Allergy Injection 2 Or More Completed 05/04/2019 04480 Allergy Injection 2 Or More Completed 04/27/2019 44351 Allergy Injection 2 Or More Completed 04/22/2019 98804 Allergy Injection 2 Or More Completed 04/20/2019 14335 Therapeutic, Prophylactic Or Diagnostic Injection Subq/Im Completed 04/13/2019 23123 Allergy Injection 2 Or More Completed 04/06/2019 27477 Allergy Injection 2 Or More Completed 03/30/2019 51919 Allergy Injection 2 Or More Completed 03/25/2019 58377 Allergy Injection 2 Or More Completed 03/23/2019 81535 Therapeutic, Prophylactic Or Diagnostic Injection Subq/Im Completed 03/16/2019 54810 Allergy Injection 2 Or More Completed 03/09/2019 82803 Allergy Injection 2 Or More Completed 03/02/2019 17864 Allergy Injection 2 Or More Completed 02/25/2019 33882 Allergy Injection 2 Or More Completed 02/23/2019 96168 Therapeutic, Prophylactic Or Diagnostic Injection Subq/Im Completed 02/16/2019 28047 Allergy Injection 2 Or More Completed 02/09/2019 35947 Allergy Injection 2 Or More Completed 02/04/2019 19247 Allergy Injection 2 Or More Completed 01/28/2019 16403 Allergy Injection 2 Or More Completed 01/26/2019 92250 Therapeutic, Prophylactic Or Diagnostic Injection Subq/Im Completed 01/18/2019 99794 Allergy Antigens Single Or Multiple Completed 01/14/2019 43498 Therapeutic, Prophylactic Or Diagnostic Injection Subq/Im Completed 01/14/2019 33266 Therapeutic, Prophylactic Or Diagnostic Injection Subq/Im Completed 12/29/2018 84510 Therapeutic, Prophylactic Or Diagnostic Injection Subq/Im Completed 12/01/2018 11592 Therapeutic, Prophylactic Or Diagnostic Injection Subq/Im Completed Medical Devices Description No Information Available Encounters Type Date Location Provider Dx Diagnosis Office Visit 03/16/2019 11:00a KATHRYN Rodriguez J30.1 Allergic rhinitis due to pollen J30.89 Other allergic rhinitis L50.1 Idiopathic urticaria L50.0 Allergic urticaria Z91.018 Allergy to other foods Assessments Date Code Description Provider 05/25/2019 L50.1 Idiopathic urticaria Kevin Viera MD [...] rhinitis Kevin Viera MD 03/23/2019 L50.1 Idiopathic urticaria Kevin Viera MD 03/23/2019 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 [...] chayitoaria Kevin Viera MD 02/23/2019 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 Kevin Viera MD 02/16/2019 J30.1 Allergic rhinitis due [...] rhinitis Kevin Viera MD 01/14/2019 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 Kevin Viera MD 01/14/2019 L50.1 Idiopathic urticaria Injection 1 12/29/2018 L50.1 Idiopathic urticaria Kevin Viera MD 12/29/2018 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 Patient is requesting 2nd opinion Sent [address] [place] [address] [phone]
== END 2019-06-07 18:03 | disposition home health service (06) ==
LOC: UCCORT 16:47
DX: R06.02 Shortness of breath (principal); R07.89 Other chest pain; Z88.5 Allergy status to narcotic agent; Z88.0 Allergy status to penicillin; Z88.6 Allergy status to analgesic agent; Z88.8 Allergy status to other drugs, medicaments and biological substances; Z88.1 Allergy status to other antibiotic agents; I11.0 Hypertensive heart disease with heart failure; I50.9 Heart failure, unspecified; K21.9 Gastro-esophageal reflux disease without esophagitis; F41.9 Anxiety disorder, unspecified
CPT/HCPCS: 71046; 93005; 99212; G0463

== ENCOUNTER 2019-06-17 12:46 | Emergency (ER) | payer MEDICARE, OTHER ==
[2019-06-17 13:17] VITALS: BP 149/90
--- NOTE | 2019-06-17 13:26 | UC ---
Hip/Pelvis Pain - HPI Summary HPI Summary: 64 yo female presents with LEFT wrist and back pain s/p fall. 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 She did not hit her head or have LOC. She was able to get to her feet. Went to use her hand to open a honey jar and noticed increased pain in her left wrist. She also has some mild left lower back pain and is mostly concerned as she had extensive back surgery in November 2018. She denies radiation of pain, numbness, tingling, saddle anesthesia, or loss of bowel/bladder control. - History Of Current Complaint Chief Complaint: UCTrauma Stated Complaint: FELL TRAUMA TO LEFT SIDE Time Seen by Provider: 06/17/19 13:25 Hx Obtained From: Patient Onset/Duration: Sudden Onset Severity Initially: Moderate Severity Currently: Moderate Pain Intensity: 6 Pain Scale Used: 0-10 Numeric - Allergies/Home Medications Allergies/Adverse Reactions: Allergies Allergy/AdvReac Type Severity Reaction Status Date / Time codeine Allergy Severe Hives Verified 06/17/19 13:07 morphine Allergy Hives Verified 06/17/19 13:07 ondansetron [From Zofran] Allergy Hives Verified 06/17/19 13:07 Penicillins Allergy Hives Verified 06/17/19 13:07 aspirin AdvReac Unknown AVOIDS Verified 06/17/19 13:07 SINCE BARIATRIC SURGERY NSAIDS (Non-Steroidal AdvReac Unknown AVOIDS Verified 06/17/19 13:07 Anti-Inflamma SINCE BARIATRIC SURGERY amoxicillin [From Augmentin] AdvReac Itching Verified 06/17/19 13:07 clavulanic acid AdvReac Itching Verified 06/17/19 13:07 [From Augmentin] floxacin Allergy Rash Uncoded 06/17/19 13:07 "ALL ANTIBIOTICS" AdvReac See Comment Uncoded 06/17/19 13:07 Home Medications: Home Medications Polyethylene Glycol 3350 [Clearlax] 1 unit PO DAILY 06/17/19 [History Confirmed 06/17/19] diphenhydrAMINE HCl [Benadryl Allergy] 2 tab PO TID 06/17/19 [History Confirmed 06/17/19] PMH/Surg Hx/FS Hx/Imm Hx Cardiovascular History: Hypertension GI/ History: Gastroesophageal Reflux Psychological History: Anxiety - Surgical History Surgical History: Yes Surgery Procedure, Year, and Place: BARIACTRIC SURGERY 03/24. CHOLYCYSTECTOMY . SINUS SURGERY. CARPAL TUNNEL REPAIR BILAT. BACK SURGERY (L4/L5/S1) 1992. CATARACT SURGERY. TONSILLECTOMY. RIGHT KNEE AUG 2017. LEFT KNEE JANUARY 2018. top teeth extraction 04/2019. Back Surgery (spinal fusion) November 2018 - Family History Known Family History: Positive: Cardiac Disease, Hypertension - Social History Lives: With Family Alcohol Use: None Substance Use Type: None Smoking Status (MU): Never Smoked Tobacco Have You Smoked in the Last Year: No - Immunization History Most Recent Influenza Vaccination: 2017 Most Recent Tetanus Shot: UTD Most Recent Pneumonia Vaccination: 2017 Review of Systems All Other Systems Reviewed And Are Negative: No Constitutional: Positive: Negative Skin: Positive: Negative Respiratory: Positive: Negative Cardiovascular: Positive: Negative Gastrointestinal: Positive: Negative Genitourinary: Positive: Negative Neurovascular: Positive: Negative Musculoskeletal: Positive: Other: - Left wrist and back pain Neurological: Positive: Negative Psychological: Positive: Negative Physical Exam - Summary Physical Exam Summary: GENERAL: NAD. WDWN. No pain distress. SKIN: No rashes, sores, lesions, or open wounds. CHEST: No accessory muscle use. Breathing comfortably and in no distress. CV: Pulses intact radial and ulnar. Cap refill <2seconds MSK: LEFT WRIST: Mild TTP about entire left wrist without point tenderness. 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 No edema or obvious bony deformities. No snuffbox tenderness. LOW BACK: TTP over left paraspinal muscles. Pain in area with truncal twisting. Negative SLR b/l. Strength 5/5 B/L LEs including dorsiflexion and plantar flexion. FROM B/L LEs. No edema. NEURO: Alert. Sensations intact hand and all fingers. Sensations intact B/L LEs L3-S1. Reflexes intact PSYCH: Age appropriate behavior. Triage Information Reviewed: Yes Vital Signs: Initial Vital Signs Temp 97.9 F 06/17/19 12:59 Pulse 87 06/17/19 12:59 Resp 18 06/17/19 12:59 BP 149/90 06/17/19 12:59 Pulse Ox 98 06/17/19 12:59 Vital Signs Reviewed: Yes Diagnostics - Radiology Wrist XR Radiology Interpretation Completed By: Radiologist Summary of Radiographic Findings: IMPRESSION: NO EVIDENCE FOR FRACTURE. IF THE PATIENT'S SYMPTOMS PERSIST RECOMMEND FOLLOW-UP IMAGING. Thoracic XR Radiology Interpretation Completed By: Radiologist Summary of Radiographic Findings: IMPRESSION: 1. Although a few upper thoracic vertebral bodies are obscured, there is no radiographic evidence of thoracic spine fracture. 2. Osteopenia. 3. Partially imaged fusion hardware. Lumbar XR Radiology Interpretation Completed By: Radiologist Summary of Radiographic Findings: IMPRESSION: Posterior rodding. Diffuse osteopenia is noted. Fusion from T11 through S1. Hip Injury Course/Dx - Course Course Of Treatment: XRs as above. Suspect muscle strain of back and sprain of wrist. Pt eloped before XR readings citing an insurance issue. She will be called by nursing with her results - advise to rest, ice, and elevate the areas. F/u if symptoms do not improve in 5-7 days - Differential Dx/Diagnosis Provider Diagnosis: Fall, Wrist sprain Discharge ED - Sign-Out/Discharge Documenting (check all that apply): Patient Departure All imaging exams completed and their final reports reviewed: Yes - Discharge Plan Condition: Stable Disposition: ELOPEMENT Referrals: Rob Aguilar MD [Primary Care Provider] - - Billing Disposition and Condition Condition: STABLE Disposition: Elopement
== END 2019-06-17 14:36 | disposition home or self-care (01) ==
LOC: UCEAST 12:46
DX: S63.502A Unspecified sprain of left wrist, initial encounter (principal); M54.9 Dorsalgia, unspecified; M85.89 Other specified disorders of bone density and structure, multiple sites; I10 Essential (primary) hypertension; Z98.84 Bariatric surgery status; Z88.5 Allergy status to narcotic agent; Z88.8 Allergy status to other drugs, medicaments and biological substances; Z88.0 Allergy status to penicillin; Z88.1 Allergy status to other antibiotic agents; W18.09XA Striking against other object with subsequent fall, initial encounter; Y93.01 Activity, walking, marching and hiking; Y92.007 Garden or yard of unspecified non-institutional (private) residence as the place of occurrence of the external cause
CPT/HCPCS: 72070; 72110; 99212; G0463